=== PATIENT | female | born 1955 | race Caucasian/White ===

== ENCOUNTER 2018-06-30 11:40 | Outpatient (CLI) | payer OTHER ==
--- NOTE | 2018-07-10 09:11 | Mammography Report ---
Reason: SCREENING MAMMO Procedure Date: 06/30/2018 Accession Number: [id number] / [id number] Procedure: STACEY - Screening Mammo w/Logan CPT Code: FULL RESULT: EXAM: Screening Mammo w/Logan DATE: 06/30/2018 12:38 PM CLINICAL HISTORY: Screening encounter. Family history of breast cancer in a maternal aunt at age 55. TECHNIQUE: Bilateral CC and MLO views were obtained. COMPARISON: No comparison mammograms are available. FINDINGS: The breasts demonstrate diffuse fatty replacement bilaterally. Coarse typically benign calcifications are seen bilaterally. No suspicious masses, clustered microcalcifications, or regions of architectural distortion are identified. IMPRESSION: Benign findings RECOMMENDATION: Routine annual screening unless otherwise clinically indicated. BIRADS CATEGORY 2: Benign findings STANDARD QUALIFYING STATEMENTS: 1. This examination was not reviewed with the aid of Computer-Aided Detection (CAD). 2. A negative or benign imaging report should not preclude biopsy if clinically suspicious findings are present. 3. Dense breasts may obscure an underlying neoplasm. 4. This examination was reviewed with the aid of 3D breast imaging (tomosynthesis).
== END 2018-06-30 11:41 | disposition home or self-care (01) ==
LOC: DI 11:40
PROVIDERS: ATTEND Nurse Practitioner
DX: Z12.31 Encounter for screening mammogram for malignant neoplasm of breast (principal); Z80.3 Family history of malignant neoplasm of breast
CPT/HCPCS: 77063; 77067

== ENCOUNTER 2018-08-07 08:00 | Outpatient (CLI) | payer OTHER ==
[2018-08-07 14:21] LABS: H. PYLORIS ANTIGEN STL POSITIVE (Negative)
== END 2018-08-07 23:59 | disposition home or self-care (01) ==
LOC: LAB.R 08:00
PROVIDERS: ATTEND Nurse Practitioner
DX: R10.9 Unspecified abdominal pain (principal); R19.7 Diarrhea, unspecified
CPT/HCPCS: 36415; 80053; 81001; 82274; 85025; 87045; 87046; 87086; 87177; 87209; 87338; 87493

== ENCOUNTER 2018-08-07 08:00 | Outpatient (CLI) | payer OTHER ==
[2018-08-07 19:24] LABS: ALBUMIN 3.9 g/dL (3.2-5.5); ALBUMIN/GLOBULIN RATIO 1.1 (1.0-2.2); BILIRUBIN,TOTAL 0.5 mg/dL (0.2-1.0); CREATININE 0.7 mg/dL (0.4-1.0); TOTAL PROTEIN 7.3 g/dL (6.7-8.2)
[2018-08-07 19:28] LABS: GLUCOSE, URINE (UA) NEGATIVE (NEGATIVE); KETONES,URINE (UA) TRACE mg/dL (NEGATIVE); LEUKOCYTE ESTERASE, URINE NEGATIVE (NEGATIVE); NITRITE,URINE NEGATIVE (NEGATIVE); OCCULT BLOOD,URINE NEGATIVE (NEGATIVE); PROTEIN,URINE NEGATIVE (NEGATIVE); UROBILINOGEN,URINE 0.2 (NORMAL) E.U./dL (NORMAL)
[2018-08-07 19:29] LABS: BASOPHILS % (AUTO) 0.6 %; EOSINOPHILS # (AUTO) 0.1 10^3/uL (0.0-0.7); EOSINOPHILS % (AUTO) 0.8 %; LYMPHOCYTES # (AUTO) 1.7 10^3/uL (1.5-3.5); LYMPHOCYTES % (AUTO) 24.5 %; MEAN CORPUSCULAR HGB CONC 32.4 g/dL (32.0-36.0); MEAN CORPUSCULAR VOLUME 92.5 fL (81.0-99.0); MONOCYTES # (AUTO) 0.7 10^3/uL (0.0-1.0); MONOCYTES % (AUTO) 10.7 %; NEUTROPHILS # (AUTO) 4.4 10^3/uL (1.5-6.6); NEUTROPHILS % (AUTO) 63.4 %; PLT - PLATELET COUNT 324 10^3/uL (130-450); RED BLOOD COUNT 4.67 10^6/uL (4.20-5.40); RED CELL DISTRIBUTION WIDTH 13.6 % (12.0-15.0)
[2018-08-07 20:05] LABS: AMORPHOUS SEDIMENT,UR Moderate /LPF; BACTERIA,URINE Moderate /HPF (None Seen); CASTS, URINE 6-10 Hyaline Casts /LPF; CLARITY,URINE TURBID (CLEAR); MUCUS,URINE Moderate Strands; RBC,URINE 0-5 /HPF (0-5); SQUAMOUS EPITHELIAL CELL,UR FEW Squamous (<= Few)
[2018-08-07 20:06] LABS: BILIRUBIN,URINE NEGATIVE (NEGATIVE); CRYSTALS,URINE 11-25 Ca Oxalate /LPF; ICTOTEST,URINE NEGATIVE
== END 2018-08-07 23:59 | disposition home or self-care (01) ==
LOC: LAB.N 08:00
PROVIDERS: ATTEND Nurse Practitioner
DX: R10.9 Unspecified abdominal pain (principal)
CPT/HCPCS: 36415; 80053; 81001; 85025; 87086

== ENCOUNTER 2018-08-22 08:00 | Outpatient (CLI) | payer OTHER ==
[2018-08-22 12:57] LABS: H. PYLORIS ANTIGEN STL NEGATIVE (Negative)
== END 2018-08-22 23:59 | disposition home or self-care (01) ==
LOC: LAB.R 08:00
PROVIDERS: ATTEND Nurse Practitioner
DX: A04.5 Campylobacter enteritis (principal); A04.8 Other specified bacterial intestinal infections; R19.5 Other fecal abnormalities
CPT/HCPCS: 82274; 87045; 87046; 87338

== ENCOUNTER 2018-12-04 07:06 | Outpatient (CLI) | payer OTHER ==
[2018-12-04 12:37] LABS: BASOPHILS # (AUTO) 0.1 10^3/uL (0.0-0.1); BASOPHILS % (AUTO) 0.8 %; EOSINOPHILS # (AUTO) 0.1 10^3/uL (0.0-0.7); EOSINOPHILS % (AUTO) 1.3 %; HGB - HEMOGLOBIN 13.5 g/dL (12.0-16.0); LYMPHOCYTES # (AUTO) 1.7 10^3/uL (1.5-3.5); LYMPHOCYTES % (AUTO) 25.5 %; MEAN CORPUSCULAR HEMOGLOBIN 29.4 pg (27.0-31.0); MEAN CORPUSCULAR VOLUME 89.1 fL (81.0-99.0); MONOCYTES # (AUTO) 0.6 10^3/uL (0.0-1.0); MONOCYTES % (AUTO) 8.9 %; NEUTROPHILS # (AUTO) 4.1 10^3/uL (1.5-6.6); NEUTROPHILS % (AUTO) 63.5 %; PLT - PLATELET COUNT 287 10^3/uL (130-450); RED BLOOD COUNT 4.59 10^6/uL (4.20-5.40); RED CELL DISTRIBUTION WIDTH 14.2 % (12.0-15.0); WHITE BLOOD COUNT 6.5 x10^3/uL (4.8-10.8)
[2018-12-04 12:53] LABS: HB2 TOTAL 14.5 g/dL; HEMOGLOBIN A1C 0.62 g/dL; HEMOGLOBIN A1C % 6.1 % (4.6-6.2)
[2018-12-04 12:55] LABS: ALBUMIN 3.6 g/dL (3.2-5.5); ALBUMIN/GLOBULIN RATIO 1.2 (1.0-2.2); ALKALINE PHOSPHATASE 89 IU/L (42-121); ALT ALANINE AMINOTRANSFERASE 31 IU/L (10-60); AST ASPARTATE AMINOTRANSFERASE 28 IU/L (10-42); BILIRUBIN,TOTAL 0.6 mg/dL (0.2-1.0); BUN - BLOOD UREA NITROGEN 23 mg/dL (6-20); CHOL/HDL RATIO 3.8 (<4.4); CHOLESTEROL 179 mg/dL; CREATININE 0.7 mg/dL (0.4-1.0); GFR - MDRD 85 (>89); HDL CHOLESTEROL 47 mg/dL; LDL CHOLESTEROL,CALCULATED 104 mg/dL; LDL/HDL RATIO 2.2 (<4.4); TOTAL PROTEIN 6.6 g/dL (6.7-8.2); VLDL CHOLESTEROL 28 mg/dL
[2018-12-04 13:02] LABS: CALCIUM 8.7 mg/dL (8.5-10.3); CARBON DIOXIDE - CO2 26 mmol/L (21-32); CHLORIDE 104 mmol/L (101-111); GLUCOSE 113 mg/dL (70-100); SODIUM 138 mmol/L (135-145)
== END 2018-12-04 23:59 | disposition home or self-care (01) ==
LOC: LAB.N 07:06
PROVIDERS: ATTEND Nurse Practitioner
DX: E11.9 Type 2 diabetes mellitus without complications (principal); I10 Essential (primary) hypertension
CPT/HCPCS: 36415; 80053; 80061; 82043; 83036; 83721; 84443; 85025

== ENCOUNTER 2018-12-04 10:19 | Emergency (ER) | payer OTHER ==
[2018-12-04] MEDS ORDERED: MORPHINE 10 MG/ML VIAL IM STA (11:17)
[2018-12-04 11:31] LABS: BILIRUBIN,URINE NEGATIVE (NEGATIVE); GLUCOSE, URINE (UA) NEGATIVE (NEGATIVE); KETONES,URINE (UA) NEGATIVE (NEGATIVE); LEUKOCYTE ESTERASE, URINE NEGATIVE (NEGATIVE); NITRITE,URINE NEGATIVE (NEGATIVE); OCCULT BLOOD,URINE NEGATIVE (NEGATIVE); PROTEIN,URINE NEGATIVE (NEGATIVE); UROBILINOGEN,URINE 0.2 (NORMAL) E.U./dL (NORMAL)
[2018-12-04 11:32] LABS: CLARITY,URINE HAZY (CLEAR)
[2018-12-04 11:39] LABS: RBC,URINE 0-5 /HPF (0-5)
[2018-12-04 11:40] LABS: BACTERIA,URINE Many /HPF (None Seen); EPITHELIAL CELLS,UR FEW Transitional /HPF (<= Few); SQUAMOUS EPITHELIAL CELL,UR MANY Squamous (<= Few)
--- NOTE | 2018-12-04 11:56 | XRAY Report ---
Reason: low back pain after injury Procedure Date: 12/04/2018 Accession Number: [id number] / [id number] Procedure: XR - Lumbar Spine 2 View CPT Code: FULL RESULT: EXAM: LUMBOSACRAL SPINE RADIOGRAPHY EXAM DATE: 12/04/2018 11:47 AM. CLINICAL HISTORY: Low back pain after injury. COMPARISONS: None. TECHNIQUE: 3 views. FINDINGS: Alignment: Grade 1 anterolisthesis L4 L5 Bones: Five [id number]-[id number] lumbar vertebral bodies are present. No fractures or bone lesions. Disks: Small osteophytes L1-L2, L2-L3, L3-L4, L4-L5 and L5-S1 Facets: L5-S1 facet arthropathy Sacroiliac Joints: Unremarkable. Soft Tissues: Vascular calcifications. Right upper quadrant clips. The visualized bowel gas pattern is normal. IMPRESSION: Mild DJD RADIA
--- NOTE | 2018-12-04 12:24 | ED Physician Documentation ---
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 The pain started 4 days ago after helping transfer a patient from wheelchair to bed. It has persisted since that time. She denies fever, abdominal pain, numbness or weakness, or urinary incontinence. She does report mild dysuria. She denies history of similar symptoms in the past. Review of Systems Constitutional: denies: Fever Ears: denies: Tinnitus/ringing Nose: denies: Congestion Cardiac: denies: Chest pain / pressure Respiratory: denies: Dyspnea, Cough GI: denies: Abdominal Pain, Nausea, Vomiting : reports: Dysuria (mild). denies: Incontinent Skin: reports: Rash Musculoskeletal: reports: Back pain. denies: Extremity pain Neurologic: denies: Focal weakness, Numbness, Headache PD PAST MEDICAL HISTORY - Past Medical History Past Medical History: Yes Cardiovascular: Other Respiratory: Shortness of breath Neuro: None Endocrine/Autoimmune: HyPOthyroidism GI: None, Other : None, Other HEENT: Other Psych: Depression Musculoskeletal: None Derm: Other Other Past Medical History: pre osteoporosis, pancreatitis, vulvular ca. - Past Surgical History Past Surgical History: Yes General: Cholecystectomy - Present Medications Home Medications: Ambulatory Orders Medication Instructions Recorded Confirmed Celecoxib 200 mg PO DAILY 08/21/18 08/21/18 Fluoxetine HCl 40 mg PO DAILY 08/21/18 08/21/18 Levothyroxine [Synthroid] 75 mcg PO QDAC 08/21/18 08/21/18 Pravastatin [Pravachol] 1 tab ORAL DAILY 08/21/18 08/21/18 Cyclobenzaprine [Flexeril] 10 mg PO TID PRN #20 tablet 12/04/18 Nitrofurantoin Monohyd/M-Cryst 100 mg PO BID #10 capsule 12/04/18 [Macrobid 100 mg Capsule] Phenazopyridine HCl [Pyridium] 200 mg PO TID PRN #6 tablet 12/04/18 - Allergies Allergies/Adverse Reactions: Allergies Allergy/AdvReac Type Severity Reaction Status Date / Time No Known Drug Allergies Allergy Verified 12/04/18 10:35 - Social History Does the pt smoke?: Yes Smoking Status: Former smoker Does the pt drink ETOH?: Yes Does the pt have substance abuse?: No PD ED PE NORMAL - Vitals Vital signs reviewed: Yes (normal) - General General: Alert and oriented X 3, Well developed/nourished - HEENT HEENT: Atraumatic - Neck Neck: No bony TTP, No adenopathy - Cardiac Cardiac: RRR - Respiratory Respiratory: No respiratory distress, Clear bilaterally - Abdomen Abdomen: Soft, Non tender, Other (Rotund abdomen.) - Back Back: No CVA TTP, Other (There is tenderness to palpation in the paralumbar musculature bilaterally. There is also mild tenderness along the spinous processes.) - Derm Derm: No rash - Extremities Extremities: No edema, No calf tenderness / cord, Other (Straight leg raise test is negative bilaterally.) - Neuro Neuro: Alert and oriented X 3, No motor deficit, No sensory deficit Results - Vitals Vitals: Oxygen O2 Source Room air - Labs Labs: Laboratory Tests 12/04/18 11:24 Urine Color YELLOW Urine Clarity HAZY Urine pH 7.0 Ur Specific [place] 1.015 Urine Protein NEGATIVE Urine Glucose (UA) NEGATIVE Urine Ketones NEGATIVE Urine Occult Blood NEGATIVE Urine Nitrite NEGATIVE Urine Bilirubin NEGATIVE Urine Urobilinogen 0.2 (NORMAL) Ur Leukocyte Esterase NEGATIVE Urine RBC 0-5 Urine WBC 6-10 H Ur Epithelial Cells FEW Transitional Ur Squamous Epith Cells MANY Squamous H Urine Bacteria Many H Ur Microscopic Review INDICATED Urine Culture Comments NOT INDICATED - Rads (name of study) LS spine Radiology: Prelim report reviewed, EMP read contemporaneously, See rad report (Mild degenerative joint disease.) PD MEDICAL DECISION MAKING - ED course Complexity details: reviewed results, re-evaluated patient, considered differential, d/w patient, other (L&I form was completed.) ED course: The patient's presentation is most consistent with lumbar strain. X-ray of her lumbar spine reveals no acute bony abnormality. Her urinalysis is also positive for leukouria and bacteriuria, although it is equivocal due to the presence of squamous cells. Given her history of dysuria, she will be treated for urinary tract infection. She is being discharged with prescriptions for Macrobid, Pyridium, and Flexeril. I discussed with her the expected course of illness, outpatient treatment and follow-up, as well as potentially worrisome signs or symptoms that should prompt reevaluation in the emergency department. Departure - Departure Disposition: 01 Home, Self Care Clinical Impression: Back pain Qualifiers: Back pain location: low back pain Chronicity: acute Back pain laterality: bilateral Sciatica presence: without sciatica Qualified Code(s): M54.5 - Low back pain UTI (urinary tract infection) Qualifiers: Urinary tract infection type: acute cystitis Hematuria presence: without hematuria Qualified Code(s): N30.00 - Acute cystitis without hematuria Condition: Stable Instructions: ED Low Back Pain Injury, ED UTI Cystitis Female Follow-Up: Itzel Mosley DNP [Credentialed Staff Provider] - Prescriptions: Cyclobenzaprine [Flexeril] 10 mg PO TID PRN #20 tablet PRN Reason: Spasms Nitrofurantoin Monohyd/M-Cryst [Macrobid 100 mg Capsule] 100 mg PO BID #10 capsule Phenazopyridine HCl [Pyridium] 200 mg PO TID PRN #6 tablet PRN Reason: dysuria Comments: Drink plenty of fluids, including cranberry juice. Take Macrobid twice daily as prescribed. You can use Pyridium as prescribed if needed for painful urination. You can use Tylenol or ibuprofen as needed for fever or discomfort. Apply ice pack to your lower back intermittently for the next 3 or 4 days. You can use ibuprofen, up to 800 mg 3 times daily for its anti-inflammatory effect. You can use as Flexeril prescribed if needed for pain or muscle spasms. Let pain be your guide to activity level. Follow up with your primary physician within 1-2 weeks. Call to schedule an appointment. Return to the emergency department if you develop increasing pain, numbness or weakness, urinary incontinence, or otherwise worsening symptoms. Forms: Activity restrictions Discharge Date/Time: 12/04/18 12:52
[2018-12-04 12:57] VITALS: BP 133/62
== END 2018-12-04 12:52 | disposition home or self-care (01) ==
LOC: ED 10:19
DX: M54.5 Low back pain (principal); N30.00 Acute cystitis without hematuria; X50.9XXA Other and unspecified overexertion or strenuous movements or postures, initial encounter; Y93.F2 Activity, caregiving, lifting; Y99.0 Civilian activity done for income or pay; E03.9 Hypothyroidism, unspecified; Z87.891 Personal history of nicotine dependence
CPT/HCPCS: 1040M; 72100; 81001; 99283; 81003; 87086

== ENCOUNTER 2018-12-26 07:10 | Outpatient (CLI) | payer OTHER ==
--- NOTE | 2018-12-26 15:48 | Ultrasound Report ---
Reason: ABDOMINAL PAIN, ACUTE Procedure Date: 12/26/2018 Accession Number: [id number] / [id number] Procedure: US - Pelvic Limited or F/U CPT Code: FULL RESULT: EXAM: PELVIS ULTRASOUND, LIMITED EXAM DATE: 12/26/2018 08:00 AM. CLINICAL HISTORY: Abdominal pain, acute at pelvic scar. Rule out hernia. COMPARISON: None. TECHNIQUE: Real-time scanning was performed with static images obtained. FINDINGS: Targeted ultrasound over the inferior aspect of midline scar at site of patient's symptoms shows no hernia. Subtle scarring change noted in the deep subcutaneous fat adjacent to the anterior pelvic wall. IMPRESSION: Expected scarring changes in the deep subcutaneous tissues at the site of symptoms. No appreciable hernia. RADIA
== END 2018-12-26 07:11 | disposition home or self-care (01) ==
LOC: DI 07:10
PROVIDERS: ATTEND Nurse Practitioner
DX: R10.9 Unspecified abdominal pain (principal)
CPT/HCPCS: 76857

== ENCOUNTER 2019-02-21 10:40 | Emergency (ER) | payer OTHER ==
[2019-02-21] MEDS ORDERED: IPRATROPIUM/ALBUTEROL 3 ML NEB INH STA ×2 (11:42→13:31)
[2019-02-21] MEDS ORDERED: DEXAMETHASONE 10 MG/ML VIAL IVP STA (11:42)
[2019-02-21] MEDS ORDERED: SODIUM CHLORIDE 0.9% 1,000 ML IV ONE (11:42)
--- NOTE | 2019-02-21 11:45 | ED Physician Documentation ---
PD HPI DYSPNEA - Stated complaint Stated Complaint: DIFF BREATHING - Chief complaint Chief Complaint: Resp - History obtained from History obtained from: Patient - History of Present Illness Timing - onset: How many months ago (1) Timing - onset during: Light activity Timing - duration: Months (1) Timing - details: Gradual onset, Still present, Waxing and waning Inciting event(s): No: URI Improved by: Rest, Sitting up Worsened by: Exertion Associated symptoms: Chest pain / discomfort. No: Fever, Cough, Hemoptysis, Wheezing Similar symptoms before: No diagnosis Recently seen: Other - Additional information Additional information: 64-year-old female who has had some shortness of breath for the past month has had some chest discomfort with this as well and she has had a stress test done at [facility] as well as some pulmonary function testing done at [facility]. She states that yesterday pulmonary functions were done and they were poor and she apparently did not respond to an inhaler. She indicates that she stopped smoking about 4 years ago and she is not currently having any cough. She relates a history of exertional dyspnea and low oxygen saturations. Today her saturation was 85% and she is come to the emergency department for evaluation. Review of Systems Constitutional: denies: Fever Eyes: denies: Decreased vision Ears: denies: Ear pain Nose: denies: Rhinorrhea / runny nose, Congestion Throat: denies: Sore throat Cardiac: reports: Chest pain / pressure. denies: Palpitations Respiratory: reports: Dyspnea. denies: Cough, Wheezing GI: denies: Abdominal Pain, Nausea, Vomiting : denies: Dysuria, Frequency PD PAST MEDICAL HISTORY - Past Medical History Cardiovascular: Other Respiratory: Shortness of breath Neuro: None Endocrine/Autoimmune: HyPOthyroidism GI: None, Other : None, Other HEENT: Other Psych: Depression Musculoskeletal: None Derm: Other - Past Surgical History Past Surgical History: Yes General: Cholecystectomy - Present Medications Home Medications: Ambulatory Orders Medication Instructions Recorded Confirmed Levothyroxine [Synthroid] 75 mcg PO QDAC 08/21/18 08/21/18 RX: Celecoxib 200 mg PO DAILY 08/21/18 08/21/18 RX: Fluoxetine HCl 40 mg PO DAILY 08/21/18 08/21/18 RX: Pravastatin [Pravachol] 1 tab ORAL DAILY 08/21/18 08/21/18 Cyclobenzaprine [Flexeril] 10 mg PO TID PRN #20 tablet 12/04/18 Nitrofurantoin Monohyd/M-Cryst 100 mg PO BID #10 capsule 12/04/18 [Macrobid 100 mg Capsule] Phenazopyridine HCl [Pyridium] 200 mg PO TID PRN #6 tablet 12/04/18 RX: Albuterol Sulf [Ventolin Hfa 1 - 2 puffs INH Q4HR PRN #1 inhaler 02/21/19 Inhaler] RX: predniSONE [Deltasone] 10 mg PO ONCE #26 tablet 02/21/19 - Allergies Allergies/Adverse Reactions: Allergies Allergy/AdvReac Type Severity Reaction Status Date / Time No Known Drug Allergies Allergy Verified 02/21/19 10:58 - Social History Does the pt smoke?: Yes Smoking Status: Current every day smoker Does the pt drink ETOH?: Yes Does the pt have substance abuse?: No PD ED PE NORMAL - Vitals Vital signs reviewed: Yes (hypertensive mild) - General General: Alert and oriented X 3, No acute distress, Well developed/nourished - HEENT HEENT: Atraumatic, PERRL, EOMI - Neck Neck: Supple, no meningeal sign, No bony TTP - Cardiac Cardiac: RRR, No murmur - Respiratory Respiratory: No respiratory distress, Other (scattered wheezes, diminished breath sounds more wheezes in right base. 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 2-12 intact, No motor deficit, No sensory deficit, Normal speech Eye Opening: Spontaneous Motor: Obeys Commands Verbal: Oriented GCS Score: 15 - Psych Psych: Normal mood, Normal affect Results - Vitals Vitals: Vital Signs - 24 hr 02/21/19 02/21/19 02/21/19 10:44 11:56 13:49 Temperature 36.9 C Heart Rate 66 60 66 Respiratory 20 20 20 Rate Blood Pressure 139/72 H O2 Saturation 94 02/21/19 02/21/19 14:12 15:00 Temperature 36.5 C Heart Rate 86 66 Respiratory 21 19 Rate Blood Pressure 110/41 L 131/67 H O2 Saturation 94 91 L Oxygen O2 Source Room air - Labs Labs: Laboratory Tests 02/21/19 02/21/19 02/21/19 11:49 11:49 11:49 WBC 8.5 RBC 4.75 Hgb 13.8 Hct 42.6 MCV 89.7 MCH 29.1 MCHC 32.4 RDW 12.2 Plt Count 396 MPV 9.5 Neut # (Auto) 5.8 Lymph # (Auto) 1.8 [place] # (Auto) 0.7 Eos # (Auto) 0.1 Baso # (Auto) 0.1 Absolute Nucleated RBC 0.00 Nucleated RBC % 0.0 D-Dimer 948.9 H Sodium 138 Potassium 4.4 Chloride 103 Carbon Dioxide 21 Anion Gap 14.0 H BUN 19 Creatinine 0.8 Estimated GFR (MDRD) 72 L Glucose 113 H Calcium 9.3 Total Bilirubin 0.7 AST 39 ALT 48 Alkaline Phosphatase 82 Troponin I B-Natriuretic Peptide Total Protein 7.5 Albumin 3.7 Globulin 3.8 Albumin/Globulin Ratio 1.0 Lipase 34 02/21/19 02/21/19 11:49 11:49 WBC RBC Hgb Hct MCV MCH MCHC RDW Plt Count MPV Neut # (Auto) Lymph # (Auto) [place] # (Auto) Eos # (Auto) Baso # (Auto) Absolute Nucleated RBC Nucleated RBC % D-Dimer Sodium Potassium Chloride Carbon Dioxide Anion Gap BUN Creatinine Estimated GFR (MDRD) Glucose Calcium Total Bilirubin AST ALT Alkaline Phosphatase Troponin I < 0.04 B-Natriuretic Peptide 24 Total Protein Albumin Globulin Albumin/Globulin Ratio Lipase - Rads (name of study) pulm angio Radiology: Prelim report reviewed (Impression: 1. No pulmonary embolism. 2. Medium left pleural effusion with mild left lower lobe and lingular atelectasis. 3. Emphysema. 4. Severe three-vessel coronary artery atherosclerosis.), EMP read indepedently, See rad report Procedures - IVC sono (time) 1140 Bedside IVC sono: IVC measures (cm) (1.02), Dehydration (est 1-2 liter deficit) PD MEDICAL DECISION MAKING - ED course Complexity details: reviewed old records, reviewed results, re-evaluated patient, considered differential, d/w patient, d/w family ED course: 64 y/o female with undifferentiated exertional dyspnea has wheezes on exam an improvement with duoneb, no PE on exam and no infiltrate. She is dehydrated on interrogation of the IVC and she is administered saline, a duoneb treatment with improvement and decadron. She is given and second treatment without much further benefit and she is given instruction on use of an inhaler. She is prescribed inhaler and prednisone with expected improvement. She does have 3 vessel disease in the coronaries on the angiogram as an incidental finding and despite the recent negative stress test she will still need follow up with the supervisor cereal. Departure - Departure Disposition: 01 Home, Self Care Clinical Impression: Moderate COPD (chronic obstructive pulmonary disease), CAD (coronary artery disease) Condition: Stable Instructions: CAD, ED COPD Flare Follow-Up: Whitney Quintana ARNP, [facility] [Primary Care Provider] - Prescriptions: RX: Albuterol Sulf [Ventolin Hfa Inhaler] 1 - 2 puffs INH Q4HR PRN #1 inhaler PRN Reason: Shortness Of Air/Wheezing RX: predniSONE [Deltasone] 10 mg PO ONCE #26 tablet Comments: Today it appears your shortness of breath is related to COPD. You will likely need to manage lung disease chronically and today we are putting you on a course of steroid and an inhaler. A follow-up with your primary care doctor is imperative. In addition on your CT scan of your chest it does look like there is evidence of coronary artery disease. You have had a recent stress test and a follow-up with a supervisor cereal is recommended. Discharge Date/Time: 02/21/19 15:00
[2019-02-21 11:57] LABS: BASOPHILS # (AUTO) 0.1 10^3/uL (0.0-0.1); BASOPHILS % (AUTO) 0.7 %; EOSINOPHILS # (AUTO) 0.1 10^3/uL (0.0-0.7); EOSINOPHILS % (AUTO) 0.9 %; HGB - HEMOGLOBIN 13.8 g/dL (12.0-16.0); LYMPHOCYTES # (AUTO) 1.8 10^3/uL (1.5-3.5); LYMPHOCYTES % (AUTO) 21.6 %; MEAN CORPUSCULAR HEMOGLOBIN 29.1 pg (27.0-31.0); MEAN CORPUSCULAR HGB CONC 32.4 g/dL (32.0-36.0); MEAN CORPUSCULAR VOLUME 89.7 fL (81.0-99.0); MEAN PLATELET VOLUME 9.5 fL (7.9-10.8); MONOCYTES # (AUTO) 0.7 10^3/uL (0.0-1.0); MONOCYTES % (AUTO) 8.2 %; NEUTROPHILS # (AUTO) 5.8 10^3/uL (1.5-6.6); PLT - PLATELET COUNT 396 10^3/uL (130-450); RED BLOOD COUNT 4.75 10^6/uL (4.20-5.40); RED CELL DISTRIBUTION WIDTH 12.2 % (12.0-15.0); WHITE BLOOD COUNT 8.5 x10^3/uL (4.8-10.8)
[2019-02-21] MEDS ORDERED: IOVERSOL 320 100 ML VIAL IVP ONE (11:57)
[2019-02-21 12:12] LABS: ALBUMIN 3.7 g/dL (3.2-5.5); BILIRUBIN,TOTAL 0.7 mg/dL (0.2-1.0); CALCIUM 9.3 mg/dL (8.5-10.3); CREATININE 0.8 mg/dL (0.4-1.0); TOTAL PROTEIN 7.5 g/dL (6.7-8.2)
--- NOTE | 2019-02-21 13:39 | CT Report ---
Reason: persistent soa Procedure Date: 02/21/2019 Accession Number: [id number] / [id number] Procedure: CT - ANGIO CHEST W/WO CPT Code: FULL RESULT: EXAM: CT ANGIOGRAM CHEST EXAM DATE: 02/21/2019 12:43 PM. CLINICAL HISTORY: Persistent sob. COMPARISON: None. TECHNIQUE: Routine helical imaging was performed through the chest in the pulmonary arterial phase. IV Contrast: OPTI 320 80ML. Reconstructions: Coronal 3-D MIP reconstructions.Sagittal and coronal. In accordance with CT protocol optimization, one or more of the following dose reduction techniques were utilized for this exam: automated exposure control, adjustment of mA and/or KV based on patient size, or use of iterative reconstructive technique. FINDINGS: Respiratory motion artifact moderately degrades diagnostic quality of images on the left. Pulmonary Arteries: Diagnostic quality: Adequate through the segmental arteries. No evidence for acute or chronic pulmonary emboli. RV/LV is within normal limits. There is no interventricular septal bowing. There is no reflux of contrast material in the IVC. Lungs/Pleura: Mild paraseptal emphysema. Mild mosaic attenuation was consistent with air trapping. Medium pleural effusion. Mild left lower lobe and lingular atelectasis. Mediastinum: Normal heart size. No pericardial effusion. There is severe three-vessel coronary artery atherosclerosis. No thoracic lymphadenopathy. Thoracic Aorta: Moderate atherosclerosis without aneurysm. Upper Abdomen: Cholecystectomy. Other: Severe degenerative disk disease of the thoracic spine IMPRESSION: 1. No pulmonary embolism. 2. Medium left pleural effusion with mild left lower lobe and lingular atelectasis. 3. Emphysema. 4. Severe three-vessel coronary artery atherosclerosis. RADIA
[2019-02-21 15:02] VITALS: BP 131/67
[2019-02-23] MEDS ORDERED: IOVERSOL 320 100 ML VIAL IVP ONE (10:36)
== END 2019-02-21 15:00 | disposition home or self-care (01) ==
LOC: ED 10:40
DX: J44.9 Chronic obstructive pulmonary disease, unspecified (principal); I25.10 Atherosclerotic heart disease of native coronary artery without angina pectoris; E86.0 Dehydration; Z87.891 Personal history of nicotine dependence
CPT/HCPCS: 36415; 71275; 80053; 83690; 83880; 84484; 85025; 85379; 94640; 94664; 96361; 96374; 99284; Q9967

== ENCOUNTER 2019-03-09 08:29 | Observation (INO) | payer OTHER ==
--- NOTE | 2019-03-09 08:41 | ED Physician Documentation ---
PD HPI DYSPNEA - Stated complaint Stated Complaint: SOA - Chief complaint Chief Complaint: Resp - History obtained from History obtained from: Patient - History of Present Illness Timing - onset: How many weeks ago (Few weeks) Timing - onset during: Light activity Timing - duration: Weeks Timing - details: Gradual onset (She has had a few weeks of shortness of breath and wheezing. She has had some cough but no fevers no productive sputum. She is seen here in the ER couple weeks ago and treated with nebulizer treatments st eroid rides. She had a CT of the chest to evaluate for blood clots which was negative. There was an effusion noted on the left side. She was referred to pulmonology by her primary care and follow-up. She had Advair started as well and was to have a appointment this coming Saturday in [facility] interventional radiology for thoracentesis of the effusion. She states she was doing moderately improved until she was off the steroids at which point she had increased wheezing again and has had a noticeable worsening in dyspnea and exertional dyspnea over the past few days in particular. She is able to just walk across the room and feels short of breath.) Inciting event(s): URI (some cough and congestion, but no fever.). No: Out of meds Improved by: Inhaler/neb, Rest Worsened by: Exertion, Coughing Associated symptoms: Cough, Wheezing. No: Fever, Hemoptysis, Chest pain / discomfort, Palpitations, Bilateral edema Similar symptoms before: Has not had sx before Recently seen: Clinic (Seen by her primary care and then by pulmonology in [facility] this past week and was to have an appointment this coming Saturday in interventional radiology for thoracentesis.), Emergency Dept (Couple of weeks ago with blood tests and CT scan.) Review of Systems Constitutional: reports: Myalgias, Fatigue. denies: Fever, Chills Nose: reports: Congestion. denies: Rhinorrhea / runny nose Throat: denies: Sore throat Cardiac: denies: Chest pain / pressure, Palpitations Respiratory: reports: Dyspnea, Cough, Wheezing GI: denies: Abdominal Pain, Nausea, Vomiting, Diarrhea, Bloody / black stool Skin: denies: Rash, Lesions Musculoskeletal: denies: Extremity swelling Neurologic: reports: Generalized weakness. denies: Focal weakness, Numbness, Near syncope, Altered mental status, Headache PD PAST MEDICAL HISTORY - Past Medical History Cardiovascular: Other Respiratory: Shortness of breath Neuro: None Endocrine/Autoimmune: HyPOthyroidism GI: None, Other : None, Other HEENT: Other Psych: Depression Musculoskeletal: None Derm: Other - Past Surgical History Past Surgical History: Yes General: Cholecystectomy - Present Medications Home Medications: Ambulatory Orders Medication Instructions Recorded Confirmed Celecoxib 200 mg PO DAILY 08/21/18 08/21/18 Fluoxetine HCl 40 mg PO DAILY 08/21/18 08/21/18 Levothyroxine [Synthroid] 75 mcg PO QDAC 08/21/18 08/21/18 Pravastatin [Pravachol] 1 tab ORAL DAILY 08/21/18 08/21/18 Cyclobenzaprine [Flexeril] 10 mg PO TID PRN #20 tablet 12/04/18 Nitrofurantoin Monohyd/M-Cryst 100 mg PO BID #10 capsule 12/04/18 [Macrobid 100 mg Capsule] Phenazopyridine HCl [Pyridium] 200 mg PO TID PRN #6 tablet 12/04/18 Albuterol Sulf [Ventolin Hfa 1 - 2 puffs INH Q4HR PRN #1 inhaler 02/21/19 Inhaler] predniSONE [Deltasone] 10 mg PO ONCE #26 tablet 02/21/19 - Allergies Allergies/Adverse Reactions: Allergies Allergy/AdvReac Type Severity Reaction Status Date / Time No Known Drug Allergies Allergy Verified 03/09/19 08:38 - Social History Does the pt smoke?: Yes Smoking Status: Current every day smoker Does the pt drink ETOH?: Yes Does the pt have substance abuse?: No PD ED PE NORMAL - Vitals Vital signs reviewed: Yes (hypoxic on RA) - General General: Alert and oriented X 3, Well developed/nourished - HEENT HEENT: Ears normal, Moist mucous membranes, Pharynx benign - Neck Neck: Supple, no meningeal sign, No adenopathy - Cardiac Cardiac: No murmur. No: RRR (tachy but regular) - Respiratory Respiratory: No: Clear bilaterally (Diffuse wheezing. There is significantly decreased breath sounds on the left side. Upper lung. There is some mild prolonged expiratory phase. No accessory muscle use.) - Abdomen Abdomen: Soft, Non tender - Back Back: No CVA TTP - Derm Derm: Normal color, Warm and dry - Extremities Extremities: No deformity, No tenderness to palpate, Normal ROM s pain, No edema - Neuro Neuro: Alert and oriented X 3, No motor deficit, No sensory deficit, Normal speech Eye Opening: Spontaneous Motor: Obeys Commands Verbal: Oriented GCS Score: 15 Results - Vitals Vitals: Vital Signs - 24 hr 03/09/19 03/09/19 03/09/19 08:36 08:54 09:11 Temperature 35.7 C L Heart Rate 113 H 94 93 Respiratory 24 24 18 Rate Blood Pressure 143/77 H 143/77 H O2 Saturation 87 L 92 03/09/19 03/09/19 03/09/19 10:28 11:43 12:57 Temperature 36.7 C Heart Rate 95 93 91 Respiratory 20 20 20 Rate Blood Pressure 115/69 114/71 O2 Saturation 93 96 Oxygen O2 Source Nasal cannula Oxygen Flow Rate 2 - Labs Labs: Microbiology 03/09/19 12:56 Body Fluid Culture - Preliminary Pleural Fluid Laboratory Tests 03/09/19 03/09/19 03/09/19 09:05 09:05 09:05 WBC 13.0 H RBC 4.97 Hgb 14.5 Hct 45.2 MCV 90.9 MCH 29.2 MCHC 32.1 RDW 13.1 Plt Count 308 MPV 10.1 Neut # (Auto) 9.5 H Lymph # (Auto) 2.0 Ferry # (Auto) 1.2 H Eos # (Auto) 0.1 Baso # (Auto) 0.1 Absolute Nucleated RBC 0.00 Nucleated RBC % 0.0 Sodium 141 Potassium 3.8 Chloride 103 Carbon Dioxide 23 Anion Gap 15.0 H BUN 24 H Creatinine 0.7 Estimated GFR (MDRD) 85 L Glucose 162 H Calcium 9.2 Magnesium 2.3 Total Bilirubin 1.0 AST 24 ALT 26 Alkaline Phosphatase 67 B-Natriuretic Peptide 22 Total Protein 7.0 Albumin 3.7 Globulin 3.3 Albumin/Globulin Ratio 1.1 Lipase 27 Fluid Source Fluid Color Fluid Clarity Fluid WBC Fluid RBC Fluid Neutrophils % Fluid Lymphocytes % Fluid Monocytes % Fluid Macrophages % Fld Mesothelial Cell % Fluid Other Cells % 03/09/19 12:56 WBC RBC Hgb Hct MCV MCH MCHC RDW Plt Count MPV Neut # (Auto) Lymph # (Auto) Ferry # (Auto) Eos # (Auto) Baso # (Auto) Absolute Nucleated RBC Nucleated RBC % Sodium Potassium Chloride Carbon Dioxide Anion Gap BUN Creatinine Estimated GFR (MDRD) Glucose Calcium Magnesium Total Bilirubin AST ALT Alkaline Phosphatase B-Natriuretic Peptide Total Protein Albumin Globulin Albumin/Globulin Ratio Lipase Fluid Source PLEURAL Fluid Color PINK Fluid Clarity CLOUDY Fluid WBC 1920 Fluid RBC 11 Fluid Neutrophils % 10 Fluid Lymphocytes % 65.0 Fluid Monocytes % 10.0 Fluid Macrophages % 12.0 Fld Mesothelial Cell % 3.0 Fluid Other Cells % SEE COMMENT - Rads (name of study) chest xray Radiology: Prelim report reviewed, EMP read contemporaneously (Moderately large effusion on the left side considerably increased from recent CT scan. No infiltrate necessarily. There is some consolidated areas within the fluid suggesting atelectasis or possible infiltrate), See rad report post thoracentesis chest xray Radiology: Prelim report reviewed, EMP read contemporaneously (Considerable decrease in size in the left effusion. There is some interstitial changes consistent with either atelectasis or possible early infiltrates. No pneumothorax.), See rad report Procedures - Thoracentesis Preparation: Consent obtained (verbal), Sterile prep and drape, Sitting, Local - lidocaine Technique: Catheter over needle, Intercostal space - enter (10), Left, Midscapular line, Other (1800 ml withdrawn), Ultrasound used Fluid: Cloudy, Sent for cell count, Sent for gram stain, Sent for culture, Sent fluid:serum LDH, Sent fluid:serum protein, Sent for cytology Aftercare: CXR obtained, No pneumo, No complications, Patient tolerated well, Dressing applied PD MEDICAL DECISION MAKING - ED course Complexity details: re-evaluated patient (After some coughing and a little bit of pleuritic pain post procedure and a repeat neb treatment. She is feeling breathing easier and the pain is decreased. However her oxygenation still remains 85 to 89% on room air. She is resumed on oxygen. I talked with the hospitalist as I feel she still needs treatment of her COPD component. She is given nebulizer steroids and antibiotics.), considered differential (She has some improvement with nebulizer treatments. She is still having dyspnea on assumedly this is from her compounded by the large effusion. With verbal permission and after discussion and answering questions I did do the thoracentesis on the left side. I had also discussed it with pulmonology on- call in [facility].), d/w patient ED course: I was anticipating a considerable improvement in her breathing and oxygenation after thoracentesis. However she is still remains hypoxic on room air with some wheezing sounds. Repeat nebulizer treatment is done. She may be still having some poor aeration into the atelectatic area of the lung. However at this point I think she needs further treatment with nebulizers. She was given steroids here. Think there is concern enough for potential infection to give antibiotics as well. I talked with the patient about hospitalization and she was agreeable. I talked to the hospitalist about hospitalization as well and Dr. Trinidad is also agreeable. Departure - Departure Disposition: ED Place in Observation Clinical Impression: Asthma exacerbation in COPD, Pleural effusion, Hypoxia, Status post thoracentesis Condition: Stable Record reviewed to determine appropriate education?: Yes
[2019-03-09] MEDS ORDERED: SODIUM CHLORIDE 0.9% 1,000 ML IV ONE ×2 (08:57→13:00)
[2019-03-09] MEDS ORDERED: IPRATROPIUM/ALBUTEROL 3 ML NEB INH STA ×2 (08:58→12:59)
[2019-03-09] MEDS ORDERED: DEXAMETHASONE 10 MG/ML VIAL IVP STA (08:58)
[2019-03-09 09:14] LABS: BASOPHILS # (AUTO) 0.1 10^3/uL (0.0-0.1); BASOPHILS % (AUTO) 0.5 %; EOSINOPHILS # (AUTO) 0.1 10^3/uL (0.0-0.7); EOSINOPHILS % (AUTO) 0.6 %; HGB - HEMOGLOBIN 14.5 g/dL (12.0-16.0); LYMPHOCYTES % (AUTO) 15.6 %; MEAN CORPUSCULAR HEMOGLOBIN 29.2 pg (27.0-31.0); MEAN CORPUSCULAR HGB CONC 32.1 g/dL (32.0-36.0); MEAN CORPUSCULAR VOLUME 90.9 fL (81.0-99.0); MEAN PLATELET VOLUME 10.1 fL (7.9-10.8); MONOCYTES # (AUTO) 1.2 10^3/uL (0.0-1.0); MONOCYTES % (AUTO) 9.5 %; NEUTROPHILS # (AUTO) 9.5 10^3/uL (1.5-6.6); NEUTROPHILS % (AUTO) 72.9 %; PLT - PLATELET COUNT 308 10^3/uL (130-450); RED BLOOD COUNT 4.97 10^6/uL (4.20-5.40); RED CELL DISTRIBUTION WIDTH 13.1 % (12.0-15.0)
[2019-03-09 09:28] LABS: ALBUMIN 3.7 g/dL (3.2-5.5); ALBUMIN/GLOBULIN RATIO 1.1 (1.0-2.2); CALCIUM 9.2 mg/dL (8.5-10.3); CREATININE 0.7 mg/dL (0.4-1.0); MAGNESIUM 2.3 mg/dL (1.7-2.8)
[2019-03-09] MEDS ORDERED: ALBUTEROL NEB 2.5 MG/3 ML INH STA (09:56)
--- NOTE | 2019-03-09 10:21 | XRAY Report ---
Reason: 2 view with left lateral decub Procedure Date: 03/09/2019 Accession Number: [id number] / [id number] Procedure: XR - Chest 3 View X-Ray CPT Code: 51068 FULL RESULT: EXAM: CHEST RADIOGRAPHY EXAM DATE: 03/09/2019 10:06 AM. CLINICAL HISTORY: Dyspnea. COMPARISON: CHEST ANGIO 02/21/2019 12:35 PM. TECHNIQUE: 3 views. FINDINGS: Lungs/Pleura: Large left pleural effusion with dense left lower lobe opacities. No loculated component noted on the decubitus image. Minimal blunting of the right costophrenic angle. No evidence of a pneumothorax. Bronchial wall thickening is noted. Lingular and right perihilar opacities are noted. Mediastinum: Stable mediastinal silhouette. Atheromatous disease is noted in the thoracic aorta. Other: None. IMPRESSION: 1. Large nonloculated left pleural effusion with lingular and left lower lobe opacities. Differential includes atelectasis and infiltrates. 2. Possible tiny right pleural effusion. No pneumothorax is identified. 3. No cardiac enlargement. RADIA
[2019-03-09] MEDS ORDERED: MORPHINE 2 MG/ML CARPUJECT IVP STA ×2 (10:43→13:03)
[2019-03-09] MEDS ORDERED: MORPHINE 10 MG/ML VIAL IVP STA (11:58)
[2019-03-09] MEDS ORDERED: KETOROLAC 15 MG/ML VIAL IVP STA (13:03)
[2019-03-09] MEDS ORDERED: ONDANSETRON 4 MG/2 ML VIAL IVP STA (13:03)
--- NOTE | 2019-03-09 13:24 | XRAY Report ---
Reason: post thoracentesis Procedure Date: 03/09/2019 Accession Number: [id number] / [id number] Procedure: XR - Chest 1 View X-Ray CPT Code: 57883 FULL RESULT: EXAM: CHEST RADIOGRAPHY EXAM DATE: 03/09/2019 01:10 PM. CLINICAL HISTORY: Post thoracentesis. Pleural effusion COMPARISON: CHEST 3 VIEW 03/09/2019 9:02 AM. TECHNIQUE: 1 view. FINDINGS: Lungs/Pleura: Left pleural effusion has decreased in size. There is residual patchy and linear opacity at the left lung base. Negative for pneumothorax. Right lung appears grossly clear. Mediastinum: Within exam limitations, the cardiomediastinal contour is normal. Other: None. IMPRESSION: 1. Negative for pneumothorax after thoracentesis. RADIA
[2019-03-09 13:52] LABS: BF SOURCE PLEURAL
[2019-03-09 13:53] LABS: BF COLOR PINK
[2019-03-09] MEDS ORDERED: cefTRIAXone 1 GM VIAL IVP STA (14:15)
[2019-03-09] MEDS ORDERED: ONDANSETRON 4 MG/2 ML VIAL IVP PRN (15:14)
[2019-03-09] MEDS ORDERED: ALBUTEROL NEB 2.5 MG/3 ML INH PRN (15:20)
[2019-03-09 15:54] LABS: TROPONIN I < 0.04 ng/mL (<0.49)
--- NOTE | 2019-03-09 15:56 | HISTORY & PHYSICAL EXAMINATION ---
Chief Complaint - Chief Complaint Chief Complaint: SOB History of Present Illness - History of Present Illness HPI Comment/Other: Ms. Jernigna is a 64-yrs-old female with a PMH significant for COPD, cervical dysplasia, hypothyroidism, arthritis, GERD, depression, pleural effusion, who present ER for shortness of breath. pt report she felt so severe dyspnea even when she went to bathroom. she report she felt shortness of breath for about one month but gradually worsen. She came to this ER one week ago to have similar complaint. She had CTA of chest which revealed no PE, medium left pleural effusion with mild left lower lobes and lingular atelectasis, emphysema, and severe three-vessel coronary artery atherosclerosis. 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 Her dyspnea became more worsen, she came to ER today. CXR reveals today she had large nonloculated left pleural with lingular atelectasis or infiltrates. ER provide had thoracentesis for pt, in which 900ml effusion fluid was draw out. Preliminary study of effusion fluid reveals significant WBC cells, pink cloudy. pt report she stop cigarette smoking four years ago with heavy smoker over one pack per day for over 30 years. pt denies fever, chill, chest pain. she report mild cough without sputum. Lab test in ER revealed elevated WBC 13. pt is afebrile but require 3 liter of O2 to remain 94% sat in ER. pt is admitted for dyspnea. History - Past Medical History Cardiovascular: reports: Other Respiratory: reports: Shortness of breath Neuro: reports: None Endocrine/Autoimmune: reports: HyPOthyroidism GI: reports: None, Other : reports: None, Other HEENT: reports: Other Psych: reports: Depression Musculoskeletal: reports: None Derm: reports: Other MRSA Hx?: No - Past Surgical History General: reports: Cholecystectomy /GENERAL PARTNER: reports: section, Hysterectomy - POLST Patient has POLST: No Meds/Allgy - Home Medications Home Medications: Ambulatory Orders Medication Instructions Recorded Confirmed Celecoxib 200 mg PO DAILY 08/21/18 08/21/18 Fluoxetine HCl 40 mg PO DAILY 08/21/18 08/21/18 Levothyroxine [Synthroid] 75 mcg PO QDAC 08/21/18 08/21/18 Pravastatin [Pravachol] 1 tab ORAL DAILY 08/21/18 08/21/18 Cyclobenzaprine [Flexeril] 10 mg PO TID PRN #20 tablet 12/04/18 Nitrofurantoin Monohyd/M-Cryst 100 mg PO BID #10 capsule 12/04/18 [Macrobid 100 mg Capsule] Phenazopyridine HCl [Pyridium] 200 mg PO TID PRN #6 tablet 12/04/18 Albuterol Sulf [Ventolin Hfa 1 - 2 puffs INH Q4HR PRN #1 inhaler 02/21/19 Inhaler] predniSONE [Deltasone] 10 mg PO ONCE #26 tablet 02/21/19 - Allergies Allergies/Adverse Reactions: Allergies Allergy/AdvReac Type Severity Reaction Status Date / Time No Known Drug Allergies Allergy Verified 03/09/19 08:38 Review of Systems - Constitutional Constitutional: reports: Fatigue. denies: Fever, Chills, Malaise, Weakness, Poor appetite, Diaphoresis, Night sweats - Eyes Eyes: denies: Pain, Irritation, Amaurosis, Blurred vision, Spots in vision, Field loss, Vision loss, Dipolpia - Ears, Nose & Throat Ears, Nose & Throat: denies: Ear pain, Hearing loss, Hearing aids, Tinnitus, Vertigo, Nasal pain, Nasal discharge, Nosebleeds, Nasal obstruction, Nasal congestion, Postnasal drainage, Dentures, Hoarseness, Mouth lesions, Bleeding gums - Cardiovascular Cariovascular: reports: Exertional dyspnea. denies: Irregular heart rate, Palpitations, Chest pain, Edema, Lightheadedness, Syncope, Decr. exercise tolerance, Orthopnea - Respiratory Respiratory: reports: Cough, SOB with exertion, Apnea. denies: Sputum production, Wheezing, Snoring, Hemoptysis, Orthopnea, SOB at rest, Stridor, Pleuritic pain - Gastrointestinal Gastrointestinal: denies: Abdominal pain, Abdominal distention, Constipation, Diarrhea, Change in bowel habits, Rectal bleeding, Black stools, Bloody stools, Nausea, Vomiting, Bile emesis, Gerardo blood emesis, Coffee grounds emesis, Reflux/heartburn - Genitourinary Genitourinary: denies: Dysuria, Frequency, Urgency, Hematuria, Incontinence, Flank pain, Nocturia, Urethral discharge - Musculoskeletal Musculoskeletal: denies: Muscle pain, Back pain, Muscle aches, Stiffness, Limited range of motion, Muscle weakness, Gout, Joint pain - Integumentary Integumentary: denies: Rash, Pruritis, Lesions, Dryness, Lumps, Acne, Pigment changes, Nail changes - Neurological Neurological: denies: General weakness, Focal weakness, Headache, Dizziness, Numbness, Memory problems, Pre-existing deficit, Abnormal gait, Seizures, Incoordination, Slurred speech - Psychiatric Psychiatric: denies: Depression, Anxiety, Suicidal, Delusions, Hallucinations, Homicidal - Endocrine Endocrine: denies: Polyuria, Polydypsia, Polyphagia, Intolerance to cold - Hematologic/Lymphatic Hematologic/Lymphatic: denies: Anemia, Bruising, Petechiae, Blood clots, Lymphadenopathy, Bleeding tendencies Exam - Vital Signs Reviewed Vital Signs: Yes Vital Signs: Vital Signs x48h Temp Pulse Resp BP Pulse Ox 03/09/19 15:29 93 20 127/94 H 94 03/09/19 13:20 89 18 03/09/19 12:57 36.7 C 91 20 114/71 96 03/09/19 11:43 93 20 115/69 93 03/09/19 10:28 95 20 03/09/19 09:11 93 18 03/09/19 08:54 94 24 143/77 H 92 03/09/19 08:36 35.7 C L 113 H 24 143/77 H 87 L - Physical Exam General Appearance: positive: Alert, Mild distress. negative: Lethargic Eyes Bilateral: positive: Normal inspection, PERRL, No lid inflammation, Conjunctivae nml ENT: positive: ENT inspection nml, Pharynx nml, No signs of dehydration. negative: Purulent nasal drainage, Pharyngeal erythema, Oral lesions Neck: positive: Nml inspection, Thyroid nml, No JVD, Trachea midline. negative: Thyromegaly, Lymphadenopathy (R), Lymphadenopathy (L), Stiff neck, Swelling/bruising, Tracheal deviation Respiratory: positive: Chest non-tender, No respiratory distress. negative: Wheezes, Rales Cardiovascular: positive: Regular rate & rhythm, No murmur, No gallop. negative: Irregularly irregular, Extrasystoles, Tachycardia, Bradycardia, JVD present, Systolic murmur, Diastolic murmur Peripheral Pulses: positive: 2+ Abdomen: positive: Non-tender, No organomegaly, Nml bowel sounds, No distention. negative: Tenderness, Guarding, Rebound Back: positive: Nml inspection. negative: CVA tenderness (R), CVA tenderness (L) Skin: positive: Color nml, No rash, Warm, Dry. negative: Cyanosis, Diaphoresis, Pallor Extremities: positive: Non-tender, Full ROM, Nml appearance. negative: Calf tenderness, Joint swelling, Edna's sign/cords Neurologic/Psychiatric: positive: Oriented x3, Motor nml, Sensation nml, Mood/affect nml. negative: Weakness, Sensory loss, Facial droop, Slurred/abnml speech, Depressed mood/affect Sepsis Event Note (H) - Evaluation Current Stage of Sepsis: Ruled out Conclusion/Plan - Problem List (1) Increasing shortness of breath Conclusion/Plan: pt report she had significant increasing of SOB. CXR reveals large left unilateral pleural effusion. ER provider did thoracentesis and had 900ml fluid out. After the procedure, pt did feel better but pt's sat was still lower, 87% sats on room air. Preliminary study of fluid reveals high WBC, and pink very cloudy. The cause of unilateral large fluid is unclear, possible infection. CTA of chest about one week ago did not indicate PE or neoplasm. CXR reveals possible infiltration and pt has increase of WBC. Low sats after procedure can be caused by pneumonia, COPD exacerbation. supplement of O2 as needed treatment of pneumonia with antibiotics, Azithromycin, and Rocephin (2) Large pleural effusion Conclusion/Plan: ER provider did thoracentesis and had about 900ml fluid out. The culture and pathology study are pending. The cause of unilateral large pleural effusion is unclear.CTA of chest about one week ago did not indicate PE or neoplasm. CXR reveals possible infiltration and pt has increase of WBC. pain control, continue treatment possible underline cause, such as infection. (3) COPD exacerbation Conclusion/Plan: pt is long time heavy cigarette smoker. and she has hx of COPD. pt has mild cough and sats is down to 87% in room air. treat for COPD exacerbation with solu-medrol Albuterol and Duoneb, pulmocort supplement of O2 PRN (4) Pneumonia Conclusion/Plan: pt has elevated WBC, CXR indicate infiltration, and pleural effusion with large number WBC, and cloudy. pt report mild cough, and had low sats treat with Azithromycin and Rocephin supplement O2 PRN daily lab and vital monitor (5) Hypothyroidism Conclusion/Plan: stable, will check TSH and reconcile home meds (6) GERD (gastroesophageal reflux disease) Conclusion/Plan: stable, will start pepcid (7) History of cervical dysplasia Conclusion/Plan: stable, according to Dr. Serrano's documentation, pt will followup [facility] (8) Full code status Conclusion/Plan: pt request full code - Lab Results Fish Bones: 03/10/19 05:43 03/10/19 05:43 Core Measures - Anticipated LOS I expect patient to be DC'd or transferred within 96 hours.: Yes - DVT/VTE - Prophylaxis VTE/DVT Device ordered at admit?: Yes VTE/DVT Prophylaxis med ordered at admit?: Yes
[2019-03-09] MEDS: MORPHINE 2 MG/ML CARPUJECT IVP PRN ×2 (16:04→18:00)
[2019-03-09] MEDS: methylPREDNISolone SUCCINATE 40 MG/ML VIAL IVP SCH ×2 (16:04→22:35)
[2019-03-09] MEDS: ACETAMINOPHEN 325 MG TABLET PO PRN (16:05)
[2019-03-09] MEDS: AZITHROMYCIN 250 MG TABLET PO SCH (16:05)
[2019-03-09] MEDS: SODIUM CHLORIDE FLUSH 0.9% 10 ML SYRINGE IVP SCH (16:06)
[2019-03-09] MEDS: oxyCODONE 5 MG TABLET PO PRN ×2 (18:18→22:35)
[2019-03-09] MEDS: SODIUM CHLORIDE 0.9% 1,000 ML IV SCH (18:19)
[2019-03-09] MEDS: FAMOTIDINE 20 MG TABLET PO SCH (22:36)
[2019-03-10] MEDS: SODIUM CHLORIDE FLUSH 0.9% 10 ML SYRINGE IVP SCH ×4 (00:14→23:37)
[2019-03-10] MEDS: ACETAMINOPHEN 325 MG TABLET PO PRN ×2 (00:17→20:50)
[2019-03-10] MEDS: methylPREDNISolone SUCCINATE 40 MG/ML VIAL IVP SCH (05:26)
[2019-03-10 06:05] LABS: BASOPHILS % (AUTO) 0.1 %; LYMPHOCYTES # (AUTO) 0.9 10^3/uL (1.5-3.5); LYMPHOCYTES % (AUTO) 5.5 %; MEAN CORPUSCULAR HEMOGLOBIN 28.4 pg (27.0-31.0); MEAN CORPUSCULAR HGB CONC 30.8 g/dL (32.0-36.0); MEAN CORPUSCULAR VOLUME 92.2 fL (81.0-99.0); MEAN PLATELET VOLUME 10.3 fL (7.9-10.8); MONOCYTES # (AUTO) 0.7 10^3/uL (0.0-1.0); NEUTROPHILS # (AUTO) 14.7 10^3/uL (1.5-6.6); NEUTROPHILS % (AUTO) 89.9 %; PLT - PLATELET COUNT 272 10^3/uL (130-450); RED BLOOD COUNT 4.23 10^6/uL (4.20-5.40); RED CELL DISTRIBUTION WIDTH 13.2 % (12.0-15.0); WHITE BLOOD COUNT 16.4 x10^3/uL (4.8-10.8)
[2019-03-10 06:14] LABS: CALCIUM 8.6 mg/dL (8.5-10.3); CREATININE 0.6 mg/dL (0.4-1.0); MAGNESIUM 2.1 mg/dL (1.7-2.8)
[2019-03-10] MEDS: SODIUM CHLORIDE 0.9% 1,000 ML IV SCH (06:50)
[2019-03-10] MEDS: IPRATROPIUM/ALBUTEROL 3 ML NEB INH PRN (07:45)
[2019-03-10 08:50] LABS: HB2 TOTAL 12.9 g/dL; HEMOGLOBIN A1C 0.66 g/dL; HEMOGLOBIN A1C % 6.8 % (4.6-6.2)
[2019-03-10] MEDS: AZITHROMYCIN 250 MG TABLET PO SCH (08:52)
[2019-03-10] MEDS: FAMOTIDINE 20 MG TABLET PO SCH ×2 (08:52→20:53)
[2019-03-10] MEDS: POLYETHYLENE GLYCOL 3350 17 GM PACKET PO SCH (08:53)
[2019-03-10] MEDS ORDERED: cefTRIAXone 1 GM VIAL IVP SCH (09:00)
[2019-03-10] MEDS: INSULIN ASPART 300 UNIT/3 ML PEN SUBQ SCH ×4 (09:01→20:50)
[2019-03-10] MEDS: ENOXAPARIN 40 MG/0.4 ML SYRINGE SUBQ SCH (09:01)
--- NOTE | 2019-03-10 09:26 | XRAY Report ---
Reason: SOB Procedure Date: 03/10/2019 Accession Number: [id number] / [id number] Procedure: XR - Chest 1 View X-Ray CPT Code: 48527 FULL RESULT: EXAM: CHEST RADIOGRAPHY EXAM DATE: 03/10/2019 08:59 AM. CLINICAL HISTORY: SOB. COMPARISON: CHEST 1 VIEW 03/09/2019 12:55 PM CHEST 3 VIEW 03/09/2019 9:02 AM. TECHNIQUE: 1 view. FINDINGS: Lungs/Pleura: Increase parenchymal density left lower lung field. Left basilar atelectasis. No pneumothorax. Mediastinum: Within exam limitations, the cardiomediastinal contour is normal. Other: None. IMPRESSION: Hazy increased density left lower lung field may represent pleural fluid layering posteriorly. RADIA
[2019-03-10] MEDS ORDERED: IOVERSOL 320 50 ML VIAL ONE (11:55)
[2019-03-10] MEDS ORDERED: IOVERSOL 320 100 ML VIAL IVP ONE ×2 (13:53→17:04)
[2019-03-10] MEDS ORDERED: methylPREDNISolone SUCCINATE 40 MG/ML VIAL IVP SCH (14:00)
--- NOTE | 2019-03-10 14:08 | PROVIDER PROGRESS NOTE ---
Subjective - Prog Note Date Prog Note Date: 03/10/19 - Subjective Pt reports feeling: No change Subjective: pt still present some difficult to breath. Lung sound at left still present some abnormal crackles. Pt had toracentesis on yesterday and had 900 ml fluid taken from left lung. Order CXR and is pending. pt denies fever, chill, chest pain, abdominal pain, nausea, vomiting. Current Medications - Current Medications Current Medications: Active Medications Acetaminophen (Tylenol) 650 mg PO Q4HR PRN PRN Reason: Pain 1 to 4 Last Admin: 03/10/19 00:17 Dose: 650 mg Albuterol () 2.5 mg INH RTQ4H PRN PRN Reason: Wheezing Albuterol/Ipratropium (Duoneb) 3 ml INH RTQID PRN PRN Reason: Shortness of Air/Wheezing Last Admin: 03/10/19 07:45 Dose: 3 ml Azithromycin (Zithromax) 500 mg PO DAILY [facility] Last Admin: 03/10/19 08:52 Dose: 500 mg Budesonide (Pulmicort) 0.5 mg INH RTBID [facility] Enoxaparin Sodium (Lovenox) 40 mg SUBQ DAILY [facility] Last Admin: 03/10/19 09:01 Dose: 40 mg Famotidine (Pepcid) 20 mg PO BID [facility] Last Admin: 03/10/19 08:52 Dose: 20 mg Sodium Chloride (Normal Saline 0.9%) 1,000 mls @ 75 mls/hr IV .[id number] [facility] Last Admin: 03/10/19 06:50 Dose: 75 mls/hr Ceftriaxone Sodium 1 gm/ (Sodium Chloride) 100 mls @ 200 mls/hr IV DAILY [facility] Insulin Aspart (Novolog) 1 - 5 unit SUBQ 0800,1200,1700,2100 [facility]; Protocol Last Admin: 03/10/19 11:56 Dose: 1 unit Morphine Sulfate (Morphine (Carpuject)) 2 mg IVP Q2HR PRN PRN Reason: Pain 8 to 10 Last Admin: 03/09/19 18:00 Dose: 2 mg Ondansetron HCl (Zofran Inj) 4 mg IVP Q6HR PRN PRN Reason: Nausea / Vomiting Oxycodone HCl (Roxicodone) 5 mg PO Q4HR PRN PRN Reason: PAIN Last Admin: 03/09/19 22:35 Dose: 5 mg Polyethylene Glycol (Miralax) 17 gm PO DAILY [facility] Last Admin: 03/10/19 08:53 Dose: Not Given Sodium Chloride (Normal Saline Flush 0.9%) 10 ml IVP PRN PRN PRN Reason: NEEDED PER PROVIDER ORDERS Sodium Chloride (Normal Saline Flush 0.9%) 10 ml IVP 0100,0900,1700 [facility] Last Admin: 03/10/19 16:23 Dose: Not Given Celecoxib 200 mg PO DAILY 08/21/18 Fluoxetine HCl 40 mg PO DAILY 08/21/18 Levothyroxine [Synthroid] 75 mcg PO QDAC 08/21/18 Pravastatin [Pravachol] 40 mg PO DAILY 08/21/18 Acetaminophen [Tylenol] 1,300 mg PO DAILY 03/10/19 Cholecalciferol (Vitamin D3) [Vitamin D3] 2,000 units PO DAILY 03/10/19 Fluticasone Propion/Salmeterol [Wixela 250-50 Inhub] 1 puffs PO BID 03/10/19 Isosorbide Mononitrate [Isosorbide Mononitrate ER] 60 mg PO DAILY 03/10/19 Losartan [Cozaar] 25 mg PO DAILY 03/10/19 Nitroglycerin 0.4 mg SL DAILY PRN 03/10/19 Pantoprazole [Protonix] 40 mg PO DAILY 03/10/19 Objective - Vital Signs/Intake & Output Reviewed Vital Signs: Yes Vital Signs: Vital Signs x48h Temp Pulse Pulse Resp BP Pulse Ox 03/10/19 11:25 95 18 105/54 L 96 03/10/19 07:45 37.0 C 80 74 18 99/54 L 96 Intake & Output: Intake & Output 03/07/19 03/08/19 03/09/19 03/10/19 23:59 23:59 23:59 23:59 Intake Total 2160 1413.75 Output Total 600 Balance 2160 813.75 - Objective General Appearance: positive: Alert, Mild distress. negative: Lethargic Eyes Bilateral: positive: Normal inspection, PERRL, No lid inflammation, Conjunc tivae nml ENT: positive: ENT inspection nml, Pharynx nml, No signs of dehydration. negative: Purulent nasal drainage, Pharyngeal erythema, Oral lesions Neck: positive: Nml inspection, Thyroid nml, No JVD. negative: Trachea midline, Thyromegaly, Lymphadenopathy (R), Lymphadenopathy (L), Stiff neck, Swelling/bruising, Tracheal deviation Respiratory: positive: Chest non-tender, Rhonchi. negative: No respiratory distress, Breath sounds nml, Wheezes, Rales Cardiovascular: positive: Regular rate & rhythm, No murmur, No gallop. negative: Irregularly irregular, Extrasystoles, Tachycardia, Bradycardia, JVD present, Systolic murmur, Diastolic murmur Peripheral Pulses: 2+ Radial (R), 2+ Radial (L), 2+ Dorsalis pedis (R), 2+ Dorsalis pedis (L) Abdomen: positive: Non-tender, No organomegaly, Nml bowel sounds, No distention. negative: Tenderness, Guarding, Rebound Back: positive: Nml inspection. negative: CVA tenderness (R), CVA tenderness (L) Skin: positive: Color nml, No rash, Warm, Dry. negative: Cyanosis, Diaphoresis, Pallor, Skin rash Extremities: positive: Non-tender, Full ROM, Nml appearance. negative: Calf tenderness, Joint swelling, Edna's sign/cords Neurologic/Psychiatric: positive: Oriented x3, Motor nml, Sensation nml, Mood /affect nml. negative: Weakness, Sensory loss, Facial droop, Slurred/abnml speech, Depressed mood/affect - Lab Results Fish Bones: 03/10/19 05:43 03/10/19 05:43 Other Labs: Lab Results x24hrs 03/10/19 03/10/19 03/10/19 Range/Units 05:43 05:43 05:43 WBC 16.4 H (4.8-10.8) x10^3/uL RBC 4.23 (4.20-5.40) 10^6/uL Hgb 12.0 (12.0-16.0) g/dL Hct 39.0 (37.0-47.0) % MCV 92.2 (81.0-99.0) fL MCH 28.4 (27.0-31.0) pg MCHC 30.8 L (32.0-36.0) g/dL RDW 13.2 (12.0-15.0) % Plt Count 272 (130-450) 10^3/uL MPV 10.3 (7.9-10.8) fL Neut # (Auto) 14.7 H (1.5-6.6) 10^3/uL Lymph # (Auto) 0.9 L (1.5-3.5) 10^3/uL [place] # (Auto) 0.7 (0.0-1.0) 10^3/uL Eos # (Auto) 0.0 (0.0-0.7) 10^3/uL Baso # (Auto) 0.0 (0.0-0.1) 10^3/uL Absolute Nucleated RBC 0.00 x10^3/uL Nucleated RBC % 0.0 /100WBC Sodium 142 (135-145) mmol/L Potassium 4.2 (3.5-5.0) mmol/L Chloride 108 (101-111) mmol/L Carbon Dioxide 21 (21-32) mmol/L Anion Gap 13.0 (6-13) BUN 24 H (6-20) mg/dL Creatinine 0.6 (0.4-1.0) mg/dL Estimated GFR (MDRD) 101 (>89) Glucose 194 H (70-100) mg/dL Glycated Hemoglobin 6.8 H (4.6-6.2) % Estim Average Glucose 148 H (70-100) Calcium 8.6 (8.5-10.3) mg/dL Magnesium 2.1 (1.7-2.8) mg/dL Troponin I (<0.49) ng/mL Troponin I High Sens (2.3-14.8) pg/mL TSH (0.34-5.60) uIU/mL Fluid Neutrophils % % Fluid Lymphocytes % Fluid Monocytes % % Fluid Macrophages % % Fld Mesothelial Cell % % Fluid Other Cells % % 03/10/19 03/09/19 03/09/19 Range/Units 05:43 15:31 12:56 WBC (4.8-10.8) x10^3/uL RBC (4.20-5.40) 10^6/uL Hgb (12.0-16.0) g/dL Hct (37.0-47.0) % MCV (81.0-99.0) fL MCH (27.0-31.0) pg MCHC (32.0-36.0) g/dL RDW (12.0-15.0) % Plt Count (130-450) 10^3/uL MPV (7.9-10.8) fL Neut # (Auto) (1.5-6.6) 10^3/uL Lymph # (Auto) (1.5-3.5) 10^3/uL [place] # (Auto) (0.0-1.0) 10^3/uL Eos # (Auto) (0.0-0.7) 10^3/uL Baso # (Auto) (0.0-0.1) 10^3/uL Absolute Nucleated RBC x10^3/uL Nucleated RBC % /100WBC Sodium (135-145) mmol/L Potassium (3.5-5.0) mmol/L Chloride (101-111) mmol/L Carbon Dioxide (21-32) mmol/L Anion Gap (6-13) BUN (6-20) mg/dL Creatinine (0.4-1.0) mg/dL Estimated GFR (MDRD) (>89) Glucose (70-100) mg/dL Glycated Hemoglobin (4.6-6.2) % Estim Average Glucose (70-100) Calcium (8.5-10.3) mg/dL Magnesium (1.7-2.8) mg/dL Troponin I < 0.04 (<0.49) ng/mL Troponin I High Sens 5.5 (2.3-14.8) pg/mL TSH 0.75 (0.34-5.60) uIU/mL Fluid Neutrophils % 10 % Fluid Lymphocytes % 65.0 Fluid Monocytes % 10.0 % Fluid Macrophages % 12.0 % Fld Mesothelial Cell % 3.0 % Fluid Other Cells % SEE COMMENT % ABX Reporting Has patient been on IV antibiotics over the past 48 hours?: Yes Sepsis Event Note (H) - Evaluation Current Stage of Sepsis: Ruled out Assessment/Plan - Problem List (1) Increasing shortness of breath Impression: 03/10 pt still present some SOB after toracentesis to take out 900 cc fluid from left lung. Lung sound is abnormal at left. order CXR, which reveals pleural effusion again. order ECHO to R/O CHF order CT of abd/pelvis, pt has hx of vulvar cancer order CXR daily to monitor pleural effusion, if continue build up pleural effusion, and SOB, will consult surgeon for toracentesis and further management supplement of O2 PRN pt report she had significant increasing of SOB. CXR reveals large left unilater al pleural effusion. ER provider did thoracentesis and had 900ml fluid out. After the procedure, pt did feel better but pt's sat was still lower, 87% sats on room air. Preliminary study of fluid reveals high WBC, and pink very cloudy. The cause of unilateral large fluid is unclear, possible infection. CTA of chest about one week ago did not indicate PE or neoplasm. CXR reveals possible infiltration and pt has increase of WBC. Low sats after procedure can be caused by pneumonia, COPD exacerbation. supplement of O2 as needed treatment of pneumonia with antibiotics, Azithromycin, and Rocephin (2) Large pleural effusion Conclusion/Plan: 03/10 new CXR reveals appearance of more pleural effusion again, unknown etiology order ECHO, CT and abdomen/pelvis, will followup CXR daily to monitor ER provider did thoracentesis and had about 900ml fluid out. The culture and pathology study are pending. The cause of unilateral large pleural effusion is unclear.CTA of chest about one week ago did not indicate PE or neoplasm. CXR reveals possible infiltration and pt has increase of WBC. pain control, continue treatment possible underline cause, such as infection. (3) COPD exacerbation Conclusion/Plan: 03/10 continue breath treatment. it seems pt's current SOB from his increase of pleural effusion, will hold solu-medrol now pt is long time heavy cigarette smoker. and she has hx of COPD. pt has mild cough and sats is down to 87% in room air. treat for COPD exacerbation with solu-medrol Albuterol and Duoneb, pulmocort supplement of O2 PRN (4) Pneumonia Conclusion/Plan: 03/10 continue treat with antibiotics pt has elevated WBC, CXR indicate infiltration, and pleural effusion with large number WBC, and cloudy. pt report mild cough, and had low sats treat with Azithromycin and Rocephin supplement O2 PRN daily lab and vital monitor (5) Hypothyroidism Conclusion/Plan: 03/10 normal TSH, continue treatment stable, will check TSH and reconcile home meds (6) GERD (gastroesophageal reflux disease) Conclusion/Plan: stable, will start pepcid (7) History of cervical dysplasia and vulvar cancer Conclusion/Plan: 03/10 pt report she did have vulvar cancer and followup OBGYN at [facility] will CT of abdomen and pelvis, followup stable, according to Dr. Serrano's documentation, pt will followup [facility]
--- NOTE | 2019-03-10 16:55 | CT Report ---
Reason: abdominal pain, hx of vulvar cancer Procedure Date: 03/10/2019 Accession Number: [id number] / [id number] Procedure: CT - Abdomen/Pelvis W CPT Code: FULL RESULT: EXAM: CT ABDOMEN AND PELVIS EXAM DATE: 03/10/2019 03:00 PM. CLINICAL HISTORY: Abdominal pain, history of vulvar cancer. COMPARISONS: None. TECHNIQUE: Routine helical CT imaging was performed through the abdomen and pelvis. IV contrast: OPTI 320 100ML. Enteric contrast: Yes. Reconstructions: Coronal and sagittal. In accordance with CT protocol optimization, one or more of the following dose reduction techniques were utilized for this exam: automated exposure control, adjustment of mA and/or KV based on patient size, or use of iterative reconstructive technique. FINDINGS: Lung Bases: Bibasilar groundglass and a small to moderate left pleural effusion are noted. Liver: Normal. No masses. Gallbladder/Bile Ducts: Status post cholecystectomy. Spleen: Normal. Pancreas: Calcifications are noted in the uncinate region. Adrenal Glands: Normal. Kidneys: Left renal hypodensities too small to characterize. No hydronephrosis on either side. Peritoneal Cavity/Bowel: There is interstitial thickening throughout the omentum with vascular engorgement of vessels leading towards the omentum, appearance is similar to fat stranding though this is anatomically purely limited to the omental region. There is no definite discrete mass within the omentum. While there is diverticulosis with focal haziness of fat surrounding a region of the sigmoid colon as seen on image 67 series 3 and image 34 series 5 where the fat plane between the omentum and the colon is lost, this is felt to be a result of the process centered within the omentum rather than focal diverticulitis alone. There is isolated lymphadenopathy, for example, at the root of the mesenteric artery on image 26 is a 1.1 cm lymph node with loss of architecture. There is no bowel obstruction, free fluid or free air. Pelvic Organs: Bladder is moderately distended. Vasculature: Moderate atherosclerotic disease without abdominal aortic aneurysm. Bones: No aggressive osseous lesions are detected. Other: None. IMPRESSION: Left pleural effusion and basilar groundglass suggestive of pulmonary edema. Upper abdominal retroperitoneal lymphadenopathy. Abnormal appearance of the omentum, concerning for carcinomatosis until proven otherwise. [facility]
[2019-03-10] MEDS ORDERED: IOVERSOL 320 50 ML VIAL PO ONE (17:04)
[2019-03-10] MEDS: BUDESONIDE 0.5 MG/2 ML NEB INH SCH ×2 (18:50→19:54)
[2019-03-10] MEDS ORDERED: NITROGLYCERIN SL 0.4 MG TABLET SL PRN (18:59)
[2019-03-11 04:53] LABS: BASOPHILS % (AUTO) 0.2 %; HGB - HEMOGLOBIN 11.7 g/dL (12.0-16.0); LYMPHOCYTES % (AUTO) 11.3 %; MEAN CORPUSCULAR HGB CONC 30.5 g/dL (32.0-36.0); MEAN PLATELET VOLUME 10.1 fL (7.9-10.8); MONOCYTES % (AUTO) 6.7 %; NEUTROPHILS % (AUTO) 80.8 %; PLT - PLATELET COUNT 292 10^3/uL (130-450); RED BLOOD COUNT 4.03 10^6/uL (4.20-5.40); RED CELL DISTRIBUTION WIDTH 13.3 % (12.0-15.0); WHITE BLOOD COUNT 20.2 x10^3/uL (4.8-10.8)
[2019-03-11 04:58] LABS: CALCIUM 8.5 mg/dL (8.5-10.3); CREATININE 0.7 mg/dL (0.4-1.0)
[2019-03-11 04:59] LABS: ABNORMAL LYMPHS % (MANUAL) 0 %; BAND NEUTROPHILS % (MANUAL) 0 %
[2019-03-11 05:28] LABS: DIFFERENTIAL COMMENT MANUAL DIFFERENTIAL; LYMPHOCYTES # (MANUAL) 3.8 10^3/uL (1.5-3.5); LYMPHOCYTES % (MANUAL) 19 %; PLATELET ESTIMATE, MANUAL NORMAL (130-450,000) (NORMAL); RBC MORPHOLOGY (MULTIPLE) NORMAL APPEARANCE (NORMAL)
[2019-03-11] MEDS: LEVOTHYROXINE 75 MCG TABLET PO SCH (06:38)
--- NOTE | 2019-03-11 06:57 | XRAY Report ---
Reason: elevated pleural effusion Procedure Date: 03/11/2019 Accession Number: [id number] / [id number] Procedure: XR - Chest 1 View X-Ray CPT Code: 00404 FULL RESULT: EXAM: CHEST RADIOGRAPHY EXAM DATE: 03/11/2019 06:21 AM. CLINICAL HISTORY: Follow-up pleural effusion. COMPARISON: CHEST 1 VIEW 03/10/2019 8:59 AM. TECHNIQUE: 1 view. FINDINGS: Lungs/Pleura: Pulmonary vascular congestion. Possible interstitial edema. Small left pleural effusion. No pneumothorax. Mediastinum: Within exam limitations, heart is mildly enlarged. Aortic atherosclerosis. Osteopenia. Other: None. IMPRESSION: 1. Cardiomegaly and pulmonary vascular congestion with possible interstitial edema. 2. Small left pleural effusion. [facility]
[2019-03-11] MEDS ORDERED: FUROSEMIDE 20 MG/2 ML VIAL IVP SCH (07:30)
[2019-03-11] MEDS: BUDESONIDE 0.5 MG/2 ML NEB INH SCH ×2 (07:30→23:50)
[2019-03-11] MEDS: IPRATROPIUM/ALBUTEROL 3 ML NEB INH PRN (07:30)
[2019-03-11] MEDS ORDERED: predniSONE 20 MG TABLET PO SCH (08:00)
[2019-03-11] MEDS ORDERED: FUROSEMIDE 40 MG/4 ML VIAL IVP SCH (08:00)
[2019-03-11] MEDS: FLUoxetine 10 MG CAPSULE PO SCH (08:39)
[2019-03-11] MEDS: SACCHAROMYCES BOULARDII 250 MG CAPSULE PO SCH ×2 (08:40→17:14)
[2019-03-11] MEDS: AZITHROMYCIN 250 MG TABLET PO SCH (08:40)
[2019-03-11] MEDS: FAMOTIDINE 20 MG TABLET PO SCH ×2 (08:41→20:20)
[2019-03-11] MEDS: SODIUM CHLORIDE FLUSH 0.9% 10 ML SYRINGE IVP SCH ×3 (08:41→23:44)
[2019-03-11] MEDS: ENOXAPARIN 40 MG/0.4 ML SYRINGE SUBQ SCH (08:41)
[2019-03-11] MEDS: POLYETHYLENE GLYCOL 3350 17 GM PACKET PO SCH (08:45)
[2019-03-11] MEDS: INSULIN ASPART 300 UNIT/3 ML PEN SUBQ SCH ×4 (08:45→20:22)
[2019-03-11] MEDS: FUROSEMIDE 20 MG/2 ML VIAL IVP SCH ×2 (08:47→13:51)
[2019-03-11] MEDS ORDERED: FUROSEMIDE 20 MG TABLET PO SCH (09:00)
[2019-03-11] MEDS ORDERED: cefTRIAXone 1 GM in SODIUM CHLORIDE 0.9% MINIBAG 100 ML IV SCH (09:00)
--- NOTE | 2019-03-11 10:15 | PROVIDER PROGRESS NOTE ---
Subjective - Prog Note Date Prog Note Date: 03/11/19 - Subjective Pt reports feeling: No change Subjective: pt still present SOB when she is exertion or either when she went to bathroom. Lung sound still present left abnormal crackles. pt denies fever, chill, cough, chest pain, abdominal pain, nausea or vomiting. pt complain of diarrhea. pt report she has been loose stool before she was admitted but now she report diarrhea. Nurse state request pt's medical record from [facility] oncology of [facility]. Discussed with [facility] for pt to have quick oncologist referral. [facility] will call pt's PCP and [facility] for pt to have quick referral. Darlene in [facility] called pt's multiple medical providers, unfortunately pt did not followup many of her medical referral before. Now Darlene make a earliest followup appointment for pt now on 2018 to followup OBGYN oncology of [facility]. Current Medications - Current Medications Current Medications: Active Medications Acetaminophen (Tylenol) 650 mg PO Q4HR PRN PRN Reason: Pain 1 to 4 Last Admin: 03/10/19 20:50 Dose: 650 mg Albuterol () 2.5 mg INH RTQ4H PRN PRN Reason: Wheezing Last Admin: 03/10/19 19:54 Dose: 2.5 mg Albuterol/Ipratropium (Duoneb) 3 ml INH RTQID PRN PRN Reason: Shortness of Air/Wheezing Last Admin: 03/11/19 07:30 Dose: 3 ml Azithromycin (Zithromax) 500 mg PO DAILY EMIR Last Admin: 03/11/19 08:40 Dose: 500 mg Budesonide (Pulmicort) 0.5 mg INH RTBID EMIR Last Admin: 03/11/19 07:30 Dose: 0.5 mg Enoxaparin Sodium (Lovenox) 40 mg SUBQ DAILY EMIR Last Admin: 03/11/19 08:41 Dose: 40 mg Famotidine (Pepcid) 20 mg PO BID EMIR Last Admin: 03/11/19 08:41 Dose: 20 mg Fluoxetine HCl (Prozac) 40 mg PO DAILY EMIR Last Admin: 03/11/19 08:39 Dose: 40 mg Furosemide (Lasix Inj 20mg Vial) 20 mg IVP BIDDIURETIC EMIR Last Admin: 03/11/19 08:47 Dose: 20 mg Insulin Aspart (Novolog) 1 - 5 unit SUBQ 0800,1200,1700,2100 [facility]; Protocol Last Admin: 03/11/19 08:45 Dose: Not Given Levothyroxine Sodium (Synthroid) 75 mcg PO QDAC [facility] Last Admin: 03/11/19 06:38 Dose: 75 mcg Morphine Sulfate (Morphine (Carpuject)) 2 mg IVP Q2HR PRN PRN Reason: Pain 8 to 10 Last Admin: 03/09/19 18:00 Dose: 2 mg Nitroglycerin (Nitrostat) 0.4 mg SL DAILY PRN PRN Reason: symptom Ondansetron HCl (Zofran Inj) 4 mg IVP Q6HR PRN PRN Reason: Nausea / Vomiting Oxycodone HCl (Roxicodone) 5 mg PO Q4HR PRN PRN Reason: PAIN Last Admin: 03/09/19 22:35 Dose: 5 mg Polyethylene Glycol (Miralax) 17 gm PO DAILY [facility] Last Admin: 03/11/19 08:45 Dose: Not Given Saccharomyces Boulardii (Florastor) 500 mg PO BIDWM [facility] Last Admin: 03/11/19 08:40 Dose: 500 mg Sodium Chloride (Normal Saline Flush 0.9%) 10 ml IVP PRN PRN PRN Reason: NEEDED PER PROVIDER ORDERS Sodium Chloride (Normal Saline Flush 0.9%) 10 ml IVP 0100,0900,1700 [facility] Last Admin: 03/11/19 08:41 Dose: 10 ml Celecoxib 200 mg PO DAILY 08/21/18 Fluoxetine HCl 40 mg PO DAILY 08/21/18 Levothyroxine [Synthroid] 75 mcg PO QDAC 08/21/18 Pravastatin [Pravachol] 40 mg PO DAILY 08/21/18 Acetaminophen [Tylenol] 1,300 mg PO DAILY 03/10/19 Cholecalciferol (Vitamin D3) [Vitamin D3] 2,000 units PO DAILY 03/10/19 Fluticasone Propion/Salmeterol [Wixela 250-50 Inhub] 1 puffs PO BID 03/10/19 Isosorbide Mononitrate [Isosorbide Mononitrate ER] 60 mg PO DAILY 03/10/19 Losartan [Cozaar] 25 mg PO DAILY 03/10/19 Nitroglycerin 0.4 mg SL DAILY PRN 07/30/19 Pantoprazole [Protonix] 40 mg PO DAILY 03/10/19 Objective - Vital Signs/Intake & Output Reviewed Vital Signs: Yes Vital Signs: Vital Signs x48h Temp Pulse Pulse Resp BP Pulse Ox 03/11/19 07:36 36.8 C 84 20 116/59 L 93 03/11/19 07:30 85 18 03/11/19 03:29 36.7 C 72 18 102/56 L 96 Intake & Output: Intake & Output 03/08/19 03/09/19 03/10/19 03/11/19 23:59 23:59 23:59 23:59 Intake Total 2160 3498.75 100 Output Total 600 Balance 2160 2898.75 100 - Objective General Appearance: positive: Alert, Mild distress. negative: Lethargic Eyes Bilateral: positive: Normal inspection, PERRL, No lid inflammation, Conju nctivae nml ENT: positive: ENT inspection nml, Pharynx nml, No signs of dehydration. negative: Purulent nasal drainage, Pharyngeal erythema, Oral lesions Neck: positive: Nml inspection, Thyroid nml, No JVD, Trachea midline. negative: Thyromegaly, Lymphadenopathy (R), Lymphadenopathy (L), Stiff neck, Swelling/bruising, Tracheal deviation Respiratory: positive: Chest non-tender, Rhonchi. negative: Wheezes, Rales Cardiovascular: positive: Regular rate & rhythm, No murmur, No gallop. negative: Irregularly irregular, Extrasystoles, Tachycardia, Bradycardia, JVD present, Systolic murmur, Diastolic murmur Peripheral Pulses: 2+ Radial (R), 2+ Radial (L), 2+ Dorsalis pedis (R), 2+ Dorsalis pedis (L) Abdomen: positive: Non-tender, No organomegaly, Nml bowel sounds, No distention. negative: Tenderness, Guarding, Rebound Back: positive: Nml inspection. negative: CVA tenderness (R), CVA tenderness (L) Skin: positive: Color nml, No rash, Warm, Dry. negative: Cyanosis, Diaphoresis, Pallor, Skin rash Extremities: positive: Non-tender, Full ROM, Nml appearance. negative: Calf tenderness, Joint swelling, Edna's sign/cords Neurologic/Psychiatric: positive: Oriented x3, Motor nml, Sensation nml, Mood/affect nml. negative: Weakness, Sensory loss, Facial droop, Slurred/abnml speech, Depressed mood/affect - Lab Results Fish Bones: 03/11/19 04:45 03/11/19 04:45 Other Labs: Lab Results x24hrs 03/11/19 03/11/19 03/11/19 Range/Units 07:46 04:45 04:45 WBC 20.2 H (4.8-10.8) x10^3/uL RBC 4.03 L (4.20-5.40) 10^6/uL Hgb 11.7 L (12.0-16.0) g/dL Hct 38.3 (37.0-47.0) % MCV 95.0 (81.0-99.0) fL MCH 29.0 (27.0-31.0) pg MCHC 30.5 L (32.0-36.0) g/dL RDW 13.3 (12.0-15.0) % Plt Count 292 (130-450) 10^3/uL MPV 10.1 (7.9-10.8) fL Neut # (Auto) Not Reportable Lymph # (Auto) Not Reportable [place] # (Auto) Not Reportable Eos # (Auto) Not Reportable Baso # (Auto) Not Reportable Absolute Nucleated RBC Not Reportable Total Counted 100 Band Neuts % (Manual) 0 (0 - 10) % Abnorm Lymph % (Manual) 0 % Nucleated RBC % Not Reportable Neutrophils # (Manual) 14.3 H (1.5-6.6) 10^3/uL Lymphocytes # (Manual) 3.8 H (1.5-3.5) 10^3/uL Monocytes # (Manual) 2.0 H (0.0-1.0) 10^3/uL Eosinophils # (Manual) 0.0 (0-0.7) 10^3/uL Basophils # (Manual) 0.0 (0-0.1) 10^3/uL Differential Comment MANUAL DIFFERENTIAL Platelet Estimate NORMAL (130-450,000) (NORMAL) RBC Morph Micro Appear NORMAL APPEARANCE (NORMAL) Sodium 144 (135-145) mmol/L Potassium 4.3 (3.5-5.0) mmol/L Chloride 109 (101-111) mmol/L Carbon Dioxide 25 (21-32) mmol/L Anion Gap 10.0 (6-13) BUN 22 H (6-20) mg/dL Creatinine 0.7 (0.4-1.0) mg/dL Estimated GFR (MDRD) 85 L (>89) Glucose 116 H (70-100) mg/dL Calcium 8.5 (8.5-10.3) mg/dL B-Natriuretic Peptide 365 H (5-100) pg/mL ABX Reporting Has patient been on IV antibiotics over the past 48 hours?: Yes Sepsis Event Note (H) - Evaluation Current Stage of Sepsis: Ruled out Assessment/Plan - Problem List (1) Increasing shortness of breath Impression: 03/11 pt still present SOB when she is on exertion even she come to bathroom. pt has 93% sat on 2 liter of O2. pt has not taken O2 at home. CXR reveals cardiomegaly, pulmonary vascular congestion with possible interstitial edema, and small left pleural effusion. For the etiology for pt have large pleural effusion, ECHO yesterday reveals normal EF 60-65%, no regional wall motion abnormality, right ventricle is normal in size and function, mildly abnormal right heart pressure, RVSP at rest is 44 mmHG. It seems it is not heart failure to cause pt has unilateral large pleural effusion. Contrast CT of abdomen and pelvis reveals left pleural effusion and basilar daniel undglass suggestive of pulmonary edema, upper abdominal retroperitoneal lymphadenopathy, abnormal appearance of the omentum, concerning for carcinomatosis until proven otherwise. order Lasix for pulmonary edema, it seems pt's BP can tolerate the treatment continue breath treatment continue supplement of O2 as needed advise pt followup oncologist as out-pt, now try to help make early referral 03/10 pt still present some SOB after toracentesis to take out 900 cc fluid from left lung. Lung sound is abnormal at left. order CXR, which reveals pleural effusion again. order ECHO to R/O CHF order CT of abd/pelvis, pt has hx of vulvar cancer order CXR daily to monitor pleural effusion, if continue build up pleural effusion, and SOB, will consult surgeon for toracentesis and further management supplement of O2 PRN pt report she had significant increasing of SOB. CXR reveals large left unilateral pleural effusion. ER provider did thoracentesis and had 900ml fluid out. After the procedure, pt did feel better but pt's sat was still lower, 87% sats on room air. Preliminary study of fluid reveals high WBC, and pink very cloudy. The cause of unilateral large fluid is unclear, possible infection. CTA of chest about one week ago did not indicate PE or neoplasm. CXR reveals possible infiltration and pt has increase of WBC. Low sats after procedure can be caused by pneumonia, COPD exacerbation. supplement of O2 as needed treatment of pneumonia with antibiotics, Azithromycin, and Rocephin (2) pleural effusion Conclusion/Plan: 03/11 new CXR reveals pt has small pleural effusion again at the left lung, will consult with surgeon to dov if pt continue to build you effusion. continue supplement O2 as needed. 03/10 new CXR reveals appearance of more pleural effusion again, unknown etiology order ECHO, CT and abdomen/pelvis, will followup CXR daily to monitor ER provider did thoracentesis and had about 900ml fluid out. The culture and pathology study are pending. The cause of unilateral large pleural effusion is unclear.CTA of chest about one week ago did not indicate PE or neoplasm. CXR reveals possible infiltration and pt has increase of WBC. pain control, continue treatment possible underline cause, such as infection. (3) COPD Conclusion/Plan: 03/11 pt has 93% sats on 2 liter of O2, continue pulmorcort, albuterol, Duoneb PRN treatment supplement of O2 03/10 continue breath treatment. it seems pt's current SOB from his increase of pleural effusion, will hold solu-medrol now pt is long time heavy cigarette smoker. and she has hx of COPD. pt has mild cough and sats is down to 87% in room air. treat for COPD exacerbation with solu-medrol Albuterol and Duoneb, pulmocort supplement of O2 PRN (4) lymphocytosis Conclusion/Plan: 03/11 pt present elevated WBC 13 at the admission with hypoxia and SOB, but also pt did not have cough, no fever/chill, CT of abdomen and CXR did not clearly show pneumonia continue Azithyomycin for community PNA/bronchitis, hold Rocephin now, also pt developed diarrhea now 03/10 continue treat with antibiotics pt has elevated WBC, CXR indicate infiltration, and pleural effusion with large number WBC, and cloudy. pt report mild cough, and had low sats treat with Azithromycin and Rocephin supplement O2 PRN daily lab and vital monitor (5) Hypothyroidism Conclusion/Plan: 03/10 normal TSH, continue treatment stable, will check TSH and reconcile home meds (6) GERD (gastroesophageal reflux disease) Conclusion/Plan: stable, will start pepcid (7) History of cervical dysplasia and vulvar cancer Conclusion/Plan: 03/10 pt report she did have vulvar cancer and followup OBGYN at [facility] will CT of abdomen and pelvis, followup (8)carcinomatosis in CT of abdomen in CT of abdomen and pelvis reveals carcinomatosis and lymphadenopathy, unilateral large pleural effusion, consideration of advanced cancer. discussed with pt about the image studies, answer all her questions. new oncologist consult/referral with [facility] for pt. pt has a new appointment on 03/18/19 at [place] [facility] clinic (9) diarrhea pt report new diarrhea, pt had antibiotics in hospital, check C.Diff order Probiotics consideration of IVF of NS if pt clinic present dehydration.
[2019-03-11] MEDS: ACETAMINOPHEN 325 MG TABLET PO PRN ×2 (11:42→22:46)
[2019-03-11] MEDS: SODIUM CHLORIDE FLUSH 0.9% 10 ML SYRINGE IVP PRN (13:51)
[2019-03-11] MEDS ORDERED: cefTRIAXone 1 GM VIAL IVP SCH (14:14)
[2019-03-11] MEDS: cefTRIAXone 1 GM in SODIUM CHLORIDE 0.9% MINIBAG 100 ML IV SCH (15:00)
[2019-03-11] MEDS ORDERED: SODIUM CHLORIDE FLUSH 0.9% 10 ML SYRINGE ONE (15:05)
[2019-03-12 05:21] LABS: BASOPHILS % (AUTO) 0.3 %; EOSINOPHILS # (AUTO) 0.1 10^3/uL (0.0-0.7); HGB - HEMOGLOBIN 12.3 g/dL (12.0-16.0); LYMPHOCYTES # (AUTO) 2.4 10^3/uL (1.5-3.5); LYMPHOCYTES % (AUTO) 22.3 %; MEAN CORPUSCULAR HEMOGLOBIN 28.8 pg (27.0-31.0); MEAN CORPUSCULAR HGB CONC 31.4 g/dL (32.0-36.0); MEAN CORPUSCULAR VOLUME 91.8 fL (81.0-99.0); MEAN PLATELET VOLUME 10.3 fL (7.9-10.8); MONOCYTES % (AUTO) 9.2 %; NEUTROPHILS # (AUTO) 7.1 10^3/uL (1.5-6.6); NEUTROPHILS % (AUTO) 66.7 %; PLT - PLATELET COUNT 271 10^3/uL (130-450); RED BLOOD COUNT 4.27 10^6/uL (4.20-5.40); RED CELL DISTRIBUTION WIDTH 13.2 % (12.0-15.0); WHITE BLOOD COUNT 10.6 x10^3/uL (4.8-10.8)
[2019-03-12 05:25] LABS: CALCIUM 8.8 mg/dL (8.5-10.3); CREATININE 0.7 mg/dL (0.4-1.0)
[2019-03-12] MEDS: FUROSEMIDE 20 MG/2 ML VIAL IVP SCH ×2 (06:08→13:20)
[2019-03-12] MEDS: LEVOTHYROXINE 75 MCG TABLET PO SCH (06:08)
[2019-03-12] MEDS: SODIUM CHLORIDE FLUSH 0.9% 10 ML SYRINGE IVP PRN ×2 (06:09→13:21)
[2019-03-12] MEDS: AZITHROMYCIN 250 MG TABLET PO SCH (07:46)
[2019-03-12] MEDS: SACCHAROMYCES BOULARDII 250 MG CAPSULE PO SCH ×2 (07:46→17:03)
[2019-03-12] MEDS: FLUoxetine 10 MG CAPSULE PO SCH (07:46)
[2019-03-12] MEDS: POLYETHYLENE GLYCOL 3350 17 GM PACKET PO SCH (07:47)
[2019-03-12] MEDS: FAMOTIDINE 20 MG TABLET PO SCH (07:47)
[2019-03-12] MEDS: INSULIN ASPART 300 UNIT/3 ML PEN SUBQ SCH ×4 (07:47→21:45)
[2019-03-12] MEDS: ENOXAPARIN 40 MG/0.4 ML SYRINGE SUBQ SCH (07:48)
[2019-03-12] MEDS: SODIUM CHLORIDE FLUSH 0.9% 10 ML SYRINGE IVP SCH ×2 (07:48→17:01)
[2019-03-12] MEDS: IPRATROPIUM/ALBUTEROL 3 ML NEB INH PRN (08:13)
[2019-03-12] MEDS: BUDESONIDE 0.5 MG/2 ML NEB INH SCH ×2 (08:13→21:22)
--- NOTE | 2019-03-12 11:36 | XRAY Report ---
Reason: left pleural effusion Procedure Date: 03/12/2019 Accession Number: [id number] / [id number] Procedure: XR - Chest 1 View X-Ray CPT Code: 38200 FULL RESULT: EXAM: CHEST RADIOGRAPHY EXAM DATE: 03/12/2019 10:34 AM. CLINICAL HISTORY: Left pleural effusion. COMPARISON: CHEST 1 VIEW 03/11/2019 6:03 AM. TECHNIQUE: 1 view. FINDINGS: Lungs/Pleura: Bibasilar pulmonary opacities appear similar to prior. No pneumothorax. Left pleural effusion is increasing. No meaningful right pleural effusion. Mediastinum: Within exam limitations, the cardiomediastinal contour is not meaningfully changed. Other: None. IMPRESSION: Increasing left pleural effusion. RADIA
[2019-03-12] MEDS: cefTRIAXone 1 GM in SODIUM CHLORIDE 0.9% MINIBAG 100 ML IV SCH (13:20)
[2019-03-12] MEDS: oxyCODONE 5 MG TABLET PO PRN (13:50)
[2019-03-12] MEDS: ACETAMINOPHEN 325 MG TABLET PO PRN (17:00)
--- NOTE | 2019-03-12 17:50 | DISCHARGE SUMMARY ---
Discharge Summary Admit Date: 03/09/19 Discharge Date: 03/12/19 Discharging Provider: JACQUELINE Lewis Primary Care Provider: Whitney Quintana Code Status: Attempt Resuscitation Condition at Discharge: Stable Discharge Disposition: 02 Transfer Acute Care Hosp Discharge Facility Name: [facility] - DIAGNOSES Admission Diagnoses: Increasing shortness of breath Large pleural effusion COPD exacerbation Pneumonia Hypothyroidism GERD (gastroesophageal reflux disease) History of cervical dysplasia Discharge Diagnoses with Status of Each Condition: Acute respiratory fialure with hypoxia- new on this admission, continues on oxygen, no prior home oxygen History of cancer of vulva- up to 20 years ago, with recent recurrent lesion Large pleural effusion- recurrent, last drained on 03/09/2019, cytology pending COPD exacerbation- chronic, now requiring oxygen, ground glass opacities on imaging Pneumonia- new on this admission, elevated WBC count, cough, today with chills, sweats, infiltrates on imaging Hypothyroidism- chronic, stable GERD (gastroesophageal reflux disease)- chronic, stable History of cervical dysplasia- chronic, stable Carcinomatosis- noted on imaging only, needs further work up Diarrhea- improved, continues on probiotic, c-diff negative - HPI History of Present Illness: Natalia Jernigan is a 64-yearold female with a past medical history of COPD, cervical dysplasia, vulvar cancer, tobacco dependence in remission, hypothyroidism, arthritis, GERD, depression, pleural effusion. She presented to the ED with primary complaint of progressive shortness of breath, which has been noted even when attempting to ambulate to the bathroom. The SOB first started about one month ago, but it has gradually worsened. She was last seen in our ED within the past week for the same complaint and was discharged home after a CTA of the chest showed no pulmonary emboli, medium left pleural effusion with mild left lower lobes, lingular atelectasis, emphysema, and severe three-vessel coronary artery atherosclerosis. The patient reported that she has had a remote cardiac cath, which did not require any interventions. A chest x-ray showed a large non-loculated left pleural with lingular atelectasis verses infiltrates. A thoracentesis was performed bedside while in the ED shortly after arrival in which 900 mL of pink exudate was removed and cytology is still pending. Preliminary studies of the pleural fluid showed significant WBC cells, +p roteins, and appeared pink & cloudy. Initial exam of the admitting provider; the patient denied fevers, chills, chest pain, headaches, abdominal pain, nausea, vomiting, or a rash. The patient admitted to a non-productive cough which started about the same time of her shortness of breath. Lab tests in ER showed an elevated WBC 13, and no other lab abnormalities. The patient was afebrile, but did require 3 liters of O2 to maintain an oxygen saturation of 94% and does not wear oxygen at home. She was admitted for further inpatient care and monitoring. - HOSPITAL COURSE Hospital Course: Today (03/12/2019), the patient still requires oxygen, and does not have home oxygen. A chest x-ray today showed a worsening left pleural effusion as compared to a chest x-ray from yesterday. An echocardiogram showed a normal EF 60-65%, no regional wall motion abnormality, right ventricle is normal in size and function, mildly abnormal right heart pressures with an RVSP at rest of [address] of abdomen and pelvis showed a left pleural effusion and basil ar ground glass suggestive of pulmonary edema, upper abdominal retroperitoneal lymphadenopathy, abnormal appearance of the omentum, concerning for carcinomatosis until proven otherwise. Post-left thoracentesis (in which 900 mL was removed from the left lung on 03/09), the patient's symptoms improved and she required less oxygen, although remained hypoxic with an oxygen saturation of 87% on room air. Preliminary studies of pleural fluid showed high WBC, + proteins, pink very cloudy sample. The cause of unilateral large fluid is unclear, although pleural fluid had high exudate count of 1300 u/L found in original specimen. CTA of chest on 02/21/2019 was negative for pulmonary emboli or neoplasm. The patient was started on IV antibiotics Azithromycin and Rocephin, based on symptoms, cough, and infiltration on imaging, increased WBC count, decreased oxygen saturation worrisome for pneumonia, COPD exacerbation. The patient has a history of cervical dysplasia and vulvar cancer, which first appeared ~ 20 years ago. She is status post hysterectomy and most recently had an external lesion in which a biopsy was taken by [facility] with unknown results. During this admission an abdomen/pelvic CT was performed and showed; carcinomatosis and lymphadenopathy, unilateral large pleural effusion, consideration of advanced cancer. These findings were discussed with the alyssa resendiz and she has had a outpatient clinic appointment set up for on 03/18/19 at [place] onc[facility] clinic. The patient reported new diarrhea, which may have been a result of her antibiotics while in the hospital. A stool sample was negative for C.Diff. She is now on probiotics. Disposition: The patient was transferred to a higher level of care via [place] providers to undergo further oncology work up with a more expidited - ALLERGIES Allergies/Adverse Reactions: Allergies Allergy/AdvReac Type Severity Reaction Status Date / Time No Known Drug Allergies Allergy Verified 03/09/19 08:38 - MEDICATIONS Home Medications: Ambulatory Orders Medication Instructions Recorded Confirmed Celecoxib 200 mg PO DAILY 08/21/18 03/10/19 Fluoxetine HCl 40 mg PO DAILY 08/21/18 03/10/19 Levothyroxine [Synthroid] 75 mcg PO QDAC 08/21/18 03/10/19 Pravastatin [Pravachol] 40 mg PO DAILY 08/21/18 03/10/19 Albuterol Sulf [Ventolin Hfa 1 - 2 puffs INH Q4HR PRN #1 inhaler 02/21/19 03/10/19 Inhaler] Acetaminophen [Tylenol] 1,300 mg PO DAILY 03/10/19 03/10/19 Cholecalciferol (Vitamin D3) 2,000 units PO DAILY 03/10/19 03/10/19 [Vitamin D3] Fluticasone Propion/Salmeterol 1 puffs PO BID 03/10/19 03/10/19 [Wixela 250-50 Inhub] Isosorbide Mononitrate [Isosorbide 60 mg PO DAILY 03/10/19 03/10/19 Mononitrate ER] Losartan [Cozaar] 25 mg PO DAILY 03/10/19 03/10/19 Nitroglycerin 0.4 mg SL DAILY PRN 03/10/19 03/10/19 Pantoprazole [Protonix] 40 mg PO DAILY 03/10/19 03/10/19 - PHYSICAL EXAM AT DISCHARGE General Appearance: positive: Alert, Moderate distress, Anxious Eyes Bilateral: positive: PERRL ENT: positive: Pharynx nml, No signs of dehydration Neck: positive: Thyroid nml, No JVD, Trachea midline Respiratory: positive: Chest non-tender, Rhonchi, Other (absent in left low base, scattered crackles throughout) Cardiovascular: positive: Regular rate & rhythm, No gallop, Tachycardia, Systolic murmur Peripheral Pulses: positive: 1+ Abdomen: positive: Non-tender, Guarding, Hepatomegaly, Abnml bowel sounds Back: positive: Nml inspection Skin: positive: No rash, Warm, Dry Extremities: positive: Non-tender, Full ROM, No pedal edema Neurologic/Psychiatric: positive: Oriented x3, CN's nml (2-12), Motor nml, Sensation nml, Weakness, Sensory loss, Depressed mood/affect Reflexes: Bicep (R): 3+, Bicep (L): 3+ - LABS Result Diagrams: 03/12/19 04:50 03/12/19 04:50 - DIAGNOSTIC IMAGING Diagnostic Imaging Results: Final report reviewed Diagnostic Imaging Results Comments: EXAM: CHEST RADIOGRAPHY EXAM DATE: 03/09/2019 10:06 AM IMPRESSION: 1. Large nonloculated left pleural effusion with lingular and left lower lobe opacities. Differential includes atelectasis and infiltrates. 2. Possible tiny right pleural effusion. No pneumothorax is identified. 3. No cardiac enlargement. EXAM: CHEST RADIOGRAPHY EXAM DATE: 03/09/2019 01:10 PM IMPRESSION: 1. Negative for pneumothorax after thoracentesis. EXAM: CHEST RADIOGRAPHY EXAM DATE: 03/10/2019 08:59 AM IMPRESSION: Hazy increased density left lower lung field may represent pleural fluid layering posteriorly. EXAM: CT ABDOMEN AND PELVIS EXAM DATE: 03/10/2019 03:00 PM FINDINGS: Lung Bases: Bibasilar groundglass and a small to moderate left pleural effusion are noted. Liver: Normal. No masses. Gallbladder/Bile Ducts: Status post cholecystectomy. Spleen: Normal. Pancreas: Calcifications are noted in the uncinate region. Adrenal Glands: Normal. Kidneys: Left renal hypodensities too small to characterize. No hydronephrosis on either side. Peritoneal Cavity/Bowel: There is interstitial thickening throughout the omentum with vascular engorgement of vessels leading towards the omentum, appearance is similar to fat stranding though this is anatomically purely limited to the omental region. There is no definite discrete mass within the omentum. While there is diverticulosis with focal haziness of fat surrounding a region of the sigmoid colon as seen on image 67 series 3 and image 34 series 5 where the fat p josé miguel between the omentum and the colon is lost, this is felt to be a result of the process centered within the omentum rather than focal diverticulitis alone. There is isolated lymphadenopathy, for example, at the root of the mesenteric artery on image 26 is a 1.1 cm lymph node with loss of architecture. There is no bowel obstruction, free fluid or free air. Pelvic Organs: Bladder is moderately distended. Vasculature: Moderate atherosclerotic disease without abdominal aortic aneurysm. Bones: No aggressive osseous lesions are detected. Other: None. IMPRESSION: Left pleural effusion and basilar groundglass suggestive of pulmonary edema. Upper abdominal retroperitoneal lymphadenopathy. Abnormal appearance of the omentum, concerning for carcinomatosis until proven otherwise. EXAM: CHEST RADIOGRAPHY EXAM DATE: 03/11/2019 06:21 AM IMPRESSION: 1. Cardiomegaly and pulmonary vascular congestion with possible interstitial edema. 2. Small left pleural effusion. EXAM: CHEST RADIOGRAPHY EXAM DATE: 03/12/2019 10:34 AM IMPRESSION: Increasing left pleural effusion. - SEPSIS Current Stage of Sepsis: Ruled out - TIME SPENT Time Spent in Discharge (Minutes): 60
--- NOTE | 2019-03-12 18:54 | Discharge Plan ---
Discharge Plan Problem Reviewed?: Yes Disposition: 02 Transfer Acute Care Hosp Condition: Stable No Smoking: If you smoke, Please STOP! Call for help. Follow-up with: Whitney Quintana ARNP, [facility] [Primary Care Provider] -
[2019-03-12 21:19] VITALS: BP 111/63
[2019-03-13] MEDS ORDERED: LOSARTAN 50 MG TABLET PO SCH (09:00)
[2019-03-13] MEDS ORDERED: PANTOPRAZOLE 40 MG TABLET PO SCH (09:00)
[2019-03-13] MEDS ORDERED: PRAVASTATIN 40 MG TABLET PO SCH (09:00)
[2019-03-13] MEDS ORDERED: ISOSORBIDE MONONITRATE ER 30 MG TABLET PO SCH (09:00)
[2019-03-13] MEDS ORDERED: ISOSORBIDE MONONITRATE 60 MG PO SCH (09:00)
[2019-03-19 12:01] LABS: CC,BF RBC 11000 /mm^3
== END 2019-03-12 22:00 | disposition short-term general hospital (02) ==
LOC: ED 08:29 → MS2 15:14
PROVIDERS: ADMIT Nurse Practitioner Gerontology; ATTEND Nurse Practitioner
PROC: 0W9B3ZZ Drainage of Left Pleural Cavity, Percutaneous Approach (ICD-10-PCS; principal; 2019-03-09)
DX: J96.01 Acute respiratory failure with hypoxia (principal); C51.9 Malignant neoplasm of vulva, unspecified; J91.0 Malignant pleural effusion; C78.6 Secondary malignant neoplasm of retroperitoneum and peritoneum; J18.9 Pneumonia, unspecified organism; J43.9 Emphysema, unspecified; J45.901 Unspecified asthma with (acute) exacerbation; R19.7 Diarrhea, unspecified; R59.0 Localized enlarged lymph nodes; I25.10 Atherosclerotic heart disease of native coronary artery without angina pectoris; E03.9 Hypothyroidism, unspecified; K21.9 Gastro-esophageal reflux disease without esophagitis; F32.9 Major depressive disorder, single episode, unspecified; F17.201 Nicotine dependence, unspecified, in remission; Z90.710 Acquired absence of both cervix and uterus; Z79.899 Other long term (current) drug therapy
CPT/HCPCS: 32554; 36415; 71045; 71047; 74177; 80048; 80053; 81599; 83036; 83690; 83735; 83880; 84443; 84484; 85025; 87040; 87070; 87205; 87493; 89051; 93306; 94640; 96361; 96365; 96366; 96372; 96375; 96376; 99284; 99285; A9270; G0378; J1650; J7626; Q9967; 83615; 84157

== ENCOUNTER 2019-05-18 06:28 | Outpatient (CLI) | payer OTHER ==
[2019-05-18] MEDS ORDERED: IOVERSOL 320 100 ML VIAL IVP ONE ×2 (06:54→08:45)
[2019-05-18] MEDS ORDERED: IOVERSOL 320 50 ML VIAL ONE (06:54)
[2019-05-18] MEDS ORDERED: IOVERSOL 320 50 ML VIAL PO ONE (08:45)
--- NOTE | 2019-05-18 10:23 | CT Report ---
Reason: OVARIAN CANCER Procedure Date: 05/18/2019 Accession Number: [id number] / [id number] Procedure: CT - Abdomen/Pelvis W CPT Code: FULL RESULT: EXAM: CT ABDOMEN AND PELVIS WITH IV CONTRAST EXAM DATE: 05/18/2019 08:23 AM. CLINICAL HISTORY: Ovarian cancer. COMPARISONS: ABDOMEN/PELVIS W/ 03/10/2019 2:51 PM. TECHNIQUE: Routine helical CT imaging was performed through the abdomen and pelvis. IV contrast: OPTI 320, 100 mL. Enteric contrast: No. Reconstructions: Coronal and sagittal. In accordance with CT protocol optimization, one or more of the following dose reduction techniques were utilized for this exam: automated exposure control, adjustment of mA and/or KV based on patient size, or use of iterative reconstructive technique. FINDINGS: Lung Bases: Unremarkable. Liver: Normal. No masses. Gallbladder/Bile Ducts: Gallbladder is surgically absent. There is no biliary ductal dilatation. Spleen: Normal. Pancreas: Stable punctate calcifications of the posterior uncinate process, otherwise unremarkable. Adrenal Glands: Normal. Kidneys: There are small bilateral cortical hypodensities too small to characterize but possibly representing small cysts. There is a stable 8 mm oval probable cyst of the lower pole left kidney too small to characterize by density measurement. No stone or hydronephrosis. No solid or enhancing masses. Peritoneal Cavity/Bowel: There has been significant interval improvement in omental thickening noted on the prior exam. Previous left periaortic enlarged lymph node is diminished/returned to normal size, now measuring 7 mm in short axis. No significant free fluid. No free air. Mild colonic diverticulosis without CT evidence of diverticulitis. The appendix is well visualized and normal. Pelvic Organs: Normal. The bladder and visualized pelvic organs are within normal limits. Vasculature: No aneurysms or other significant abnormality. Bones: No significant abnormality. Other: None. IMPRESSION: Interval significant improvement in omental thickening. RADIA
--- NOTE | 2019-05-20 10:24 | CT Report ---
Reason: OVARIAN CANCER Procedure Date: 05/18/2019 Accession Number: [id number] / [id number] Procedure: CT - CHEST W CPT Code: FULL RESULT: EXAM: CT CHEST EXAM DATE: 05/18/2019 08:23 AM. CLINICAL HISTORY: Ovarian cancer. COMPARISONS: CHEST ANGIO 02/21/2019 12:35 PM. TECHNIQUE: Routine helical CT imaging was performed through the chest. IV contrast: 100 cc of Optiray 320 contrast.. Reconstructions: Coronal and sagittal. In accordance with CT protocol optimization, one or more of the following dose reduction techniques were utilized for this exam: automated exposure control, adjustment of mA and/or KV based on patient size, or use of iterative reconstructive technique. FINDINGS: Lungs/Pleura: No nodules, bronchial thickening, consolidation, or edema. Pulmonary vasculature is normal. No pericardial or pleural effusion. No pneumothorax. Moderate geographic peripheral panacinar emphysema of the upper lobes. Small amounts of the posterior paraseptal emphysema and scattered areas of centrilobular emphysema. Mediastinum: Normal. No adenopathy or masses. The heart and great vessels are normal. Significant three-vessel coronary artery calcium. Bones: Unremarkable. Visualized Abdomen: Unremarkable. Other: None. IMPRESSION: 1. Moderate emphysema. 2. No evidence of metastatic disease within the chest. 3. Significant three-vessel coronary artery calcium. RADIA
== END 2019-05-18 06:29 | disposition home or self-care (01) ==
LOC: DI 06:28
PROVIDERS: ATTEND Internal Medicine Hematology & Oncology
DX: J43.9 Emphysema, unspecified (principal); I25.10 Atherosclerotic heart disease of native coronary artery without angina pectoris; C56.9 Malignant neoplasm of unspecified ovary
CPT/HCPCS: 71260; 74177; Q9967

== ENCOUNTER 2019-07-11 13:22 | Emergency (ER) | payer OTHER ==
[2019-07-11] MEDS ORDERED: ONDANSETRON 4 MG/2 ML VIAL IVP STA (13:40)
[2019-07-11] MEDS ORDERED: MORPHINE 10 MG/ML VIAL IVP STA ×2 (13:40→18:28)
[2019-07-11] MEDS ORDERED: LACTATED RINGERS 1,000 ML IV STA (13:41)
[2019-07-11] MEDS ORDERED: IOVERSOL 320 100 ML VIAL IVP ONE ×2 (13:43→15:04)
--- NOTE | 2019-07-11 13:43 | ED Physician Documentation ---
History of Present Illness - Stated complaint Stated Complaint: L SIDE PX - Chief complaint Chief Complaint: Abd Pain - Additonal information Additional information: This is a 64-year-old female with a history of COPD, hypothyroidism, ovarian cancer with metastasis, status post oophorectomy, as well as peritoneal debulking ~1 month ago (06/09 at [facility]), on active chemotherapy with her last infusion 4 days ago, who presents with left lower quadrant abdominal pain. This is been ongoing for on 24 hours and has worsened. She has also felt constipated and like her abdomen is slightly distended over the last 48 hours. She did have a small bowel movement last night, none since then. She has had multiple episodes of non-bloody emesis. She denies dysuria. She noticed she had a fever at home today of 101 night, she has no sore throat, runny nose or cough. Review of Systems Constitutional: reports: Fever Nose: denies: Rhinorrhea / runny nose Throat: denies: Oral lesions / sores Cardiac: denies: Chest pain / pressure Respiratory: denies: Dyspnea GI: reports: Abdominal Pain, Nausea, Vomiting : denies: Dysuria Skin: denies: Rash Neurologic: reports: Generalized weakness Immunocompromised: reports: Immunocompromised, Chemotherapy PD PAST MEDICAL HISTORY - Past Medical History Cardiovascular: Other Respiratory: Shortness of breath Neuro: None Endocrine/Autoimmune: HyPOthyroidism GI: None, Other : None, Other HEENT: Other Psych: Depression Musculoskeletal: None Derm: Other - Past Surgical History Past Surgical History: Yes General: Cholecystectomy /[employer]: section, Hysterectomy Cardiovascular: Cardiac catheterization - Present Medications Home Medications: Ambulatory Orders Medication Instructions Recorded Confirmed Celecoxib 200 mg PO DAILY 08/21/18 06/23/19 Fluoxetine HCl 40 mg PO DAILY 08/21/18 06/23/19 Levothyroxine [Synthroid] 75 mcg PO QDAC 08/21/18 06/23/19 Pravastatin [Pravachol] 40 mg PO DAILY 08/21/18 06/23/19 Albuterol Sulf [Ventolin Hfa 1 - 2 puffs INH Q4HR PRN #1 inhaler 02/21/19 06/23/19 Inhaler] Acetaminophen [Tylenol] 1,300 mg PO DAILY 03/10/19 06/23/19 Cholecalciferol (Vitamin D3) 2,000 units PO DAILY 03/10/19 06/23/19 [Vitamin D3] Fluticasone Propion/Salmeterol 1 puffs PO BID 03/10/19 06/23/19 [Wixela 250-50 Inhub] Losartan [Cozaar] 25 mg PO DAILY 03/10/19 06/23/19 Nitroglycerin 0.4 mg SL DAILY PRN 03/10/19 06/23/19 Pantoprazole [Protonix] 40 mg PO DAILY 03/10/19 06/23/19 LORazepam [Lorazepam] 0.5 mg ORAL Q6HR PRN 03/31/19 06/23/19 - Allergies Allergies/Adverse Reactions: Allergies Allergy/AdvReac Type Severity Reaction Status Date / Time No Known Drug Allergies Allergy Verified 06/23/19 10:07 - Social History Does the pt smoke?: Yes Smoking Status: Former smoker Does the pt drink ETOH?: Yes Does the pt have substance abuse?: No - POLST Patient has POLST: No PD ED PE NORMAL - Vitals Vital signs reviewed: Yes - General General: Alert and oriented X 3, No acute distress - HEENT HEENT: Atraumatic, PERRL - Cardiac Cardiac: Other (Tachycardic, regular rhythm, slight systolic ejection murmur.) - Respiratory Respiratory: No respiratory distress, Other (Crackles left base) - Abdomen Abdomen: Other (Soft, mildly distended, there is significant tenderness in the left lower quadrant, Very mild tenderness in the left upper quadrant and right lower quadrant. No right upper quadrant tenderness. There are well-healed incisional scars on the abdomen.) - Derm Derm: Warm and dry - Extremities Extremities: No deformity - Neuro Neuro: Alert and oriented X 3 - Psych Psych: Normal mood, Normal affect Results - Vitals Vitals: Oxygen O2 Source Room air - Labs Labs: Microbiology 07/11/19 14:10 Blood Culture - Preliminary Blood 07/11/19 14:20 Blood Culture - Preliminary Blood NO GROWTH AFTER 1 DAY Laboratory Tests 07/11/19 07/11/19 07/11/19 14:10 14:10 14:20 WBC 5.9 RBC 3.27 L Hgb 10.2 L Hct 31.9 L MCV 97.6 MCH 31.2 H MCHC 32.0 RDW 15.9 H Plt Count 184 MPV 10.6 Neut # (Auto) 4.1 Lymph # (Auto) 1.3 L [place] # (Auto) 0.4 Eos # (Auto) 0.2 Baso # (Auto) 0.0 Absolute Nucleated RBC 0.00 Nucleated RBC % 0.0 Manual Slide Review Indicated WBC Morphology TOXIC GRANULATION Platelet Estimate NORMAL (130-450,000) Platelet Morphology NORMAL APPEARANCE RBC Morph Micro Appear 1+ BASO STIPPLING Sodium 133 L Potassium 3.9 Chloride 99 L Carbon Dioxide 24 Anion Gap 10.0 BUN 16 Creatinine 0.6 Estimated GFR (MDRD) 101 Glucose 131 H Lactic Acid 1.5 Calcium 8.5 Total Bilirubin 1.1 H AST 25 ALT 39 Alkaline Phosphatase 65 Total Protein 7.2 Albumin 3.6 Globulin 3.6 Albumin/Globulin Ratio 1.0 Lipase 33 Urine Color Urine Clarity Urine pH Ur Specific Hope Urine Protein Urine Glucose (UA) Urine Ketones Urine Occult Blood Urine Nitrite Urine Bilirubin Urine Urobilinogen Ur Leukocyte Esterase Ur Microscopic Review Urine Culture Comments 07/11/19 14:45 WBC RBC Hgb Hct MCV MCH MCHC RDW Plt Count MPV Neut # (Auto) Lymph # (Auto) [place] # (Auto) Eos # (Auto) Baso # (Auto) Absolute Nucleated RBC Nucleated RBC % Manual Slide Review WBC Morphology Platelet Estimate Platelet Morphology RBC Morph Micro Appear Sodium Potassium Chloride Carbon Dioxide Anion Gap BUN Creatinine Estimated GFR (MDRD) Glucose Lactic Acid Calcium Total Bilirubin AST ALT Alkaline Phosphatase Total Protein Albumin Globulin Albumin/Globulin Ratio Lipase Urine Color YELLOW Urine Clarity CLEAR Urine pH 8.0 H Ur Specific [place] 1.015 Urine Protein NEGATIVE Urine Glucose (UA) NEGATIVE Urine Ketones NEGATIVE Urine Occult Blood NEGATIVE Urine Nitrite NEGATIVE Urine Bilirubin NEGATIVE Urine Urobilinogen 0.2 (NORMAL) Ur Leukocyte Esterase NEGATIVE Ur Microscopic Review NOT INDICATED Urine Culture Comments NOT INDICATED - Rads (name of study) CT abd/pelvis W Radiology: Other (~4x4cm abscess adjacent to sigmoid, thought to be secondary to diverticulitis) PD MEDICAL DECISION MAKING - ED course Complexity details: considered differential (Neutropenic fever, constipation, diverticulitis, and, bowel obstruction, viral illness, urinary tract infection, pyelonephritis, appendicitis) ED course: On arrival patient is febrile and tachycardic, she was given Tylenol, IV fluids, morphine and Zofran. Blood cultures were drawn and patient was started on Zosyn.Labs show a white blood cell count of 5.9, which appears in line of patient's past values. Hemoglobin is also at her baseline at around 10.2. Abdominal labs are unrevealing. CT scan was obtained and shows a ~4x5cm abdominal abscess which is associated with the sigmoid colon, it is thought to be a complication from diverticulitis. I spoke with Dr. Barber of general surgery here at [facility], who thinks patient would be best served at a facility that has interventional radiology and more specialist available I spoke with Maru Cuevas of general surgery at [facility], then Dr. Nils Bello of installer apprentice/onc. Dr. Bello thinks this is less likely a post-surgical complication, Thinks the patient will be best managed with the hospitalist service and he will consult. I spoke to Dr. Chente Reyes, [facility] hospitalist, who accepted patient for transfer. Patient agrees with this plan. She will be transferred via ALS to [facility]. Since receiving the Tylenol and fluids patient has normal heart rate, her blood pressures been excellent throughout her stay, she is afebrile. Departure - Departure Disposition: 02 Transfer Acute Care Hosp Clinical Impression: Abdominal abscess Condition: Good Discharge Date/Time: 07/11/19 18:57
[2019-07-11] MEDS ORDERED: ACETAMINOPHEN 325 MG TABLET PO STA (13:45)
[2019-07-11 14:23] LABS: BASOPHILS % (AUTO) 0.2 %; EOSINOPHILS # (AUTO) 0.2 10^3/uL (0.0-0.7); EOSINOPHILS % (AUTO) 2.5 %; HGB - HEMOGLOBIN 10.2 g/dL (12.0-16.0); LYMPHOCYTES # (AUTO) 1.3 10^3/uL (1.5-3.5); LYMPHOCYTES % (AUTO) 21.7 %; MEAN CORPUSCULAR HEMOGLOBIN 31.2 pg (27.0-31.0); MEAN CORPUSCULAR VOLUME 97.6 fL (81.0-99.0); MEAN PLATELET VOLUME 10.6 fL (7.9-10.8); MONOCYTES # (AUTO) 0.4 10^3/uL (0.0-1.0); MONOCYTES % (AUTO) 6.1 %; NEUTROPHILS # (AUTO) 4.1 10^3/uL (1.5-6.6); NEUTROPHILS % (AUTO) 68.7 %; PLT - PLATELET COUNT 184 10^3/uL (130-450); RED BLOOD COUNT 3.27 10^6/uL (4.20-5.40); RED CELL DISTRIBUTION WIDTH 15.9 % (12.0-15.0); WHITE BLOOD COUNT 5.9 x10^3/uL (4.8-10.8)
[2019-07-11 14:31] LABS: ALBUMIN 3.6 g/dL (3.2-5.5); BILIRUBIN,TOTAL 1.1 mg/dL (0.2-1.0); CALCIUM 8.5 mg/dL (8.5-10.3); CREATININE 0.6 mg/dL (0.4-1.0); TOTAL PROTEIN 7.2 g/dL (6.7-8.2)
[2019-07-11 14:48] LABS: BILIRUBIN,URINE NEGATIVE (NEGATIVE); GLUCOSE, URINE (UA) NEGATIVE (NEGATIVE); KETONES,URINE (UA) NEGATIVE (NEGATIVE); LEUKOCYTE ESTERASE, URINE NEGATIVE (NEGATIVE); NITRITE,URINE NEGATIVE (NEGATIVE); OCCULT BLOOD,URINE NEGATIVE (NEGATIVE); PROTEIN,URINE NEGATIVE (NEGATIVE); UROBILINOGEN,URINE 0.2 (NORMAL) E.U./dL (NORMAL)
[2019-07-11 14:55] LABS: CLARITY,URINE CLEAR (CLEAR)
[2019-07-11 15:03] LABS: PLATELET ESTIMATE, MANUAL NORMAL (130-450,000) (NORMAL); PLATELET MORPHOLOGY NORMAL APPEARANCE (NORMAL)
--- NOTE | 2019-07-11 15:26 | XRAY Report ---
Reason: Fever, on chemo Procedure Date: 07/11/2019 Accession Number: [id number] / [id number] Procedure: XR - Chest 2 View X-Ray CPT Code: 25885 Final Report FULL RESULT: EXAM: CHEST RADIOGRAPHY EXAM DATE: 07/11/2019 02:59 PM. CLINICAL HISTORY: Fever, on chemo. COMPARISON: CHEST 1 VIEW 03/12/2019 10:20 AM ABDOMEN/PELVIS W/ 07/11/2019 2:51 PM. TECHNIQUE: 2 views. FINDINGS: Lungs/Pleura: No focal opacities evident. Mild nonspecific prominence of the pulmonary interstitium. No pleural effusion. No pneumothorax. Normal volumes. Mediastinum: Heart and mediastinal contours are unremarkable. Aortic also occasions are present. Other: Right chest port catheter terminates at the lower SVC region. Right upper quadrant surgical clips. There appears to be contrast from prior exam in the renal collecting systems bilaterally. IMPRESSION: No convincing acute cardiopulmonary abnormality. RADIA
--- NOTE | 2019-07-11 15:32 | CT Report ---
Reason: LLQ abdominal pain, vomiting, hx cancer Procedure Date: 07/11/2019 Accession Number: [id number] / [id number] Procedure: CT - Abdomen/Pelvis W CPT Code: Final Report FULL RESULT: EXAM: CT ABDOMEN AND PELVIS EXAM DATE: 07/11/2019 02:59 PM. CLINICAL HISTORY: LLQ abdominal pain, vomiting, hx cancer. COMPARISONS: ABDOMEN/PELVIS W/ 05/18/2019 7:46 AM. TECHNIQUE: Routine helical CT imaging was performed through the abdomen and pelvis. IV contrast: OPTI 320 90ML. Enteric contrast: No. Reconstructions: Coronal and sagittal. In accordance with CT protocol optimization, one or more of the following dose reduction techniques were utilized for this exam: automated exposure control, adjustment of mA and/or KV based on patient size, or use of iterative reconstructive technique. FINDINGS: Lung Bases: Unremarkable. Liver: Normal. No masses. Gallbladder/Bile Ducts: Status post cholecystectomy with clips in caliber fossa. Spleen: Normal. Pancreas: Normal. Adrenal Glands: Normal. Kidneys: Few subcentimeter hypodense bilateral renal lesions are too small to characterize. No masses or hydronephrosis. Peritoneal Cavity/Bowel: There is suggestion of a walled off hypodense fluid collection in left paracolonic region in left lower quadrant measuring 4.3 x 4.8 cm with mild perilesional fat stranding. This abscess is in close approximation to sigmoid colonic wall. There is suggestion of a few diverticula and findings are most consistent with acute diverticulitis with a pericolonic abscess formation. No suggestion of microperforation. Appendix is normal. Mild fat stranding and trace free fluid is seen in the pelvis. PelviC Organs: Normal. The bladder and visualized pelvic organs are within normal limits. Vasculature: No aneurysms or other significant abnormality. Bones: No significant abnormality. Other: None. IMPRESSION: A 4.3 x 4.8 cm hypodense fluid collection in left paracolonic region in left lower quadrant with perilesional fat stranding and trace free fluid in the pelvis. Findings are most consistent with colonic diverticulitis with associated abscess formation. Normal appendix. No bowel perforation. RADIA
[2019-07-11] MEDS ORDERED: PIPERACILLIN/TAZOBACTAM 4.5 GM in SODIUM CHLORIDE 0.9% MINIBAG 100 ML IV STA (15:45)
[2019-07-11] MEDS ORDERED: MORPHINE 2 MG/ML CARPUJECT IVP STA (17:23)
[2019-07-11 18:36] VITALS: BP 120/70
== END 2019-07-11 18:57 | disposition short-term general hospital (02) ==
LOC: ED 13:22
DX: K65.1 Peritoneal abscess (principal); R11.2 Nausea with vomiting, unspecified; R00.0 Tachycardia, unspecified; C79.9 Secondary malignant neoplasm of unspecified site; Z85.43 Personal history of malignant neoplasm of ovary; E03.9 Hypothyroidism, unspecified; J44.9 Chronic obstructive pulmonary disease, unspecified; Z87.891 Personal history of nicotine dependence
CPT/HCPCS: 36415; 71046; 74177; 80053; 81003; 83605; 83690; 85025; 87040; 87077; 87181; 96365; 96375; 96376; 99284; 99285; A9270; J7120; Q9967; 81001; 87086

== ENCOUNTER 2019-07-11 18:57 | Outpatient (CLI) | payer OTHER | END 2019-07-11 18:58 | disposition short-term general hospital (02) | LOC: EMS 18:57 | PROVIDERS: ATTEND Surgery | DX: R10.32 Left lower quadrant pain (principal) | CPT/HCPCS: A0425; A0428 ==

== ENCOUNTER 2019-07-23 08:00 | Outpatient (CLI) | payer OTHER ==
[2019-07-23 13:45] LABS: BASOPHILS % (AUTO) 0.5 %; EOSINOPHILS % (AUTO) 0.2 %; HGB - HEMOGLOBIN 10.8 g/dL (12.0-16.0); LYMPHOCYTES # (AUTO) 1.7 10^3/uL (1.5-3.5); LYMPHOCYTES % (AUTO) 27.3 %; MEAN CORPUSCULAR HEMOGLOBIN 31.7 pg (27.0-31.0); MEAN CORPUSCULAR HGB CONC 30.9 g/dL (32.0-36.0); MEAN CORPUSCULAR VOLUME 102.3 fL (81.0-99.0); MEAN PLATELET VOLUME 10.3 fL (7.9-10.8); MONOCYTES # (AUTO) 0.6 10^3/uL (0.0-1.0); MONOCYTES % (AUTO) 9.3 %; NEUTROPHILS # (AUTO) 3.9 10^3/uL (1.5-6.6); NEUTROPHILS % (AUTO) 61.9 %; PLT - PLATELET COUNT 238 10^3/uL (130-450); RED BLOOD COUNT 3.41 10^6/uL (4.20-5.40); RED CELL DISTRIBUTION WIDTH 16.4 % (12.0-15.0); WHITE BLOOD COUNT 6.3 x10^3/uL (4.8-10.8)
[2019-07-23 13:52] LABS: CALCIUM 9.1 mg/dL (8.5-10.3); CREATININE 0.7 mg/dL (0.4-1.0)
== END 2019-07-23 23:59 | disposition home or self-care (01) ==
LOC: LAB.R 08:00
PROVIDERS: ATTEND Internal Medicine Infectious Disease
DX: A41.9 Sepsis, unspecified organism (principal)
CPT/HCPCS: 80048; 85025

== ENCOUNTER 2019-10-27 09:50 | Outpatient (CLI) | payer OTHER ==
[2019-10-27 10:20] LABS: CREATININE 0.8 mg/dL (0.4-1.0)
== END 2019-10-27 09:51 | disposition home or self-care (01) ==
LOC: LAB 09:50
PROVIDERS: ATTEND Obstetrics & Gynecology
DX: C56.9 Malignant neoplasm of unspecified ovary (principal)
CPT/HCPCS: 36415; 82565; 84520; 86304

== ENCOUNTER 2019-12-09 15:55 | Outpatient (CLI) | payer OTHER | END 2019-12-09 15:56 | disposition home or self-care (01) | LOC: COV 15:55 | PROVIDERS: ATTEND Family Medicine | DX: R05 Cough (principal); R06.02 Shortness of breath; R06.2 Wheezing; M79.10 Myalgia, unspecified site; R53.83 Other fatigue; R19.7 Diarrhea, unspecified | CPT/HCPCS: 81599 ==

== ENCOUNTER 2019-12-29 12:30 | Outpatient (CLI) | payer OTHER | END 2019-12-29 12:31 | disposition home or self-care (01) | LOC: LAB 12:30 | PROVIDERS: ATTEND Obstetrics & Gynecology | DX: C56.9 Malignant neoplasm of unspecified ovary (principal) | CPT/HCPCS: 36415; 86304 ==

== ENCOUNTER 2020-04-11 07:00 | Outpatient (CLI) | payer OTHER | END 2020-04-11 07:01 | disposition home or self-care (01) | LOC: LAB.R 07:00 | PROVIDERS: ATTEND Physician Assistant | DX: R10.30 Lower abdominal pain, unspecified (principal) | CPT/HCPCS: 87086 ==

== ENCOUNTER 2020-04-20 11:06 | Outpatient (CLI) | payer OTHER | END 2020-04-20 11:07 | disposition home or self-care (01) | LOC: LAB 11:06 | PROVIDERS: ATTEND Obstetrics & Gynecology | DX: C56.9 Malignant neoplasm of unspecified ovary (principal) | CPT/HCPCS: 36415; 86304 ==

== ENCOUNTER 2020-04-28 14:19 | Outpatient (CLI) | payer OTHER ==
[2020-04-28 14:53] LABS: CREATININE 0.8 mg/dL (0.4-1.0)
== END 2020-04-28 14:20 | disposition home or self-care (01) ==
LOC: LAB 14:19
PROVIDERS: ATTEND Obstetrics & Gynecology
DX: C56.9 Malignant neoplasm of unspecified ovary (principal)
CPT/HCPCS: 36415; 82565; 84520

== ENCOUNTER 2020-05-04 15:34 | Outpatient (CLI) | payer OTHER ==
[2020-05-04] MEDS ORDERED: IOVERSOL 320 50 ML VIAL ONE (15:56)
[2020-05-04] MEDS ORDERED: IOVERSOL 320 100 ML VIAL IVP ONE ×2 (15:56→19:22)
--- NOTE | 2020-05-04 19:03 | CT Report ---
PROCEDURE: CHEST W INDICATIONS: NEOPLASM OF OVARY, PLEURAL EFFUSION CONTRAST: IV CONTRAST: Optiray 320 ml: 100 PO CONTRAST: Optiray 320 ml50 TECHNIQUE: After the administration of intravenous contrast, 5 mm thick sections acquired from the pulmonary api yasmine to the posterior costophrenic angles. 7 mm thick coronal MIP reformats were acquired. For radia tion dose reduction, the following was used: automated exposure control, adjustment of mA and/or kV according to patient size. COMPARISON: 05/18/2019 FINDINGS: Image quality: Excellent. Lungs and pleura: Moderate paraseptal and centrilobular emphysematous changes in the upper lobes, an d mildly in the central lower lobes. Juxta fissural right minor fissure nodule. No other nodules or m asses. No consolidations or pleural effusions. Mediastinum: Heart size is normal. Moderate coronary artery calcification is present. No pericardia l effusion. No mediastinal or hilar adenopathy by size criteria. Thoracic aorta and central pulmona ry arteries are normal in size. Esophagus is normal in caliber. No hiatal hernia. Bones and chest wall: Right IJ Mediport present. No suspicious bony lesions. Multilevel degenerative disc change in the thoracic spine. No vertebral body compression fractures. No axillary or supracla vicular adenopathy by size criteria. Thyroid gland is normal. Abdomen: Visualized upper abdominal solid organs appear normal. Upper abdominal bowel loops are nor mal in caliber. IMPRESSION: 1. No evidence of metastatic disease in the chest. 2. Moderate emphysematous changes. 3. Coronary artery disease. Reviewed by: Chelle Pina MD on 05/04/2020 6:02 PM MARLENA Approved by: Chelle Pina MD on 05/04/2020 6:02 PM AKDT Station ID: [id number]
--- NOTE | 2020-05-04 19:09 | CT Report ---
PROCEDURE: Abdomen/Pelvis W INDICATIONS: NEOPLASM OF OVARY, PLEURAL EFFUSION CONTRAST: IV CONTRAST: Optiray 320 ml: 100 PO CONTRAST: *NO PO CONTRAST TECHNIQUE: After the administration of 100 cc Optiray 320 IV contrast, 5 mm thick sections acquired from the tanika phragms to the symphysis. 5 mm thick coronal and sagittal reformats were acquired. For radiation do se reduction, the following was used: automated exposure control, adjustment of mA and/or kV accordi ng to patient size. COMPARISON: 07/11/2019 FINDINGS: Image quality: Excellent. ABDOMEN: Lung bases: Lung bases are clear. Heart size is normal. Solid organs: Liver is at the upper limits of normal in size and demonstrates moderate diffuse hypod ensity. The gallbladder is surgically absent. The spleen is normal size. No adrenal nodules. Pancreas enhances normally. There is a small duodenal diverticulum adjacent pancreatic head. There are severa l tiny calcifications in the dorsal aspect of the pancreatic head. Kidneys uptake and excrete IV cont rast symmetrically. There is a small exophytic left lower pole renal cyst. Peritoneum and bowel: Bowel loops demonstrate normal wall thickness and caliber. No free fluid or a ir. There are no interloop fluid collections. Nodes and vessels: No retroperitoneal or mesenteric adenopathy by size criteria. Aorta and inferior vena cava are normal in size. Heavy abdominal aortic calcification. Miscellaneous: No ventral hernias. PELVIS: Genitourinary: Bladder wall thickness is normal. Uterus and ovaries are absent. Miscellaneous: There are mild residual inflammatory changes and fascial thickening in the left lower quadrant with interval resolution of a left adnexal cystic mass. No new fluid collection or adenopath y. No visible hernias. Bones: No suspicious bony lesions. No vertebral body compression fractures. IMPRESSION: 1. No evidence of metastatic disease in the abdomen or pelvis. 2. Interval resolution of interloop fluid collections and left adnexal cystic mass with mild residual inflammatory changes present. 3. Hepatic steatosis. 4. Tiny calcifications in the pancreatic head suggesting chronic pancreatitis. 5. Heavy abdominal aortic calcification. Reviewed by: Chelle Pina MD on 05/04/2020 6:08 PM AKVINNY Approved by: Chelle Pina MD on 05/04/2020 6:08 PM AKDT Station ID: [id number]
[2020-05-04] MEDS ORDERED: IOVERSOL 320 50 ML VIAL PO ONE (19:21)
== END 2020-05-04 15:35 | disposition home or self-care (01) ==
LOC: DI 15:34
PROVIDERS: ATTEND Obstetrics & Gynecology
DX: C56.9 Malignant neoplasm of unspecified ovary (principal); I70.0 Atherosclerosis of aorta; I25.10 Atherosclerotic heart disease of native coronary artery without angina pectoris; J43.9 Emphysema, unspecified; K76.0 Fatty (change of) liver, not elsewhere classified
CPT/HCPCS: 71260; 74177; Q9967

== ENCOUNTER 2020-05-24 11:01 | Outpatient (CLI) | payer OTHER | END 2020-05-24 11:02 | disposition home or self-care (01) | LOC: LAB 11:01 | PROVIDERS: ATTEND Obstetrics & Gynecology | DX: C56.9 Malignant neoplasm of unspecified ovary (principal); R97.1 Elevated cancer antigen 125 [CA 125] | CPT/HCPCS: 36415; 86304 ==

== ENCOUNTER 2020-05-29 20:29 | Emergency (ER) | payer OTHER ==
[2020-05-29] MEDS ORDERED: KETOROLAC 60 MG/2 ML VIAL IM STA (21:47)
--- NOTE | 2020-05-29 21:52 | ED Physician Documentation ---
PD HPI BACK PAIN - Stated complaint Stated Complaint: FALL - Chief complaint Chief Complaint: Trauma Ch/Bk - History obtained from History obtained from: Patient - History of Present Illness Timing - onset: Enter time (1000), Today Timing - duration: Hours Timing - details: Abrupt onset, Still present Location: Lower, Right Quality: Pain, Spasm, Sharp Associated symptoms: No: Fever, Weakness, Numbness, Incontinent of urine, Unable to urinate, Hematuria, Incontinent of stool Improves with: Rest, Position Worsened by: Movement Contributing factors: Other (fell against a set of wooden steps.) Similar symptoms before: Has not had sx before Recently seen: Other (being seen regularly for LIBRARY SPECIALIST cancer in remission.) - Additional information Additional information: 65 y/o female was visiting family in [place] this morning when she slipped on wooden steps and landed on her lower back. She was able to continue her family visit but she did not feel like going back up the steps for birthday cake. Instead she got into her car and drove back to [facility]. She is here now seeking relief from the pain. She does not feel like she has broken a bone. She has a specific area in her back that is tender. Review of Systems Constitutional: denies: Fever Eyes: denies: Decreased vision Ears: denies: Ear pain Nose: denies: Congestion Throat: denies: Sore throat Cardiac: denies: Chest pain / pressure, Palpitations Respiratory: denies: Dyspnea, Cough GI: denies: Abdominal Pain, Nausea, Vomiting : denies: Dysuria, Frequency Musculoskeletal: reports: Back pain PD PAST MEDICAL HISTORY - Past Medical History Past Medical History: Yes Cardiovascular: Other Respiratory: Shortness of breath Neuro: None Endocrine/Autoimmune: HyPOthyroidism GI: None, Other LIBRARY SPECIALIST: Ovarian cancer : None, Other HEENT: Other Psych: Depression Musculoskeletal: None Derm: Other - Past Surgical History Past Surgical History: Yes General: Cholecystectomy /LIBRARY SPECIALIST: section, Hysterectomy Cardiovascular: Cardiac catheterization - Present Medications Home Medications: Ambulatory Orders Medication Instructions Recorded Confirmed Celecoxib 200 mg PO DAILY 08/21/18 05/29/20 Fluoxetine HCl 40 mg PO DAILY 08/21/18 05/29/20 Levothyroxine [Synthroid] 75 mcg PO QDAC 08/21/18 05/29/20 Pravastatin [Pravachol] 40 mg PO DAILY 08/21/18 05/29/20 Albuterol Sulf [Ventolin Hfa 1 - 2 puffs INH Q4HR PRN #1 inhaler 02/21/19 05/29/20 Inhaler] Acetaminophen [Tylenol] 1,300 mg PO DAILY 03/10/19 05/29/20 Cholecalciferol (Vitamin D3) 2,000 units PO DAILY 03/10/19 05/29/20 [Vitamin D3] Fluticasone Propion/Salmeterol 1 puffs PO BID 03/10/19 05/29/20 [Wixela 250-50 Inhub] Losartan [Cozaar] 25 mg PO DAILY 03/10/19 05/29/20 Nitroglycerin 0.4 mg SL DAILY PRN 03/10/19 05/29/20 Pantoprazole [Protonix] 40 mg PO DAILY 03/10/19 05/29/20 LORazepam [Lorazepam] 0.5 mg ORAL Q6HR PRN 03/31/19 05/29/20 Cyclobenzaprine [Flexeril] 10 mg PO TID PRN #20 tablet 05/29/20 Hydrocodone/Acetaminophen 1 - 2 each PO Q6H PRN #14 tablet 05/29/20 [Hydrocodone-Acetamin 5-325 mg] - Allergies Allergies/Adverse Reactions: Allergies Allergy/AdvReac Type Severity Reaction Status Date / Time No Known Drug Allergies Allergy Verified 05/29/20 20:32 - Social History Does the pt smoke?: Yes Smoking Status: Current every day smoker Does the pt drink ETOH?: Yes Does the pt have substance abuse?: No - POLST Patient has POLST: No PD ED PE NORMAL - Vitals Vital signs reviewed: Yes (hypertensive ) - General General: Alert and oriented X 3, No acute distress, Well developed/nourished - HEENT HEENT: Atraumatic, PERRL, EOMI - Neck Neck: Supple, no meningeal sign, No bony TTP - Cardiac Cardiac: RRR, No murmur - Respiratory Respiratory: No respiratory distress, Clear bilaterally - Abdomen Abdomen: Soft, Non tender - Back Back: No CVA TTP, No spinal TTP, Other (There is a bruise to the lower lumbar spine in a linear fashion perpendicular to the spine and to the right of midline at about the L4 level. ) - Derm Derm: Normal color, Warm and dry, No rash - Extremities Extremities: No deformity, No edema - Neuro Neuro: Alert and oriented X 3, project inspector 2-12 intact, No motor deficit, No sensory deficit, Normal speech Eye Opening: Spontaneous Motor: Obeys Commands Verbal: Oriented GCS Score: 15 - Psych Psych: Normal mood, Normal affect Results - Vitals Vitals: Vital Signs - 24 hr 05/29/20 05/29/20 05/29/20 20:32 22:18 22:47 Temperature 37.0 C 36.7 C 36.7 C Heart Rate 66 70 79 Respiratory 16 18 16 Rate Blood Pressure 140/56 H 137/57 H 136/59 H O2 Saturation 98 100 97 Oxygen O2 Source Room air - Rads (name of study) lumbar spine Radiology: Prelim report reviewed (Impression: no acute findings. ), EMP read indepedently, See rad report PD MEDICAL DECISION MAKING - ED course Complexity details: reviewed old records, reviewed results, re-evaluated patient, considered differential, d/w patient ED course: 65 y/o female with a fall against a wooden step has a bruise to the back with specific tenderness and no evidence of a fracture on plain films. She does not have adequate pain relief with the use of toradal and she is administered IM dilaudid with improvement. Departure - Departure Disposition: 01 Home, Self Care Clinical Impression: Lumbar contusion Qualifiers: Encounter type: initial encounter Qualified Code(s): S30.0XXA - Contusion of lower back and pelvis, initial encounter Condition: Stable Instructions: ED Low Back Pain Injury, ED Contusion Back Follow-Up: Whitney Quintana ARNP, [employer] [Primary Care Provider] - Prescriptions: Cyclobenzaprine [Flexeril] 10 mg PO TID PRN #20 tablet PRN Reason: Spasms Hydrocodone/Acetaminophen [Hydrocodone-Acetamin 5-325 mg] 1 - 2 each PO Q6H PRN #14 tablet PRN Reason: Pain Discharge Date/Time: 05/29/20 23:12
[2020-05-29] MEDS ORDERED: ONDANSETRON ODT 4 MG TABLET TL STA (22:25)
[2020-05-29] MEDS ORDERED: HYDROmorphone 1 MG/ML CARPUJECT IM STA (22:25)
[2020-05-29 22:48] VITALS: BP 136/59
[2020-05-29] MEDS ORDERED: HYDROcod/ACET 5/325 Prepack 4 PO STA (22:59)
[2020-05-29] MEDS ORDERED: CYCLOBENZAPRINE 10 MG Prepack 2 PO PRN (22:59)
--- NOTE | 2020-05-30 12:52 | XRAY Report ---
PROCEDURE: Lumbar Spine 2 View INDICATIONS: lumbar contusion L4 to the right TECHNIQUE: 2 views of the lumbar spine were acquired. COMPARISON: Lumbar spine x-ray 12/04/2018 FINDINGS: Bones: 5 [id number] vertebrae are present. There is grade 1 anterolisthesis of L4 on L5. There is trace retrolisthesis of L1 on L2, L2 on L3, L3 on L4. Moderate to severe disc space narrowing is present L4-5, L5-S1. Severe foraminal narrowing is noted at L5-S1. No vertebral body compression frac tures. No suspicious bony lesions. Soft tissues: Overlying bowel gas pattern is normal. No suspicious soft tissue calcifications. IMPRESSION: Stable degenerative changes. No visualized acute fracture or dislocation. However, occul t injury cannot be excluded. Recommend short interval imaging follow-up in 7-10 days as clinically in dicated for additional evaluation. The above findings are concordant with preliminary report. Reviewed by: Yeny Tsang MD on 05/30/2020 12:51 PM PDT Approved by: Yeny Tsang MD on 05/30/2020 12:51 PM PDT Station ID: [id number]
== END 2020-05-29 23:12 | disposition home or self-care (01) ==
LOC: ED 20:29
DX: S30.0XXA Contusion of lower back and pelvis, initial encounter (principal); W10.9XXA Fall (on) (from) unspecified stairs and steps, initial encounter; F17.200 Nicotine dependence, unspecified, uncomplicated; Z85.43 Personal history of malignant neoplasm of ovary
CPT/HCPCS: 72100; 96372; 99283; 99284; J1170; Q0162

== ENCOUNTER 2020-07-21 08:22 | Outpatient (CLI) | payer OTHER ==
[2020-07-21 13:01] LABS: BASOPHILS # (AUTO) 0.1 10^3/uL (0.0-0.1); BASOPHILS % (AUTO) 0.6 %; EOSINOPHILS # (AUTO) 0.2 10^3/uL (0.0-0.7); EOSINOPHILS % (AUTO) 1.9 %; HGB - HEMOGLOBIN 13.8 g/dL (12.0-16.0); LYMPHOCYTES % (AUTO) 25.8 %; MEAN CORPUSCULAR HEMOGLOBIN 29.4 pg (27.0-31.0); MEAN CORPUSCULAR HGB CONC 31.2 g/dL (32.0-36.0); MEAN CORPUSCULAR VOLUME 94.3 fL (81.0-99.0); MEAN PLATELET VOLUME 9.9 fL (7.9-10.8); MONOCYTES # (AUTO) 0.7 10^3/uL (0.0-1.0); MONOCYTES % (AUTO) 8.5 %; NEUTROPHILS # (AUTO) 4.9 10^3/uL (1.5-6.6); NEUTROPHILS % (AUTO) 62.7 %; PLT - PLATELET COUNT 328 10^3/uL (130-450); RED CELL DISTRIBUTION WIDTH 13.4 % (12.0-15.0); WHITE BLOOD COUNT 7.9 x10^3/uL (4.8-10.8)
[2020-07-21 13:25] LABS: ALBUMIN 3.9 g/dL (3.2-5.5); ALBUMIN/GLOBULIN RATIO 1.3 (1.0-2.2); ALKALINE PHOSPHATASE 102 IU/L (42-121); ALT ALANINE AMINOTRANSFERASE 30 IU/L (10-60); AST ASPARTATE AMINOTRANSFERASE 26 IU/L (10-42); BILIRUBIN,TOTAL 0.6 mg/dL (0.2-1.0); BUN - BLOOD UREA NITROGEN 18 mg/dL (6-20); CALCIUM 9.2 mg/dL (8.5-10.3); CARBON DIOXIDE - CO2 25 mmol/L (21-32); CHLORIDE 102 mmol/L (101-111); CHOL/HDL RATIO 3.4 (<4.4); CHOLESTEROL 166 mg/dL; CREATININE 0.8 mg/dL (0.4-1.0); GLUCOSE 124 mg/dL (70-100); HDL CHOLESTEROL 49 mg/dL; LDL CHOLESTEROL,CALCULATED 81 mg/dL; LDL/HDL RATIO 1.7 (<4.4); SODIUM 138 mmol/L (135-145); VLDL CHOLESTEROL 36 mg/dL
[2020-07-21 13:34] LABS: CA 125 684.6 U/mL (0.0-35.0)
[2020-07-21 14:04] LABS: HEMOGLOBIN A1c% 6.4 % (4.27-6.07)
== END 2020-07-21 23:59 | disposition home or self-care (01) ==
LOC: LAB.WCP 08:22
PROVIDERS: ATTEND Nurse Practitioner
DX: E88.81 Metabolic syndrome and other insulin resistance (principal); C51.9 Malignant neoplasm of vulva, unspecified; K21.9 Gastro-esophageal reflux disease without esophagitis; E78.2 Mixed hyperlipidemia; I10 Essential (primary) hypertension; E03.9 Hypothyroidism, unspecified
CPT/HCPCS: 36415; 80053; 80061; 83036; 83721; 84443; 85025; 86304

== ENCOUNTER 2020-09-05 10:02 | Inpatient (IN) | payer OTHER ==
--- NOTE | 2020-09-05 10:17 | ED Physician Documentation ---
History of Present Illness - Stated complaint Stated Complaint: FEVER/MUSCLE ACHES - Chief complaint Chief Complaint: Fever - History obtained from History obtained from: Patient - Additonal information Additional information: 65-year-old woman with history of metastatic cancer likely ovarian primary undergoing chemotherapy presents with fevers, chills and body aches since yesterday. She has a runny nose, sore throat, and a mildly productive cough. Body aches and urinary frequency. She has abdominal pain but no worse than her baseline pain from the cancer. Temp yesterday was 101.5. No sick contacts or recent travel. Review of Systems Constitutional: reports: Fever, Chills, Myalgias, Fatigue Nose: reports: Rhinorrhea / runny nose Throat: reports: Sore throat Respiratory: reports: Cough. 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: Ovarian cancer : None, Other HEENT: Other Psych: Depression Musculoskeletal: None Derm: Other - Past Surgical History Past Surgical History: Yes General: Cholecystectomy /TOBACCO SWEEPER: section, Hysterectomy Cardiovascular: Cardiac catheterization - Present Medications Home Medications: Ambulatory Orders Medication Instructions Recorded Confirmed Celecoxib 200 mg PO DAILY 08/21/18 08/23/20 Fluoxetine HCl 40 mg PO DAILY 08/21/18 08/23/20 Levothyroxine [Synthroid] 75 mcg PO QDAC 08/21/18 08/23/20 Pravastatin [Pravachol] 40 mg PO DAILY 08/21/18 08/23/20 Albuterol Sulf [Ventolin Hfa 1 - 2 puffs INH Q4HR PRN #1 inhaler 02/21/19 08/23/20 Inhaler] Acetaminophen [Tylenol] 1,300 mg PO DAILY 03/10/19 08/23/20 Cholecalciferol (Vitamin D3) 2,000 units PO DAILY 03/10/19 08/23/20 [Vitamin D3] Fluticasone Propion/Salmeterol 1 puffs PO BID 03/10/19 08/23/20 [Wixela 250-50 Inhub] Losartan [Cozaar] 25 mg PO DAILY 03/10/19 08/23/20 Nitroglycerin 0.4 mg SL DAILY PRN 03/10/19 08/23/20 Pantoprazole [Protonix] 40 mg PO DAILY 03/10/19 08/23/20 Cyclobenzaprine [Flexeril] 10 mg PO TID PRN #20 tablet 05/29/20 08/23/20 LORazepam [Ativan] 0.5 mg PO Q6H PRN #60 tablet 08/09/20 08/23/20 Ondansetron HCl 8 mg PO BID PRN #30 tablet 08/09/20 08/23/20 Olanzapine [Zyprexa] 5 mg PO UD #12 tablet 08/30/20 oxyCODONE [Roxicodone] 5 mg PO Q6H PRN #30 tablet 08/30/20 - Allergies Allergies/Adverse Reactions: Allergies Allergy/AdvReac Type Severity Reaction Status Date / Time No Known Drug Allergies Allergy Verified 09/05/20 10:12 - Social History Does the pt smoke?: Yes Smoking Status: Current every day smoker Does the pt drink ETOH?: Yes Does the pt have substance abuse?: No - POLST Patient has POLST: No PD ED PE NORMAL - Vitals Vital signs reviewed: Yes - General General: Alert and oriented X 3, No acute distress - HEENT HEENT: PERRL, EOMI - Neck Neck: Supple, no meningeal sign, No bony TTP - Cardiac Cardiac: RRR, No murmur - Respiratory Respiratory: No respiratory distress, Clear bilaterally - Abdomen Abdomen: Soft, Non tender - Back Back: No CVA TTP, No spinal TTP - Derm Derm: No rash - Neuro Neuro: Alert and oriented X 3, No motor deficit, No sensory deficit, Normal speech Results - Vitals Vitals: Vital Signs - 24 hr 09/05/20 09/05/20 09/05/20 10:09 10:22 10:55 Temperature 37.4 C 37.2 C Heart Rate 89 48 L 83 Respiratory 16 16 16 Rate Blood Pressure 144/73 H 144/73 H 111/72 O2 Saturation 96 96 95 Oxygen O2 Source Room air - Labs Labs: Laboratory Tests 09/05/20 09/05/20 09/05/20 10:35 10:35 10:35 WBC 1.2 L* RBC 4.11 L Hgb 12.2 Hct 37.4 MCV 91.0 MCH 29.7 MCHC 32.6 RDW 12.3 Plt Count 31 L* MPV 9.6 Neut # (Auto) Not Reportable Lymph # (Auto) Not Reportable Shoshone # (Auto) Not Reportable Eos # (Auto) Not Reportable Baso # (Auto) Not Reportable Absolute Nucleated RBC Not Reportable Total Counted 50 Band Neuts % (Manual) 0 Reactive Lymphs % (Man) 44 Abnorm Lymph % (Manual) 0 Nucleated RBC % Not Reportable Neutrophils # (Manual) 0.4 L* Lymphocytes # (Manual) 0.8 L Monocytes # (Manual) 0.0 Eosinophils # (Manual) 0.0 Basophils # (Manual) 0.0 Differential Comment MANUAL DIFFERENTIAL Manual Slide Review Indicated Sodium 136 Potassium 4.1 Chloride 100 L Carbon Dioxide 22 Anion Gap 14.0 H BUN 20 Creatinine 0.8 Estimated GFR (MDRD) 72 L Glucose 138 H Lactic Acid 1.5 Calcium 9.0 Total Bilirubin 0.6 AST 74 H ALT 102 H Alkaline Phosphatase 92 Total Protein 7.2 Albumin 3.7 Globulin 3.5 Albumin/Globulin Ratio 1.1 Urine Color Urine Clarity Urine pH Ur Specific [place] Urine Protein Urine Glucose (UA) Urine Ketones Urine Occult Blood Urine Nitrite Urine Bilirubin Urine Urobilinogen Ur Leukocyte Esterase 09/05/20 10:50 WBC RBC Hgb Hct MCV MCH MCHC RDW Plt Count MPV Neut # (Auto) Lymph # (Auto) Shoshone # (Auto) Eos # (Auto) Baso # (Auto) Absolute Nucleated RBC Total Counted Band Neuts % (Manual) Reactive Lymphs % (Man) Abnorm Lymph % (Manual) Nucleated RBC % Neutrophils # (Manual) Lymphocytes # (Manual) Monocytes # (Manual) Eosinophils # (Manual) Basophils # (Manual) Differential Comment Manual Slide Review Sodium Potassium Chloride Carbon Dioxide Anion Gap BUN Creatinine Estimated GFR (MDRD) Glucose Lactic Acid Calcium Total Bilirubin AST ALT Alkaline Phosphatase Total Protein Albumin Globulin Albumin/Globulin Ratio Urine Color YELLOW Urine Clarity CLEAR Urine pH 6.0 Ur Specific [place] 1.020 Urine Protein NEGATIVE Urine Glucose (UA) NEGATIVE Urine Ketones NEGATIVE Urine Occult Blood SMALL H Urine Nitrite NEGATIVE Urine Bilirubin NEGATIVE Urine Urobilinogen 0.2 (NORMAL) Ur Leukocyte Esterase TRACE H PD MEDICAL DECISION MAKING - ED course ED course: 65-year-old woman undergoing chemotherapy for peritoneal carcinomatosis presents with fever of 101.5 yesterday with some respiratory and urinary symptoms. Single view chest x-ray interpreted contemporaneously by me is negative. She is found to be neutropenic with an ANC of 400, evidence of UTI. She was started on cefepime and vancomycin and spoke with Dr. Rosas for admission at 11:15 AM. Departure - Departure Disposition: 67 [facility] DC/Xfer Clinical Impression: Neutropenic fever UTI (urinary tract infection) Qualifiers: Urinary tract infection type: site unspecified Hematuria presence: without hematuria Qualified Code(s): N39.0 - Urinary tract infection, site not specified Condition: Serious
--- NOTE | 2020-09-05 10:43 | XRAY Report ---
PROCEDURE: Chest 1 View X-Ray INDICATIONS: Cough TECHNIQUE: One view of the chest was acquired. COMPARISON: 07/11/2019 chest radiographs; 08/30/2020 fluoroscopic port and images FINDINGS: Surgical changes and devices: Right chest wall IJ port catheter appears similar when compared with fluoroscopic images. Lungs and pleura: No pleural effusions or pneumothorax. Lungs are clear. Mediastinum: Mediastinal contours appear normal. Heart size is normal. Bones and chest wall: No suspicious bony lesions. Overlying soft tissues appear unremarkable. IMPRESSION: No acute cardiac or pulmonary process demonstrated. Reviewed by: Saeed Mooney MD on 09/05/2020 10:42 AM PST Approved by: Saeed Mooney MD on 09/05/2020 10:42 AM [facility] Station ID: [id number]
[2020-09-05 10:44] LABS: BASOPHILS % (AUTO) 0.8 %; HGB - HEMOGLOBIN 12.2 g/dL (12.0-16.0); LYMPHOCYTES % (AUTO) 64.5 %; MEAN CORPUSCULAR HEMOGLOBIN 29.7 pg (27.0-31.0); MEAN CORPUSCULAR HGB CONC 32.6 g/dL (32.0-36.0); MEAN PLATELET VOLUME 9.6 fL (7.9-10.8); MONOCYTES % (AUTO) 0.8 %; NEUTROPHILS % (AUTO) 33.9 %; RED BLOOD COUNT 4.11 10^6/uL (4.20-5.40); RED CELL DISTRIBUTION WIDTH 12.3 % (12.0-15.0)
[2020-09-05 10:50] LABS: PLT - PLATELET COUNT 31 10^3/uL (130-450); WHITE BLOOD COUNT 1.2 x10^3/uL (4.8-10.8)
[2020-09-05 10:51] LABS: ABNORMAL LYMPHS % (MANUAL) 0 %; BAND NEUTROPHILS % (MANUAL) 0 %
[2020-09-05 10:56] LABS: ALBUMIN 3.7 g/dL (3.2-5.5); ALBUMIN/GLOBULIN RATIO 1.1 (1.0-2.2); BILIRUBIN,TOTAL 0.6 mg/dL (0.2-1.0); CREATININE 0.8 mg/dL (0.4-1.0); TOTAL PROTEIN 7.2 g/dL (6.7-8.2)
[2020-09-05 11:04] LABS: BILIRUBIN,URINE NEGATIVE (NEGATIVE); GLUCOSE, URINE (UA) NEGATIVE (NEGATIVE); KETONES,URINE (UA) NEGATIVE (NEGATIVE); LEUKOCYTE ESTERASE, URINE TRACE (NEGATIVE); NITRITE,URINE NEGATIVE (NEGATIVE); OCCULT BLOOD,URINE SMALL (NEGATIVE); PROTEIN,URINE NEGATIVE (NEGATIVE); UROBILINOGEN,URINE 0.2 (NORMAL) E.U./dL (NORMAL)
[2020-09-05] MEDS ORDERED: SODIUM CHLORIDE 0.9% 1,000 ML IV STA (11:06)
[2020-09-05 11:07] LABS: DIFFERENTIAL COMMENT MANUAL DIFFERENTIAL; LYMPHOCYTES # (MANUAL) 0.8 10^3/uL (1.5-3.5); LYMPHOCYTES % (MANUAL) 24 %
[2020-09-05 11:08] LABS: CLARITY,URINE CLEAR (CLEAR)
[2020-09-05] MEDS ORDERED: VANCOMYCIN INJ 1.5 GM in SODIUM CHLORIDE 0.9% 500 ML IV STA (11:09)
[2020-09-05] MEDS ORDERED: CEFEPIME 2 GM in SODIUM CHLORIDE 0.9% MINIBAG 100 ML IV STA (11:09)
[2020-09-05] MEDS ORDERED: SODIUM CHLORIDE FLUSH 0.9% 10 ML SYRINGE IVP PRN (11:15)
[2020-09-05 11:19] LABS: BACTERIA,URINE Few /HPF (None Seen); RBC,URINE 0-5 /HPF (0-5); SQUAMOUS EPITHELIAL CELL,UR MOD Squamous (<= Few)
--- NOTE | 2020-09-05 11:22 | HISTORY & PHYSICAL EXAMINATION ---
Chief Complaint - Chief Complaint Chief Complaint: Fever History of Present Illness - Admitted From Admitted From:: Home - History Obtained From Records Reviewed: Yes History obtained from: Patient, ER Physician, EMR - History of Present Illness HPI Comment/Other: This is a very pleasant 65-year-old female with a history of ovarian cancer, hypothyroidism who presents today complaining of fever and flulike symptoms. She states she restarted chemotherapy about 2 weeks ago for her ovarian cancer. She last received gemcitabine this past Saturday, approximately 6 days ago. This past Saturday she started to develop fevers at home with a temperature of 101.5. She also developed a sore throat, malaise, and fatigue. She was concern for possible COVID-19 and so she came to the emergency department today. She reports no shortness of breath although she has occasional cough. Reports some nausea associated with her chemotherapy but no vomiting. She does have mild lower abdominal pain which she states is chronic given her malignancy. She reports no dysuria or urgency but she has increased frequency over the past few days. Has not noticed any new rashes or skin changes. She has not noticed any bleeding recently. Denies any bruising or blood in her stool. She has been taking Tylenol given her cold-like symptoms and her fever at home In the emergency department, she was found to be neutropenic and thrombocytopenic. Her labs were otherwise unremarkable. Her chest x-ray did not suggest infection. Her urinalysis had moderate squamous cells. COVID-19 was negative. Given her fever and neutropenia, medicine was consulted for admis jose. I did discuss goals of care with the patient and she would like to be a full code. History - Past Medical History Cardiovascular: reports: None, Coronary artery disease Respiratory: reports: Shortness of breath Neuro: reports: None Endocrine/Autoimmune: reports: HyPOthyroidism GI: reports: None DRAFTER ELECTRONIC: reports: Ovarian cancer : reports: None, Other HEENT: reports: Other Psych: reports: Depression, Anxiety Musculoskeletal: reports: None Derm: reports: Other MRSA Hx?: No - Past Surgical History General: reports: Cholecystectomy /DRAFTER ELECTRONIC: reports: section, Hysterectomy, Oophrectomy Cardiovascular: reports: Cardiac catheterization - Family & Social History Family History Comment/Other: She reports her mother had heart disease and colorectal cancer. Living arrangement: At home Living Situation: With spouse/s.o. Social History Notes: Lives at home with her . She did smoke a pack a day for 30 years but quit over 10 years ago. She will drink occasional alcohol. - POLST Patient has POLST: No Meds/Allgy - Home Medications Home Medications: Ambulatory Orders Medication Instructions Recorded Confirmed Fluoxetine HCl 80 mg PO DAILY 08/21/18 09/05/20 Levothyroxine [Synthroid] 75 mcg PO QDAC 08/21/18 09/05/20 Pantoprazole [Protonix] 40 mg PO DAILY 03/10/19 09/05/20 LORazepam [Ativan] 0.5 mg PO Q6H PRN #60 tablet 08/09/20 09/05/20 Ondansetron HCl 8 mg PO BID PRN #30 tablet 08/09/20 09/05/20 Olanzapine [Zyprexa] 5 mg PO UD #12 tablet 08/30/20 09/05/20 oxyCODONE [Roxicodone] 5 mg PO Q6H PRN #30 tablet 08/30/20 09/05/20 Acetaminophen [Acetaminophen Extra 500 mg PO TID PRN 09/05/20 09/05/20 Strength] Cholecalciferol [Vitamin D3] 25 mcg PO DAILY 09/05/20 09/05/20 Triamcinolone 0.1% Cream [Kenalog 1 applic TOP DAILY 09/05/20 09/05/20 0.1% Cream] - Allergies Allergies/Adverse Reactions: Allergies Allergy/AdvReac Type Severity Reaction Status Date / Time No Known Drug Allergies Allergy Verified 09/05/20 10:12 Review of Systems - Constitutional Constitutional: reports: Fatigue, Fever, Chills, Malaise - Eyes Eyes: denies: Blurred vision - Ears, Nose & Throat Ears, Nose & Throat: reports: Sore throat. denies: Nasal congestion - Cardiovascular Cariovascular: denies: Chest pain, Exertional dyspnea, Decr. exercise tolerance - Respiratory Respiratory: reports: Cough. denies: Sputum production, SOB at rest, SOB with exertion - Gastrointestinal Gastrointestinal: reports: Abdominal pain, Nausea. denies: Change in bowel habits, Rectal bleeding, Bloody stools, Vomiting - Genitourinary Genitourinary: reports: Frequency, Urgency. denies: Dysuria, Hematuria - Musculoskeletal Musculoskeletal: denies: Back pain - Integumentary Integumentary: denies: Rash - Hematologic/Lymphatic Hematologic/Lymphatic: denies: Anemia, Bruising, Bleeding tendencies - All Other Systems All Other Systems: reports: Reviewed and negative Prior Level of Functionality: She is independent with her ADLs. Exam - Vital Signs Reviewed Vital Signs: Yes Vital Signs: Vital Signs x48h Temp Pulse Resp BP Pulse Ox 09/05/20 10:55 37.2 C 83 16 111/72 95 09/05/20 10:22 48 L 16 144/73 H 96 09/05/20 10:09 37.4 C 89 16 144/73 H 96 - Physical Exam General Appearance: positive: No acute distress, Alert Eyes Bilateral: positive: Normal inspection, Conjunctivae nml ENT: positive: ENT inspection nml, Pharynx nml Neck: positive: Nml inspection Respiratory: positive: No respiratory distress, Other (Port in place over the right anterior chest wall. No surrounding erythema or tenderness.). negative: Wheezes, Rales Cardiovascular: positive: Regular rate & rhythm, No murmur. negative: Tachycardia Abdomen: positive: Nml bowel sounds, No distention, Tenderness (Mild tenderness in lower abdomen). negative: Guarding, Rebound Skin: positive: Warm, Dry. negative: Skin rash Extremities: positive: No pedal edema Neurologic/Psychiatric: positive: Oriented x3, Motor nml. negative: Disoriented to person, Disoriented to place, Disoriented to time Conclusion/Plan - Problem List (1) Neutropenic fever Conclusion/Plan: Although she is afebrile here, she was febrile at home and she is neutropenic. Chest x-ray was unremarkable. Her urinalysis was not a clean-catch. We will admit her for IV antibiotics. We will place her on cefepime. We will hold off on vancomycin at this time. Will discuss with her oncologist if there is a role for G-CSF. Neutropenic diet. Follow-up blood cultures. We will repeat urinalysis given her frequency to ensure there is no infection. (2) Ovarian cancer Conclusion/Plan: Although this was previously in remission, she is now being treated once again for recurrence. She received gemcitabine last week and is due for another round of chemotherapy. She follows with Dr. Martin of oncology here at the [facility]. Continue outpatient follow-up once she is discharged. Qualifiers: Laterality: bilateral Qualified Code(s): C56.1 - Malignant neoplasm of r ight ovary; C56.2 - Malignant neoplasm of left ovary (3) Thrombocytopenia Conclusion/Plan: Likely secondary to chemotherapy. No evidence of bleeding. Daily CBC. No indication for transfusion at this time. (4) Hypothyroidism Conclusion/Plan: Continue Synthroid. - Lab Results Fish Bones: 09/05/20 10:35 09/05/20 10:35 Core Measures - Anticipated LOS I expect patient to be DC'd or transferred within 96 hours.: Yes - Issues Hospital Issues and Management Plan: 65-year-old female with ovarian cancer on chemotherapy presents with fever found to be neutropenic. Will admit for IV antibiotics and to rule out infection. - DVT/VTE - Prophylaxis VTE/DVT Device ordered at admit?: Yes VTE/DVT Prophylaxis med ordered at admit?: No
[2020-09-05 11:42] LABS: C. PNEUMONIAE- RESP PCR PANEL NOT DETECTED
[2020-09-05] MEDS ORDERED: ONDANSETRON ODT 4 MG TABLET TL STA (11:42)
[2020-09-05] MEDS: ACETAMINOPHEN 325 MG TABLET PO PRN ×2 (12:54→18:38)
[2020-09-05] MEDS: LACTATED RINGERS 1,000 ML IV SCH (12:54)
[2020-09-05] MEDS: ONDANSETRON ODT 4 MG TABLET TL PRN (12:54)
--- NOTE | 2020-09-05 13:32 | PHARMACY PROGRESS NOTE ---
- Best Possible Medication History Admit Date and Time: 09/05/20 1115 Processed by: Pharmacy Medication History completed: Yes Patient Interview: Pt unable to participate Secondary Source(s): Physician records, Pharmacy records, Insurance records ( PATIENT UNABLE TO BE INTERVIEWED. MEDICATION RECONCILIATION COMPLETED USING INSURANCE, PROVIDER, AND PHARMACY RECORDS ) As the person ultimately responsible for medication therapy, providers are able to order a medication from an existing home medication list in [facility] via the "Reconcile Routine" prior to Confirmation of that medication by client technical support associate. Such practice is discouraged except when the physician, in their clinical judgment, deems that a medical need exists for a medication without regard to previous use.
[2020-09-05] MEDS ORDERED: LORazepam 0.5 MG TABLET PO PRN (15:07)
[2020-09-05] MEDS: FILGRASTIM-SNDZ 300 MCG/0.5 ML SYRINGE SUBQ SCH (16:46)
[2020-09-05] MEDS: SODIUM CHLORIDE FLUSH 0.9% 10 ML SYRINGE IVP SCH (16:46)
[2020-09-05] MEDS: CEFEPIME 2 GM in SODIUM CHLORIDE 0.9% MINIBAG 100 ML IV SCH ×2 (17:53→22:02)
[2020-09-05 17:59] LABS: BILIRUBIN,URINE NEGATIVE (NEGATIVE); GLUCOSE, URINE (UA) NEGATIVE (NEGATIVE); KETONES,URINE (UA) NEGATIVE (NEGATIVE); LEUKOCYTE ESTERASE, URINE NEGATIVE (NEGATIVE); NITRITE,URINE NEGATIVE (NEGATIVE); OCCULT BLOOD,URINE TRACE-INTA (NEGATIVE); PH,URINE 5.5 PH (5.0-7.5); PROTEIN,URINE NEGATIVE (NEGATIVE); UROBILINOGEN,URINE 0.2 (NORMAL) E.U./dL (NORMAL)
[2020-09-05 18:06] LABS: CLARITY,URINE CLEAR (CLEAR)
[2020-09-05] MEDS: oxyCODONE 5 MG TABLET PO PRN (18:38)
[2020-09-06] MEDS: SODIUM CHLORIDE FLUSH 0.9% 10 ML SYRINGE IVP SCH ×4 (00:34→23:47)
[2020-09-06] MEDS: LACTATED RINGERS 1,000 ML IV SCH (01:05)
[2020-09-06] MEDS: ACETAMINOPHEN 325 MG TABLET PO PRN ×4 (01:21→23:47)
[2020-09-06] MEDS: oxyCODONE 5 MG TABLET PO PRN ×4 (01:21→20:51)
[2020-09-06] MEDS: ONDANSETRON ODT 4 MG TABLET TL PRN ×5 (01:25→23:47)
[2020-09-06 05:27] LABS: BASOPHILS % (AUTO) 0.4 %; HGB - HEMOGLOBIN 9.9 g/dL (12.0-16.0); LYMPHOCYTES % (AUTO) 37.7 %; MEAN CORPUSCULAR HEMOGLOBIN 29.3 pg (27.0-31.0); MEAN CORPUSCULAR HGB CONC 31.7 g/dL (32.0-36.0); MEAN CORPUSCULAR VOLUME 92.3 fL (81.0-99.0); MEAN PLATELET VOLUME 10.5 fL (7.9-10.8); MONOCYTES % (AUTO) 1.1 %; NEUTROPHILS % (AUTO) 60.1 %; RED BLOOD COUNT 3.38 10^6/uL (4.20-5.40); RED CELL DISTRIBUTION WIDTH 12.3 % (12.0-15.0); WHITE BLOOD COUNT 2.8 x10^3/uL (4.8-10.8)
[2020-09-06 05:32] LABS: PLT - PLATELET COUNT 19 10^3/uL (130-450)
[2020-09-06 05:33] LABS: ABNORMAL LYMPHS % (MANUAL) 0 %; BAND NEUTROPHILS % (MANUAL) 0 %
[2020-09-06 05:35] LABS: CALCIUM 8.1 mg/dL (8.5-10.3); CREATININE 0.8 mg/dL (0.4-1.0); MAGNESIUM 1.8 mg/dL (1.7-2.8)
[2020-09-06 05:52] LABS: LYMPHOCYTES # (MANUAL) 0.8 10^3/uL (1.5-3.5); LYMPHOCYTES % (MANUAL) 14 %; MONOCYTES # (MANUAL) 0.1 10^3/uL (0.0-1.0)
[2020-09-06 05:53] LABS: PLATELET ESTIMATE, MANUAL DECREASED (<130,000) (NORMAL); PLATELET MORPHOLOGY NORMAL APPEARANCE (NORMAL); RBC MORPHOLOGY (MULTIPLE) NORMAL APPEARANCE (NORMAL)
[2020-09-06] MEDS: LEVOTHYROXINE 75 MCG TABLET PO SCH (06:07)
[2020-09-06] MEDS: CEFEPIME 2 GM in SODIUM CHLORIDE 0.9% MINIBAG 100 ML IV SCH ×3 (06:07→22:42)
[2020-09-06] MEDS: PANTOPRAZOLE 40 MG TABLET PO SCH (09:12)
[2020-09-06] MEDS: CHOLECALCIFEROL 25 MCG TABLET PO SCH (09:12)
[2020-09-06] MEDS: FLUoxetine 10 MG CAPSULE PO SCH (09:12)
[2020-09-06] MEDS: polyethylene glycoL 3350 17 GM PACKET PO SCH (09:12)
--- NOTE | 2020-09-06 15:53 | PROVIDER PROGRESS NOTE ---
Assessment/Plan - Problem List (1) Neutropenic fever Assessment/Plan: Patient had a temperature 37.9 degree on last night. WBC is 2.8, Increases, patient was give G-CSF. Blood culture was negative. We will continue intravenous antibiotics. Neutropenic diet, continue Neutropenia infection precaution (2) Ovarian cancer Conclusion/Plan: Although this was previously in remission, she is now being treated once again for recurrence. She received gemcitabine last week and is due for another round of chemotherapy. She follows with Dr. Martin of oncology here at the [facility] clinic. Continue outpatient follow-up once she is discharged. (3) Thrombocytopenia Conclusion/Plan: Platelet is 19 on today morning, Reduced. Precaution patient's bleeding. 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 it is Likely secondary to chemotherapy. Daily CBC. (4) Hypothyroidism Conclusion/Plan: will check TSH, Continue Synthroid. - Current Meds Current Meds: Current Medications Generic Name Dose Route Start Last Admin Trade Name Freq PRN Reason Stop Dose Admin Acetaminophen 650 mg 09/05/20 11:15 09/06/20 08:10 Acetaminophen 325 Mg Tablet PO 650 mg Q4HR PRN Administration Pain 1 to 4 Cholecalciferol 25 mcg 09/06/20 09:00 09/06/20 09:12 Cholecalciferol 25 Mcg Tablet PO 25 mcg DAILY EMIR Administration Filgrastim 300 mcg 09/05/20 17:00 09/05/20 16:46 Filgrastim-Sndz 300 Mcg/0.5 Ml Syringe SUBQ 300 mcg Q24H EMIR Administration Fluoxetine HCl 80 mg 09/06/20 09:00 09/06/20 09:12 Fluoxetine 10 Mg Capsule PO 80 mg DAILY EMIR Administration Cefepime HCl 2 gm/ Sodium 100 mls @ 200 mls/hr 09/05/20 18:00 09/06/20 14:15 Chloride IV Infused TID EMIR Infusion Levothyroxine Sodium 75 mcg 09/06/20 07:00 09/06/20 06:07 Levothyroxine 75 Mcg Tablet PO 75 mcg QDAC EMIR Administration Lorazepam 0.5 mg 09/05/20 15:07 09/05/20 22:02 Lorazepam 0.5 Mg Tablet PO 0.5 mg Q6H PRN Administration Nausea / Vomiting Ondansetron HCl 4 mg 09/05/20 11:15 09/06/20 13:42 Ondansetron Odt 4 Mg Tablet TL 4 mg Q6HR PRN Administration Nausea / Vomiting Oxycodone HCl 5 mg 09/05/20 15:07 09/06/20 13:42 Oxycodone 5 Mg Tablet PO 5 mg Q6H PRN Administration PAIN Pantoprazole Sodium 40 mg 09/06/20 09:00 09/06/20 09:12 Pantoprazole 40 Mg Tablet PO 40 mg DAILY EMIR Administration Polyethylene Glycol 17 gm 09/06/20 09:00 09/06/20 09:12 Polyethylene Glycol 3350 17 Gm Packet PO 17 gm DAILY EMIR Administration Sodium Chloride 10 ml 09/05/20 17:00 09/06/20 09:13 Sodium Chloride Flush 0.9% 10 Ml Syringe IVP Not Given 0100,0900,1700 EMIR - Lab Result Fish Bone Diagrams: 09/06/20 05:00 09/06/20 05:00 - Additional Planning My Orders: My Active Orders 09/07/20 05:00 TSH [THYROID STIMULATING HORMONE] [IAI] DAILYLAB Subjective - Subjective Patient Reports: Feeling Better Objective Vital Signs: Vital Signs - 24 hr 09/05/20 09/05/20 09/05/20 16:29 18:33 20:06 Temperature 36.8 C 37.9 C 37.9 C Heart Rate [ 70 77 84 Brachial] Respiratory 18 18 Rate Blood Pressure 115/63 110/56 L 113/53 L [Left Brachial artery] O2 Saturation 96 97 09/05/20 09/06/20 09/06/20 23:22 04:55 09:00 Temperature 37.6 C 36.7 C 37.2 C Heart Rate [ 84 76 81 Brachial] Respiratory 20 16 16 Rate Blood Pressure 106/48 L 119/60 122/55 L [Left Brachial artery] O2 Saturation 97 93 91 L 09/06/20 13:00 Temperature 36.9 C Heart Rate [ 71 Brachial] Respiratory 16 Rate Blood Pressure 110/57 L [Left Brachial artery] O2 Saturation 91 L Oxygen O2 Source Room air I&O (Last 24 Hrs): Intake and Output Totals x24h 09/04/20 09/05/20 09/06/20 23:59 23:59 23:59 Intake Total 2255.833 2586.667 Output Total 650 Balance 0791.956 3634.667 General: Alert, Oriented x3, Cooperative, No acute distress HEENT: Atraumatic Neck: Supple Lymphatic: no adenopathy Neuro: Alert, Non Focal, Oriented Times 3 Cardiovascular: Regular rate, Normal S1, Normal S2 Respiratory: Chest non-tender, No respiratory distress, Breath sounds nml Abdomen: Normal bowel sounds, Soft Extremities: Normal pulses - Results Results: Laboratory Results WBC 2.8 x10^3/uL (4.8-10.8) L 09/06/20 05:00 RBC 3.38 10^6/uL (4.20-5.40) L 09/06/20 05:00 Hgb 9.9 g/dL (12.0-16.0) L 09/06/20 05:00 Hct 31.2 % (37.0-47.0) L 09/06/20 05:00 MCV 92.3 fL (81.0-99.0) 09/06/20 05:00 MCH 29.3 pg (27.0-31.0) 09/06/20 05:00 MCHC 31.7 g/dL (32.0-36.0) L 09/06/20 05:00 RDW 12.3 % (12.0-15.0) 09/06/20 05:00 Plt Count 19 10^3/uL (130-450) L* 09/06/20 05:00 MPV 10.5 fL (7.9-10.8) 09/06/20 05:00 Neut # (Auto) Not Reportable 09/06/20 05:00 Lymph # (Auto) Not Reportable 09/06/20 05:00 [place] # (Auto) Not Reportable 09/06/20 05:00 Eos # (Auto) Not Reportable 09/06/20 05:00 Baso # (Auto) Not Reportable 09/06/20 05:00 Absolute Nucleated RBC Not Reportable 09/06/20 05:00 Total Counted 100 09/06/20 05:00 Band Neuts % (Manual) 0 % (0-10) 09/06/20 05:00 Reactive Lymphs % (Man) 15 % 09/06/20 05:00 Abnorm Lymph % (Manual) 0 % 09/06/20 05:00 Nucleated RBC % Not Reportable 09/06/20 05:00 Neutrophils # (Manual) 1.9 10^3/uL (1.5-6.6) 09/06/20 05:00 Lymphocytes # (Manual) 0.8 10^3/uL (1.5-3.5) L 09/06/20 05:00 Monocytes # (Manual) 0.1 10^3/uL (0.0-1.0) 09/06/20 05:00 Eosinophils # (Manual) 0.0 10^3/uL (0-0.7) 09/06/20 05:00 Basophils # (Manual) 0.0 10^3/uL (0-0.1) 09/06/20 05:00 Differential Comment MANUAL DIFFERENTIAL 09/05/20 10:35 Manual Slide Review Indicated 09/05/20 10:35 Platelet Estimate DECREASED (<130,000) (NORMAL) 09/06/20 05:00 Platelet Morphology NORMAL APPEARANCE (NORMAL) 09/06/20 05:00 RBC Morph Micro Appear NORMAL APPEARANCE (NORMAL) 09/06/20 05:00 Sodium 134 mmol/L (135-145) L 09/06/20 05:00 Potassium 3.9 mmol/L (3.5-5.0) 09/06/20 05:00 Chloride 103 mmol/L (101-111) 09/06/20 05:00 Carbon Dioxide 23 mmol/L (21-32) 09/06/20 05:00 Anion Gap 8.0 (6-13) 09/06/20 05:00 BUN 15 mg/dL (6-20) 09/06/20 05:00 Creatinine 0.8 mg/dL (0.4-1.0) 09/06/20 05:00 Estimated GFR (MDRD) 72 (>89) L 09/06/20 05:00 Glucose 112 mg/dL (70-100) H 09/06/20 05:00 Lactic Acid 1.5 mmol/L (0.5-2.2) 09/05/20 10:35 Calcium 8.1 mg/dL (8.5-10.3) L 09/06/20 05:00 Magnesium 1.8 mg/dL (1.7-2.8) 09/06/20 05:00 Total Bilirubin 0.6 mg/dL (0.2-1.0) 09/05/20 10:35 AST 74 IU/L (10-42) H 09/05/20 10:35 ALT 102 IU/L (10-60) H 09/05/20 10:35 Alkaline Phosphatase 92 IU/L (42-121) 09/05/20 10:35 Total Protein 7.2 g/dL (6.7-8.2) 09/05/20 10:35 Albumin 3.7 g/dL (3.2-5.5) 09/05/20 10:35 Globulin 3.5 g/dL (2.1-4.2) 09/05/20 10:35 Albumin/Globulin Ratio 1.1 (1.0-2.2) 09/05/20 10:35 Urine Color YELLOW 09/05/20 17:52 Urine Clarity CLEAR (CLEAR) 09/05/20 17:52 Urine pH 5.5 PH (5.0-7.5) 09/05/20 17:52 Ur Specific [place] 1.015 (1.002-1.030) 09/05/20 17:52 Urine Protein NEGATIVE mg/dL (NEGATIVE) 09/05/20 17:52 Urine Glucose (UA) NEGATIVE mg/dL (NEGATIVE) 09/05/20 17:52 Urine Ketones NEGATIVE mg/dL (NEGATIVE) 09/05/20 17:52 Urine Occult Blood TRACE-INTA (NEGATIVE) 09/05/20 17:52 Urine Nitrite NEGATIVE (NEGATIVE) 09/05/20 17:52 Urine Bilirubin NEGATIVE (NEGATIVE) 09/05/20 17:52 Urine Urobilinogen 0.2 (NORMAL) E.U./dL (NORMAL) 09/05/20 17:52 Ur Leukocyte Esterase NEGATIVE (NEGATIVE) 09/05/20 17:52 Urine RBC 0-5 /HPF (0-5) 09/05/20 10:50 Urine WBC 0-3 /HPF (0-5) 09/05/20 10:50 Ur Squamous Epith Cells MOD Squamous (<= Few) H 09/05/20 10:50 Urine Bacteria Few /HPF (None Seen) 09/05/20 10:50 Ur Microscopic Review NOT INDICATED 09/05/20 17:52 Urine Culture Comments NOT INDICATED 09/05/20 17:52 Nasal Adenovirus (PCR) NOT DETECTED 09/05/20 10:30 Nasal B. parapertussis DNA (PCR) NOT DETECTED 09/05/20 10:30 Nasal Coronavir 229E PCR NOT DETECTED 09/05/20 10:30 Nasal Coronavir HKU1 PCR NOT DETECTED 09/05/20 10:30 Nasal Coronavir NL63 PCR NOT DETECTED 09/05/20 10:30 Nasal Coronavir OC43 PCR NOT DETECTED 09/05/20 10:30 Nasal Enterovir/Rhinovir PCR NOT DETECTED 09/05/20 10:30 Nasal Influenza B PCR NOT DETECTED 09/05/20 10:30 Nasal Influenza A PCR NOT DETECTED 09/05/20 10:30 Nasal Parainfluen 1 PCR NOT DETECTED 09/05/20 10:30 Nasal Parainfluen 2 PCR NOT DETECTED 09/05/20 10:30 Nasal Parainfluen 3 PCR NOT DETECTED 09/05/20 10:30 Nasal Parainfluen 4 PCR NOT DETECTED 09/05/20 10:30 Nasal RSV (PCR) NOT DETECTED 09/05/20 10:30 Nasal B.pertussis DNA PCR NOT DETECTED 09/05/20 10:30 Nasal C.pneumoniae (PCR) NOT DETECTED 09/05/20 10:30 Kings Human Metapneumo PCR NOT DETECTED 09/05/20 10:30 Nasal M.pneumoniae (PCR) NOT DETECTED 09/05/20 10:30 Nasal SARS-CoV-2 (PCR) NOT DETECTED 09/05/20 10:30 - Procedures Procedures: Procedures DRAINAGE OF LEFT PLEURAL CAVITY, PERCUTANEOUS APPROACH (03/09/19) ABX Reporting Has patient been on IV antibiotics over the past 48 hours?: Yes Current Medications - Current Medications Current Medications: Active Medications Acetaminophen (Acetaminophen 325 Mg Tablet) 650 mg PO Q4HR PRN PRN Reason: Pain 1 to 4 Last Admin: 09/06/20 08:10 Dose: 650 mg Documented by: Cholecalciferol (Cholecalciferol 25 Mcg Tablet) 25 mcg PO DAILY [facility] Last Admin: 09/06/20 09:12 Dose: 25 mcg Documented by: Filgrastim (Filgrastim-Sndz 300 Mcg/0.5 Ml Syringe) 300 mcg SUBQ Q24H [facility] Last Admin: 09/05/20 16:46 Dose: 300 mcg Documented by: Fluoxetine HCl (Fluoxetine 10 Mg Capsule) 80 mg PO DAILY [facility] Last Admin: 09/06/20 09:12 Dose: 80 mg Documented by: Cefepime HCl 2 gm/ Sodium (Chloride) 100 mls @ 200 mls/hr IV TID [facility] Last Infusion: 09/06/20 14:15 Dose: Infused Documented by: Levothyroxine Sodium (Levothyroxine 75 Mcg Tablet) 75 mcg PO QDAC [facility] Last Admin: 09/06/20 06:07 Dose: 75 mcg Documented by: Lorazepam (Lorazepam 0.5 Mg Tablet) 0.5 mg PO Q6H PRN PRN Reason: Nausea / Vomiting Last Admin: 09/05/20 22:02 Dose: 0.5 mg Documented by: Ondansetron HCl (Ondansetron Odt 4 Mg Tablet) 4 mg TL Q6HR PRN PRN Reason: Nausea / Vomiting Last Admin: 09/06/20 13:42 Dose: 4 mg Documented by: Oxycodone HCl (Oxycodone 5 Mg Tablet) 5 mg PO Q6H PRN PRN Reason: PAIN Last Admin: 09/06/20 13:42 Dose: 5 mg Documented by: Pantoprazole Sodium (Pantoprazole 40 Mg Tablet) 40 mg PO DAILY [facility] Last Admin: 09/06/20 09:12 Dose: 40 mg Documented by: Polyethylene Glycol (Polyethylene Glycol 3350 17 Gm Packet) 17 gm PO DAILY [facility] Last Admin: 09/06/20 09:12 Dose: 17 gm Documented by: Sodium Chloride (Sodium Chloride Flush 0.9% 10 Ml Syringe) 10 ml IVP PRN PRN PRN Reason: NEEDED PER PROVIDER ORDERS Sodium Chloride (Sodium Chloride Flush 0.9% 10 Ml Syringe) 10 ml IVP 0100,0900,1700 [facility] Last Admin: 09/06/20 09:13 Dose: Not Given Documented by: Fluoxetine HCl 80 mg PO DAILY 08/21/18 Levothyroxine [Synthroid] 75 mcg PO QDAC 08/21/18 Pantoprazole [Protonix] 40 mg PO DAILY 03/10/19 Acetaminophen [Acetaminophen Extra Strength] 500 mg PO TID PRN 09/05/20 Cholecalciferol [Vitamin D3] 25 mcg PO DAILY 09/05/20 Triamcinolone 0.1% Cream [Kenalog 0.1% Cream] 1 applic TOP DAILY 09/05/20
[2020-09-06] MEDS: FILGRASTIM-SNDZ 300 MCG/0.5 ML SYRINGE SUBQ SCH (17:33)
[2020-09-07] MEDS: LEVOTHYROXINE 75 MCG TABLET PO SCH (05:39)
[2020-09-07] MEDS: CEFEPIME 2 GM in SODIUM CHLORIDE 0.9% MINIBAG 100 ML IV SCH ×2 (05:39→14:17)
[2020-09-07] MEDS: SODIUM CHLORIDE FLUSH 0.9% 10 ML SYRINGE IVP SCH ×2 (05:39→18:12)
[2020-09-07 05:51] LABS: BASOPHILS % (AUTO) 0.6 %; EOSINOPHILS % (AUTO) 30.1 %; HGB - HEMOGLOBIN 10.8 g/dL (12.0-16.0); LYMPHOCYTES % (AUTO) 34.2 %; MEAN CORPUSCULAR HEMOGLOBIN 29.4 pg (27.0-31.0); MEAN CORPUSCULAR VOLUME 92.1 fL (81.0-99.0); MEAN PLATELET VOLUME 10.3 fL (7.9-10.8); MONOCYTES % (AUTO) 1.7 %; NEUTROPHILS % (AUTO) 30.2 %; RED BLOOD COUNT 3.67 10^6/uL (4.20-5.40); WHITE BLOOD COUNT 4.7 x10^3/uL (4.8-10.8)
[2020-09-07 05:58] LABS: CALCIUM 8.6 mg/dL (8.5-10.3); CREATININE 0.8 mg/dL (0.4-1.0)
[2020-09-07 06:16] LABS: PLT - PLATELET COUNT 15 10^3/uL (130-450)
[2020-09-07 06:18] LABS: ABNORMAL LYMPHS % (MANUAL) 0 %
[2020-09-07 06:22] LABS: BAND NEUTROPHILS % (MANUAL) 10 %; LYMPHOCYTES # (MANUAL) 0.5 10^3/uL (1.5-3.5); LYMPHOCYTES % (MANUAL) 10 %; MONOCYTES # (MANUAL) 0.1 10^3/uL (0.0-1.0); PLATELET ESTIMATE, MANUAL DECREASED (<130,000) (NORMAL); RBC MORPHOLOGY (MULTIPLE) NORMAL APPEARANCE (NORMAL)
[2020-09-07 06:23] LABS: DIFFERENTIAL COMMENT MANUAL DIFFERENTIAL
[2020-09-07] MEDS: CHOLECALCIFEROL 25 MCG TABLET PO SCH (09:25)
[2020-09-07] MEDS: PANTOPRAZOLE 40 MG TABLET PO SCH (09:25)
[2020-09-07] MEDS: FLUoxetine 10 MG CAPSULE PO SCH (09:25)
[2020-09-07] MEDS: polyethylene glycoL 3350 17 GM PACKET PO SCH (09:26)
[2020-09-07] MEDS: ONDANSETRON ODT 4 MG TABLET TL PRN (14:16)
--- NOTE | 2020-09-07 14:25 | Discharge Plan ---
Discharge Plan Problem Reviewed?: Yes Disposition: Home, Self Care Condition: Stable Prescriptions: cefUROXime axetiL [Ceftin] 500 mg PO Q12H #20 tablet Diet: Regular Activity Restrictions: Activity as Tolerated Shower Restrictions: No (fall precaution) Instruction Topics: Cefuroxime tablets, Neutropenia Health Concerns: neutropenia fever Plan of Treatment: you have no more fever at hospital after you are treated. Antibiotics is prescribed to you for another 5 days. you will have 2 units of Platelet on today. You are scheduled to have lab work on Next Saturday at [facility], please followup, also you state you have appointment on next Saturday to followup with your oncologist, please followup as well. Care Goals: stabilization and improvement of your medical conditions Assessment: discussed the care plan with you, answered your question, you understood. Additional Instructions or Follow Up instructions: you may followup with your PCP for 1-2 weeks, followup with your appointment on next Saturday for lab work and next Saturday for your oncologist. Should your symptoms return or worsen, you may present ER or call 911 for help. No Smoking: If you smoke, Please STOP! Call for help. Follow-up with: Whitney Quintana ARNP, [employer] [Primary Care Provider] -
--- NOTE | 2020-09-07 14:41 | DISCHARGE SUMMARY ---
Discharge Summary Admit Date: 09/05/20 Discharge Date: 09/07/20 Discharging Provider: Fransisco Martin Primary Care Provider: Whitney Cifuentes Condition at Discharge: Stable Discharge Disposition: Home, Self Care Discharge Facility Name: home - DIAGNOSES Discharge Diagnoses with Status of Each Condition: (1) Neutropenic fever Resolved, patient has no fever over 48 hours. Patient's WBC is 4.6 now. Blood culture is negative for bacteremia. Patient is prescribed antibiotics To finish the treatment course. (2) Ovarian cancer Patient has appointment on next Saturday with Dr. Marija Martin her oncologist, [place] ised patient follow-up the Appointment (3) Thrombocytopenia After the patient had 1 units platelet infusion, now patient platelets is 61. Discussed with oncologist Dr. Vasu Andrew in [facility], Patient is scheduled to have blood work on next Saturday by Dr. Vasu Andrew. Dr. Vasu Andrew Also recommended patient can be discharged after she had platelets infusion. (4) Hypothyroidism stable. - HPI History of Present Illness: refer from Dr. Rosas's HPI on 09/05/20 This is a very pleasant 65-year-old female with a history of ovarian cancer, hypothyroidism who presents today complaining of fever and flulike symptoms. She states she restarted chemotherapy about 2 weeks ago for her ovarian cancer. She last received gemcitabine this past Saturday, approximately 6 days ago. This past Saturday she started to develop fevers at home with a temperature of 101.5. She also developed a sore throat, malaise, and fatigue. She was concern for possible COVID-19 and so she came to the emergency department today. She reports no shortness of breath although she has occasional cough. Reports some nausea associated with her chemotherapy but no vomiting. She does have mild lower abdominal pain which she states is chronic given her malignancy. She reports no dysuria or urgency but she has increased frequency over the past few days. Has not noticed any new rashes or skin changes. She has not noticed any bleeding recently. Denies any bruising or blood in her stool. She has been taking Tylenol given her cold-like symptoms and her fever at home In the emergency department, she was found to be neutropenic and thrombocytopenic. Her labs were otherwise unremarkable. Her chest x-ray did not suggest infection. Her urinalysis had moderate squamous cells. COVID-19 was negative. Given her fever and neutropenia, medicine was consulted for admission. I did discuss goals of care with the patient and she would like to be a full code. - HOSPITAL COURSE Hospital Course: Patient was admitted for neutropenic fever. after Patient finished her chemotherapy for her ovarian cancer, She developed a fever. Patient was found to have neutropenia at WBC 1.2. after Patient was treated IV antibiotics, She has no more fever over 48 hours, Blood culture was negative for bacteremia. Hemoglobin is stable, Platelets was decreased. Discussed with oncologist Dr. Vasu Andrew, in [facility], Patient was recommended to have platelet infusion. After the patient had 1 units of platelets infusion, patient platelets become 61. Patient was scheduled to have blood work in next Saturday by Dr. Vasu Andrew, Patient have appointment to see her oncologist Dr. Martin on next Saturday. Patient is prescribed antibiotics to finish the treatment course. - ALLERGIES Allergies/Adverse Reactions: Allergies Allergy/AdvReac Type Severity Reaction Status Date / Time No Known Drug Allergies Allergy Verified 09/05/20 10:12 - MEDICATIONS Home Medications: Ambulatory Orders Medication Instructions Recorded Confirmed Fluoxetine HCl 80 mg PO DAILY 08/21/18 09/05/20 Levothyroxine [Synthroid] 75 mcg PO QDAC 08/21/18 09/05/20 Pantoprazole [Protonix] 40 mg PO DAILY 03/10/19 09/05/20 LORazepam [Ativan] 0.5 mg PO Q6H PRN #60 tablet 08/09/20 09/05/20 Ondansetron HCl 8 mg PO BID PRN #30 tablet 08/09/20 09/05/20 Olanzapine [Zyprexa] 5 mg PO UD #12 tablet 08/30/20 09/05/20 oxyCODONE [Roxicodone] 5 mg PO Q6H PRN #30 tablet 08/30/20 09/05/20 Acetaminophen [Acetaminophen Extra 500 mg PO TID PRN 09/05/20 09/05/20 Strength] Cholecalciferol [Vitamin D3] 25 mcg PO DAILY 09/05/20 09/05/20 Triamcinolone 0.1% Cream [Kenalog 1 applic TOP DAILY 09/05/20 09/05/20 0.1% Cream] cefUROXime axetiL [Ceftin] 500 mg PO Q12H #20 tablet 09/07/20 - PHYSICAL EXAM AT DISCHARGE General Appearance: positive: No acute distress, Alert. negative: Lethargic Eyes Bilateral: positive: Normal inspection, PERRL, No lid inflammation ENT: positive: ENT inspection nml, No signs of dehydration. negative: Purulent nasal drainage Neck: positive: Nml inspection, Trachea midline. negative: Thyromegaly, Tracheal deviation Respiratory: positive: Chest non-tender, No respiratory distress, Breath sounds nml. negative: Wheezes, Rales, Rhonchi Cardiovascular: positive: Regular rate & rhythm, No murmur. negative: Tachycar tanika, Bradycardia, Systolic murmur, Diastolic murmur Peripheral Pulses: positive: 2+ Abdomen: positive: Non-tender, Nml bowel sounds, No distention. negative: Tenderness, Guarding, Rebound Back: positive: Nml inspection, CVA tenderness (R). negative: CVA tenderness (L) Skin: positive: Color nml, Warm, Dry. negative: Cyanosis, Diaphoresis, Pallor Extremities: positive: Non-tender, Nml appearance. negative: Calf tenderness, Edna's sign/cords Neurologic/Psychiatric: positive: Oriented x3, Motor nml, Sensation nml, Mood/affect nml. negative: Weakness, Sensory loss, Facial droop, Slurred/abnml speech, Depressed mood/affect - LABS Result Diagrams: 09/07/20 18:35 09/07/20 04:52 - FOLLOW UP Follow Up: you have no more fever at hospital after you are treated. Antibiotics is prescribed to you for another 5 days. you will have 2 units of Platelet on today. You are scheduled to have lab work on Next Saturday [place] [facility], please followup, also you state you have appointment on next Saturday to followup with your oncologist, please followup as well. you may followup with your PCP for 1-2 weeks, followup with your appointment on next Saturday for lab work and next Saturday for your oncologist. Should your symptoms return or worsen, you may present ER or call 911 for help. - TIME SPENT Time Spent in Discharge (Minutes): 30
[2020-09-07] MEDS: oxyCODONE 5 MG TABLET PO PRN (16:08)
[2020-09-07 18:01] VITALS: BP 115/51
[2020-09-07] MEDS: FILGRASTIM-SNDZ 300 MCG/0.5 ML SYRINGE SUBQ SCH (18:16)
[2020-09-07 18:41] LABS: BASOPHILS % (AUTO) 0.4 %; EOSINOPHILS % (AUTO) 0.4 %; HGB - HEMOGLOBIN 9.8 g/dL (12.0-16.0); LYMPHOCYTES % (AUTO) 32.7 %; MEAN CORPUSCULAR HEMOGLOBIN 29.9 pg (27.0-31.0); MEAN CORPUSCULAR HGB CONC 32.3 g/dL (32.0-36.0); MEAN CORPUSCULAR VOLUME 92.4 fL (81.0-99.0); MEAN PLATELET VOLUME 9.4 fL (7.9-10.8); MONOCYTES % (AUTO) 3.6 %; NEUTROPHILS % (AUTO) 62.5 %; PLT - PLATELET COUNT 61 10^3/uL (130-450); RED BLOOD COUNT 3.28 10^6/uL (4.20-5.40); RED CELL DISTRIBUTION WIDTH 12.2 % (12.0-15.0); WHITE BLOOD COUNT 4.5 x10^3/uL (4.8-10.8)
[2020-09-07 18:43] LABS: ABNORMAL LYMPHS % (MANUAL) 0 %
[2020-09-07 20:47] LABS: BAND NEUTROPHILS % (MANUAL) 4 %; LYMPHOCYTES # (MANUAL) 1.5 10^3/uL (1.5-3.5); LYMPHOCYTES % (MANUAL) 33 %; MONOCYTES # (MANUAL) 0.2 10^3/uL (0.0-1.0)
[2020-09-07 20:48] LABS: DIFFERENTIAL COMMENT MANUAL DIFFERENTIAL; PLATELET ESTIMATE, MANUAL DECREASED (<130,000) (NORMAL); PLATELET MORPHOLOGY NORMAL APPEARANCE (NORMAL); RBC MORPHOLOGY (MULTIPLE) NORMAL APPEARANCE (NORMAL)
== END 2020-09-07 19:45 | disposition home or self-care (01) | DRG 809 ==
LOC: ED 10:02 → MS3 11:15
PROVIDERS: ADMIT Internal Medicine; ATTEND Nurse Practitioner Gerontology
PROC: 30243R1 Transfusion of Nonautologous Platelets into Central Vein, Percutaneous Approach (ICD-10-PCS; principal; 2020-09-07)
DX: D70.1 Agranulocytosis secondary to cancer chemotherapy (principal); C56.2 Malignant neoplasm of left ovary; C56.1 Malignant neoplasm of right ovary; T45.1X5A Adverse effect of antineoplastic and immunosuppressive drugs, initial encounter; R50.81 Fever presenting with conditions classified elsewhere; D69.59 Other secondary thrombocytopenia; E03.9 Hypothyroidism, unspecified; Z87.891 Personal history of nicotine dependence; Z20.822 Contact with and (suspected) exposure to COVID-19; R35.0 Frequency of micturition; J02.9 Acute pharyngitis, unspecified; R53.83 Other fatigue; Y92.9 Unspecified place or not applicable
CPT/HCPCS: 0202U; 36415; 71045; 80048; 80053; 81001; 81003; 83605; 83735; 84443; 85025; 86850; 86900; 86901; 87040; 99284; 99285; A9270; J3370; J7120; P9037; Q0162; Q5101; 87086

== ENCOUNTER 2020-10-04 09:30 | Emergency (ER) | payer OTHER ==
--- NOTE | 2020-10-04 09:37 | ED Physician Documentation ---
PD HPI CHEST PAIN - Stated complaint Stated Complaint: CHEST PX - History obtained from History obtained from: Patient - History of Present Illness Timing - onset: Today, Last night (about midnight) Timing - onset during: Sleep Timing - duration: Hours Timing - details: Abrupt onset (onset substernal chest pressure/pain since about midnight, and has persisted to some degree. No worse with breathing nor movement.), Still present, Waxing and waning Quality: Tightness, Aching Location: Substernal Radiation: Back Worsened by: Inspiration. No: Exertion Associated symptoms: Nausea. No: Shortness of air, Diaphoresis, Feeling faint / dizzy, Palpitations Similar symptoms before: Diagnosis (some chest pain/dyspnea with prior lung effusion.), Has not had sx before Recently seen: Not recently seen Review of Systems Constitutional: denies: Fever, Chills Nose: denies: Rhinorrhea / runny nose, Congestion, Epistaxis Throat: denies: Sore throat Respiratory: denies: Cough GI: denies: Diarrhea, Hematemesis, Bloody / black stool : reports: Frequency. denies: Dysuria Skin: denies: Rash, Lesions PD PAST MEDICAL HISTORY - Past Medical History Cardiovascular: None, Coronary artery disease Respiratory: Shortness of breath Neuro: None Endocrine/Autoimmune: HyPOthyroidism GI: None PEANUT SEPARATOR: Ovarian cancer : None, Other HEENT: Other Psych: Depression, Anxiety Musculoskeletal: None Derm: Other - Past Surgical History Past Surgical History: Yes General: Cholecystectomy /PEANUT SEPARATOR: section, Hysterectomy, Oophrectomy Cardiovascular: Cardiac catheterization - Present Medications Home Medications: Ambulatory Orders Medication Instructions Recorded Confirmed Fluoxetine HCl 80 mg PO DAILY 08/21/18 09/26/20 Levothyroxine [Synthroid] 75 mcg PO QDAC 08/21/18 09/26/20 Pantoprazole [Protonix] 40 mg PO DAILY 03/10/19 09/26/20 LORazepam [Ativan] 0.5 mg PO Q6H PRN #60 tablet 08/09/20 09/26/20 Olanzapine [Zyprexa] 5 mg PO UD #12 tablet 08/30/20 09/26/20 oxyCODONE [Roxicodone] 5 mg PO Q6H PRN #30 tablet 08/30/20 09/26/20 Acetaminophen [Acetaminophen Extra 500 mg PO TID PRN 09/05/20 09/26/20 Strength] Cholecalciferol [Vitamin D3] 25 mcg PO DAILY 09/05/20 09/26/20 Triamcinolone 0.1% Cream [Kenalog 1 applic TOP DAILY 09/05/20 09/26/20 0.1% Cream] Celecoxib [Celebrex] 50 mg PO DAILY 09/26/20 09/26/20 oxyCODONE [Roxicodone] 5 mg PO Q12H PRN #30 tab 09/27/20 Butalb/Acetaminophen/Caffeine 1 each PO Q8H PRN #15 cap 10/04/20 [Fioricet 50-300-40 mg Capsule] Prochlorperazine [Compazine] 5 mg PO Q8H PRN #10 10/04/20 dexAMETHasone [Decadron] 4 mg PO DAILY #7 tab 10/04/20 - Allergies Allergies/Adverse Reactions: Allergies Allergy/AdvReac Type Severity Reaction Status Date / Time No Known Drug Allergies Allergy Verified 10/04/20 09:37 - Social History Does the pt smoke?: Yes Smoking Status: Former smoker Does the pt drink ETOH?: Yes Does the pt have substance abuse?: No - POLST Patient has POLST: No PD ED PE NORMAL - Vitals Vital signs reviewed: Yes - General General: Alert and oriented X 3, No acute distress, Well developed/nourished - HEENT HEENT: Moist mucous membranes, Pharynx benign - Neck Neck: Supple, no meningeal sign, No adenopathy - Cardiac Cardiac: RRR, No murmur - Respiratory Respiratory: Clear bilaterally - Abdomen Abdomen: Normal bowel sounds, Soft, Non tender, Non distended - Back Back: No CVA TTP - Derm Derm: Normal color, Warm and dry - Extremities Extremities: No tenderness to palpate, Normal ROM s pain, No edema, No calf tenderness / cord - Neuro Neuro: Alert and oriented X 3, No motor deficit, Normal speech Results - Vitals Vitals: Vital Signs - 24 hr 10/04/20 10/04/20 10/04/20 09:37 10:09 10:30 Temperature 36.2 C L Heart Rate 72 84 73 Respiratory 22 19 21 Rate Blood Pressure 161/81 H 162/86 H 138/68 H O2 Saturation 97 98 93 10/04/20 10/04/20 10/04/20 11:00 11:30 12:00 Temperature Heart Rate 78 73 64 Respiratory 17 14 16 Rate Blood Pressure 153/81 H 156/77 H 152/79 H O2 Saturation 96 94 93 10/04/20 10/04/20 12:30 13:00 Temperature Heart Rate 67 76 Respiratory 14 22 Rate Blood Pressure 153/81 H 162/82 H O2 Saturation 94 96 Oxygen O2 Source Room air - EKG (time done) 09:34 Rate: Rate (enter#) (68) Rhythm: NSR [place]: Normal Intervals: Normal GA QRS: Normal Ischemia: Normal ST segments. No: ST elevation c/w ischemia, ST depression - Labs Labs: Laboratory Tests 10/04/20 10/04/20 10/04/20 09:40 09:40 09:40 WBC 4.7 L RBC 3.47 L Hgb 10.6 L Hct 32.3 L MCV 93.1 MCH 30.5 MCHC 32.8 RDW 14.5 Plt Count 15 L* MPV 11.6 H Neut # (Auto) Not Reportable Lymph # (Auto) Not Reportable [place] # (Auto) Not Reportable Eos # (Auto) Not Reportable Baso # (Auto) Not Reportable Absolute Nucleated RBC Not Reportable Total Counted 100 Band Neuts % (Manual) 4 Abnorm Lymph % (Manual) 0 Metamyelocytes % 1 H Nucleated RBC % Not Reportable Neutrophils # (Manual) 2.7 Lymphocytes # (Manual) 1.6 Monocytes # (Manual) 0.3 Eosinophils # (Manual) 0.0 Basophils # (Manual) 0.0 Nucleated RBCs 1 Differential Comment MANUAL DIFFERENTIAL Platelet Estimate DECREASED (<130,000) Platelet Morphology NORMAL APPEARANCE RBC Morph Micro Appear NORMAL APPEARANCE Sodium 139 Potassium 4.2 Chloride 106 Carbon Dioxide 22 Anion Gap 11.0 BUN 17 Creatinine 0.7 Estimated GFR (MDRD) 84 L Glucose 100 Calcium 9.1 Total Bilirubin 0.3 AST 64 H ALT 81 H Alkaline Phosphatase 143 H Troponin I High Sens 6.2 B-Natriuretic Peptide Total Protein 6.9 Albumin 3.6 Globulin 3.3 Albumin/Globulin Ratio 1.1 Lipase 29 10/04/20 09:50 WBC RBC Hgb Hct MCV MCH MCHC RDW Plt Count MPV Neut # (Auto) Lymph # (Auto) [place] # (Auto) Eos # (Auto) Baso # (Auto) Absolute Nucleated RBC Total Counted Band Neuts % (Manual) Abnorm Lymph % (Manual) Metamyelocytes % Nucleated RBC % Neutrophils # (Manual) Lymphocytes # (Manual) Monocytes # (Manual) Eosinophils # (Manual) Basophils # (Manual) Nucleated RBCs Differential Comment Platelet Estimate Platelet Morphology RBC Morph Micro Appear Sodium Potassium Chloride Carbon Dioxide Anion Gap BUN Creatinine Estimated GFR (MDRD) Glucose Calcium Total Bilirubin AST ALT Alkaline Phosphatase Troponin I High Sens B-Natriuretic Peptide 679 H Total Protein Albumin Globulin Albumin/Globulin Ratio Lipase - Rads (name of study) chest xray Radiology: Prelim report reviewed, See rad report (no finltrates, PTX nor failure. ) PD MEDICAL DECISION MAKING - ED course Complexity details: considered differential, d/w patient, d/w weight loss consultant (Dr. Martin, statement distribution clerk. ) Departure - Departure Disposition: 01 Home, Self Care Clinical Impression: Thrombocytopenia, Substernal chest pain Migraine headache Qualifiers: Migraine type: without aura Status migrainosus presence: without status migrainosus Intractability: not intractable Qualified Code(s): G43.009 - Migraine without aura, not intractable, without status migrainosus Condition: Stable Record reviewed to determine appropriate education?: Yes Instructions: ED Chest Pain NonCardiac Follow-Up: Whitney Quintana ARNP, GLUING CREW LEADER-C [Primary Care Provider] - Walt Howard MD [Provider Admit Priv/Credential] - Prescriptions: Prochlorperazine [Compazine] 5 mg PO Q8H PRN #10 PRN Reason: Migraine dexAMETHasone [Decadron] 4 mg PO DAILY #7 tab Butalb/Acetaminophen/Caffeine [Fioricet 50-300-40 mg Capsule] 1 each PO Q8H PRN #15 cap PRN Reason: Migraine Comments: Your chest x-ray is clear without any signs of fluid around the lungs pneumonia or collapsed lung. Your EKG and troponin tests are normal so no signs of heart injury/cause. Presume some inflammation through the chest wall around the lung causing your pain. We will treat this with Decadron steroid anti-inflammatory. Given your low platelet count, we do not want to use any aspirin or NSAIDs. Continue your other usual medicines. Add Tylenol or your prescription pain medicine as needed for worse pain. Consider taking Tylenol 325 mg 4 times a day regularly for the next several days to week and you could add your prescription pain medicine on top of that if needed. For your migraine type headaches, you can try the Fioricet every 8 hours or so if needed for the migraine when that happens. If that is not as effective, try the prochlorperazine (Compazine) instead. This is a nausea medicine but has a good effect on migraines. Follow-up with Dr. Horvath as planned. Return if problems, in particular any persistent or notable bleeding. Discharge Date/Time: 10/04/20 13:17
[2020-10-04 09:50] LABS: BASOPHILS % (AUTO) 1.1 %; EOSINOPHILS % (AUTO) 0.2 %; HGB - HEMOGLOBIN 10.6 g/dL (12.0-16.0); LYMPHOCYTES % (AUTO) 40.5 %; MEAN CORPUSCULAR HEMOGLOBIN 30.5 pg (27.0-31.0); MEAN CORPUSCULAR HGB CONC 32.8 g/dL (32.0-36.0); MEAN CORPUSCULAR VOLUME 93.1 fL (81.0-99.0); MEAN PLATELET VOLUME 11.6 fL (7.9-10.8); MONOCYTES % (AUTO) 6.3 %; NEUTROPHILS % (AUTO) 50.2 %; RED BLOOD COUNT 3.47 10^6/uL (4.20-5.40); RED CELL DISTRIBUTION WIDTH 14.5 % (12.0-15.0); WHITE BLOOD COUNT 4.7 x10^3/uL (4.8-10.8)
[2020-10-04 09:57] LABS: ABNORMAL LYMPHS % (MANUAL) 0 %; PLT - PLATELET COUNT 15 10^3/uL (130-450)
[2020-10-04] MEDS ORDERED: SODIUM CHLORIDE 0.9% 1,000 ML IV STA (09:58)
[2020-10-04] MEDS ORDERED: KETOROLAC 15 MG/ML VIAL IVP STA (09:58)
[2020-10-04] MEDS ORDERED: PROCHLORPERAZINE 10 MG/2 ML VIAL IVP STA (09:58)
[2020-10-04] MEDS ORDERED: HYDROmorphone 1 MG/ML CARPUJECT IVP STA (09:58)
[2020-10-04 10:04] LABS: ALBUMIN 3.6 g/dL (3.2-5.5); ALBUMIN/GLOBULIN RATIO 1.1 (1.0-2.2); BILIRUBIN,TOTAL 0.3 mg/dL (0.2-1.0); CALCIUM 9.1 mg/dL (8.5-10.3); CREATININE 0.7 mg/dL (0.4-1.0); TOTAL PROTEIN 6.9 g/dL (6.7-8.2)
--- NOTE | 2020-10-04 10:10 | XRAY Report ---
PROCEDURE: Chest 1 View X-Ray INDICATIONS: Chest pain TECHNIQUE: One view of the chest was acquired. COMPARISON: Chest radiographs 09/05/2020 FINDINGS: Surgical changes and devices: A right chest port is again seen with tip projecting over the superior vena cava near the cavoatrial junction. Lungs and pleura: No pleural effusions or pneumothorax. Lungs are clear. Mediastinum: Mediastinal contours appear normal. Heart size is normal. Bones and chest wall: No suspicious bony lesions. Overlying soft tissues appear unremarkable. IMPRESSION: No acute cardiopulmonary abnormality. Reviewed by: Vasu Hernandez MD on 10/04/2020 10:09 AM [facility] Approved by: Vasu Hernandez MD on 10/04/2020 10:09 AM [facility] Station ID: [id number]
[2020-10-04 10:17] LABS: BAND NEUTROPHILS % (MANUAL) 4 %; LYMPHOCYTES # (MANUAL) 1.6 10^3/uL (1.5-3.5); LYMPHOCYTES % (MANUAL) 35 %; METAMYELOCYTES % (MANUAL) 1 %; MONOCYTES # (MANUAL) 0.3 10^3/uL (0.0-1.0)
[2020-10-04 10:18] LABS: DIFFERENTIAL COMMENT MANUAL DIFFERENTIAL; PLATELET ESTIMATE, MANUAL DECREASED (<130,000) (NORMAL); PLATELET MORPHOLOGY NORMAL APPEARANCE (NORMAL); RBC MORPHOLOGY (MULTIPLE) NORMAL APPEARANCE (NORMAL)
[2020-10-04] MEDS ORDERED: DEXAMETHASONE 10 MG/ML VIAL IVP STA (10:59)
[2020-10-04 13:05] VITALS: BP 162/82
== END 2020-10-04 13:17 | disposition home or self-care (01) ==
LOC: ED 09:30
DX: D69.6 Thrombocytopenia, unspecified (principal); G43.009 Migraine without aura, not intractable, without status migrainosus; R07.89 Other chest pain; Z87.891 Personal history of nicotine dependence
CPT/HCPCS: 36415; 71045; 80053; 83690; 83880; 84484; 85025; 93005; 96361; 96374; 96375; 99284; J1170

== ENCOUNTER 2020-10-21 11:31 | Outpatient (CLI) | payer OTHER ==
--- NOTE | 2020-10-21 16:12 | CONSULTATION NOTE ---
Palliative Care Consultation - Referral Referring Provider: Ashley Goncalves PA-C Time of Visit: [id number] Referral setting: Home Referral Reason: High grade serous adenocarcinoma of peritonuem/Pain/anxiety - Information Sources Records reviewed: Previous records reviewed History/Review of Systems obtained from: Patient, Family (home visit so Glen could participate) Exam limitations: No limitations - History of Present Illness Brief History of Present Illness: This is a amirah 65-year-old who presents with known high-grade serous adenocarcinoma involving peritoneum, left artery, right ovary, bilateral fallopian tubes. She had presented urgently and 03/2019 with large pleural effusion and abdominal carcinomatosis, and went on for induction chemotherapy with carbotaxol x3 cycles, followed by surgical debulking in 05/2019. Her final pathology revealed serous carcinoma, high-grade involving bilateral ovaries, fallopian tube and peritoneum, and there was invasion of the omentum and vaginal cuff. She then received postop adjuvant chemotherapy with carboplatinum and Taxol again for additional 3 cycles until 09/2019, had sequela of complications of pancytopenia from chemotherapy, and also developed diverticulitis and abdominal abscesses in 08/2020. She then went on surveillance without maintenance therapy, but with rising [id number], on 07/2020 went on to have a PET scan restaging confirmed active disease in peritoneum. She was started on carboplatinum, gemcitabine, and bevacizumab on 08/23/2020, unfortunately was hospitalized for neutropenic fever, and thrombocytopenia. She unfortunately developed a severe headache on 09/26/2020, with CT negative findings, this is continued persistent but slowly improved. She was also seen in the emergency room 10/04/2020 for chest pain, and severe headache, at this point in time this is been attributed to gemcitabine, is currently on Fioricet and Compazine with good response. She is also used oxycodone with some results. In work-up for her headache, has been complicated she also had a fall and hit her head in the bathtub on 09/23. She is to start a new line of therapy Doxil/carbo/Avastin starting next week. Patient is meeting with palliative care, for symptom management, and advanced care planning. Given her recent emergency room visits as well as hospitalization, she is feeling much more vulnerable. She does understand the seriousness of her illness, though was not had discussions with oncology yet regarding prognosis. She would feel better, if she had her affairs in order, and has started working on her advance care planning and legal documents and end-of-life wishes. Medical/Surgical History - Past Medical History Cardiovascular: reports: Hypertension (new), Coronary artery disease Respiratory: reports: Shortness of breath, Other (hx of pleural effusions) Neuro: Headaches (new), Peripheral neuropathy, Tremors Endocrine/Autoimmune: reports: HyPOthyroidism GI: reports: None DATA CENTER CONSULTANT: reports: Ovarian cancer : reports: Other (hx of vulvular CA) Psych: reports: Depression, Anxiety Musculoskeletal: reports: Fatigue MRSA Hx?: No Other Past Medical History: Patient was initially diagnosed with high-grade cervical dysplasia in 1999, underwent a hysterectomy in 2005, with malignant neoplasm of her vulva, underwent partial vulvectomy with laser then with resection in January 2007. In 2015, was found to have recurrent disease on the right side of her vulva, with vulvectomy on 2016. - Past Surgical History General: reports: Cholecystectomy /DATA CENTER CONSULTANT: reports: section, Hysterectomy, Oophrectomy Cardiovascular: reports: Cardiac catheterization - Substance History Use: Uses substance without health or social issues: NONE Social History - Living Situation Living arrangement: At home Living Situation: With spouse/s.o., With family Support System: She has been with her for 30 years, they have been for 20 years. They came up from [place], she has a biological son from previous marriage, and they have 3 children they have adopted together. Her [id number] currently lives with them, they have pets. 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 Family History - Family History Family History: Mother: (prostate/bone), Cancer (rectal cancer), Father: , Cancer, Brother: Alive and Well (2 brothers estranged don't know health issues) Medications/Allergies - Medications Home Medications: Ambulatory Orders Medication Instructions Recorded Confirmed Fluoxetine HCl 40 mg PO BID 08/21/18 10/23/20 Levothyroxine [Synthroid] 75 mcg PO QDAC 08/21/18 10/23/20 Pantoprazole [Protonix] 40 mg PO DAILY 03/10/19 10/23/20 LORazepam [Ativan] 0.5 mg PO Q6H PRN #60 tablet 08/09/20 10/23/20 Olanzapine [Zyprexa] 5 mg PO UD #12 tablet MDD .with 08/30/20 10/23/20 chemo x 4 Cholecalciferol [Vitamin D3] 5,000 units PO DAILY 09/05/20 10/23/20 Celecoxib [Celebrex] 200 mg PO DAILY 09/26/20 10/23/20 Prochlorperazine [Compazine] 5 mg PO Q8H PRN #10 10/04/20 10/23/20 Butalb/Acetaminophen/Caffeine 1 each PO Q8HR PRN #15 cap 10/17/20 10/23/20 [Fioricet 50-300-40 mg Capsule] oxyCODONE [Roxicodone] 5 - 10 mg PO Q4HR PRN 10/23/20 10/23/20 - Allergies Allergies/Adverse Reactions: Allergies Allergy/AdvReac Type Severity Reaction Status Date / Time No Known Drug Allergies Allergy Verified 10/04/20 09:37 Review of Systems - Constitutional Constitutional: reports: Fatigue (persistent), Weakness, Weight loss. denies: Fever, Chills - Eyes Eyes: reports: Vision loss, Corrective lenses - Ears, Nose & Throat Ears, Nose & Throat: reports: Mouth lesions - Cardiovascular Cardiovascular: reports: Lightheadedness, Decr. exercise tolerance - Respiratory Respiratory: reports: SOB with exertion. denies: SOB at rest - Gastrointestinal Gastrointestinal: reports: Nausea (with chemotherapy), Early satiety. denies: Diarrhea - Musculoskeletal Musculoskeletal: reports: Muscle weakness - Integumentary Integumentary: reports: Dryness - Neurological Neurological: reports: General weakness, Headache (remains persistent), Numbness (residual but minimal), Other (tremors since beginning of treatment this round) - Psychiatric Psychiatric: reports: Depression, Anxiety - Endocrine Endocrine: reports: Hyperthyroidism - Hematologic/Lymphatic Hematologic/Lymph: reports: Anemia, Bruising - All Other Systems All Other Systems: reports: Reviewed and negative Physical Exam - Vital Signs Temperature: 98.1 C Pulse Rate: 79 Respiratory Rate: 18 O2 Saturation: 96 (ra @rest) Blood Pressure: 152/84 - Physical Exam General Appearance: positive: No acute distress, Alert Eyes Bilateral: positive: Normal inspection ENT: positive: Oral lesions (appear to be resolving; no s/s candidiasis) Neck: positive: Trachea midline Cardiovascular: positive: Regular rate & rhythm Respiratory: positive: No respiratory distress, Diminished in bases. negative: Wheezes, Rales, Rhonchi Abdomen: positive: Soft, Other (rounded) Skin: positive: Pallor, Dryness, Bruising Extremities: positive: No pedal edema Neurologic/Psychiatric: positive: Oriented x3, Mood/affect nml Palliative Care - POLST Patient has POLST: No Pain: Pain improved, Location (persistant headache 08/21 up to 10/19 (presented with 05/21) using alternately ibuprofen/apap; execidrin migraine; Ashley reordered fiorect-most effective) Tiredness/Fatigue: Moderate (4-6) Drowsiness/Sedation: None Nausea: Moderate (4-6) (with chemo) Anorexia: Mild (1-3) Dyspnea: Moderate (4-6) Depression: Mild (1-3) Anxiety: Mild (1-3) Feelings of wellbeing/Perceived Quality of Life: Fair, Acceptable, Improved (wit h headache improving) Sleep: Variable sleep pattern Constipation: Yes, Intermittent constipation Performance Status: Patient experiencing increased trouble with tremors, impacting her writing. She also has noticing increased trouble with balance. She has had a fall previous to her ED visit on 09/26. She is able to manage her own ADLs, ambulate around the house. - Palliative Care Discussion: Meeting with patient and , they are just starting to have conversations regarding the seriousness of her illness, and looking at advanced care planning. Up to this point in time have really not explored this, patient is feeling more vulnerable with recent hospitalizations and ED visits. Did discuss in the context of ovarian cancer, multiple treatments and looking at a more chronic disease model, but given still the severity of her illness, treatment is still palliative in nature. Counseling provided regarding looking at hoping for the best, but also preparing for otherwise. 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 She does have some advance care planning documents from her original surgery back in 2019, we did review these, she is looking at updating them particularly in the context of CODE STATUS/POLST. She does have her DPOA is her , and son is follow-up, though feels her son is in denial and may not follow her wishes. She may look at updating this as well. Her oncology/automatic corn grinder operator, told her we are "very good about killing cancer cells in ovarian cancer, but not at keeping them from coming back". She and her do have financial stressors, she is expressing her biggest concern as what will happen to him after she is gone. They are trying to plan for the future, she is looking at a company for donating her body, that minimizes expenses. Counseling provided regarding the role of palliative care, to the continuum meant to transition to hospice care when appropriate. Impression and Recommendations - Palliative Care Impression: This is a amirah 65-year-old woman with high-grade serous adenocarcinoma, recurrent involving peritoneum, left ovary, right ovary and bilateral fallopian tubes. She is pending Doxil/carbo/Avastin new regimen next week, presents with moderate symptom burden, and open to palliative care support. Palliative care to provide pain and symptom management, psychosocial support, and anticipatory guidance. Recommendations/Counseling Done: 1. Headache. Patient remains with persistent headache, but has improved. She has tried a variety of combinations of pain medications, has found the Fioricet most effective, is awaiting new prescription. Patient also has low-grade tremors, increased balance problems, no other acute neuro signs noted. We will continue to monitor. Recommended given her tremors, to consider splitting her dose of fluoxetine to 40 mg twice daily versus 80 mg in a.m. total. 2. Hypertension. Patient presents with persistent hypertension, this is a new symptom for her. Most likely attributed to her Avastin,. This may also be impacting her headaches. Encouraged to take daily blood pressures, to assist with monitoring. Will follow up with oncology, she thought hypertensive medication had been there ordered. I do not see and notes other than was is considering. 3. Anxiety. This is multifactorial, given patient's sequela of her chemo treatm ent, as well as recent ED/hospitalization. Counseling provided to normalize normal concerns given the seriousness of her illness. Explored patient's concerns also in the context advance care planning, does feel would be helpful to have further information from oncology regarding prognosis, will reach out and share this information as well. 4. Advanced care planning. Reviewed patient's current documents, plans for the future, patient's concerns. She is navigating some of the financial and legal goals, will offer palliative care forensic social worker for any short-term issues. Introduced the role of the DPOA, POLST, and will put current documents and DARYN Carias Plan to meet in 2 weeks after her first round of new chemo. 75 minutes with greater than 50% of this done in counseling regarding symptom management, role of palliative care, building rapport, exploring advanced care planning issues, and anticipatory guidance.
== END 2020-10-21 11:32 | disposition home or self-care (01) ==
LOC: PC 11:31
PROVIDERS: ATTEND Nurse Practitioner Adult Health
DX: Z51.5 Encounter for palliative care (principal); R51.9 Headache, unspecified; R25.1 Tremor, unspecified; I10 Essential (primary) hypertension; F41.9 Anxiety disorder, unspecified; C48.2 Malignant neoplasm of peritoneum, unspecified; C79.89 Secondary malignant neoplasm of other specified sites; C79.61 Secondary malignant neoplasm of right ovary; C79.82 Secondary malignant neoplasm of genital organs
CPT/HCPCS: 99345

== ENCOUNTER 2020-11-04 09:05 | Outpatient (CLI) | payer OTHER ==
--- NOTE | 2020-11-04 10:06 | CONSULTATION NOTE ---
Palliative Care Follow Up - Referral Referring Provider: Dr. Walt Howard Time of Visit: 7723-985 Referral setting: [facility] [place] Referral Reason: H/A/anxiety/ High Grade serous Ovarian CA - Information Sources Records reviewed: Previous records reviewed History/Review of Systems obtained from: Patient, Family ( [place]) Exam limitations: No limitations - History of Present Illness Update Brief HPI Update: Please see HPI 10/21/2020. 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 Her original diagnosis was in 03/2019, she had been on surveillance, but with rising Ca1 25 on 07/2020 had a PET scan which confirmed active disease in the peritoneum. She has been receiving carboplatinum and gemcitabine and a visit [facility], but was hospitalized for neutropenic fever and thrombocytopenia. She did develop severe headaches on 09/26/2020 with negative findings, but this is continue to be persistent. Originally was thought may be side effect or attributed to gemcitabine, she still has persistent headache daily, is controlling it with intermittent Excedrin migraine, with oxycodone at bedtime. It is somewhat complicated she also had a fall and hit her head on the bathtub on , given the persistence of her headache. She is to get an MRI of the brain, that is still pending. She is also pending new Doxil awaiting echo, she received a carboplatinum this last Saturday, unfortunately her Avastin had to be hold secondary to worsening hypertension. Dr. Howard did start her on losartan 50 mg and hydrochlorothiazide 12.5 mg daily. She still has had over the last couple days persistent hypertension of 154/87, 164/85, 155/89. She does present today though with 142/84 taken manually. She has had low-grade nausea, she has been taking ondansetron, recommended she change to Compazine given unknown side effect ondansetron his headache. Unfortunately patient's dog this last week, and has had several rounds of company. Patient does have high anxiety and wanting to get her end-of-life planning in place. She has move forward and got her plans made, she will be doing a body donation through Medicare, she has an interview set up for that. She is also planning family events, and going to [place], she has 4 boys, is hoping to be able to make some meaningful memories and help support them looking towards the future, recognizing the seriousness of her illness. Past Medical History: HTN (new) coronary artery disease, history of pleural effusions, headaches new, peripheral neuropathy, tremors, hypothyroidism, history of valvular cancer, depression, anxiety, fatigue Social History - Living Situation Living arrangement: At home Living Situation: With spouse/s.o., With family Support System: Lives with her amirah Sukhwinder, they have been together for 30 years and for 20. They came up from [place], she has a biological son from a previous marriage and 3 children they have adopted together. 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 Medications/Allergies - Medications Home Medications: Ambulatory Orders Medication Instructions Recorded Confirmed Fluoxetine HCl 40 mg PO BID MDD taper 60/80 qod 08/21/18 11/04/20 Levothyroxine [Synthroid] 75 mcg PO QDAC 08/21/18 11/04/20 Pantoprazole [Protonix] 40 mg PO DAILY 03/10/19 11/04/20 LORazepam [Ativan] 0.5 mg PO Q6H PRN #60 tablet 08/09/20 11/04/20 Olanzapine [Zyprexa] 5 mg PO UD #12 tablet MDD .with 08/30/20 11/04/20 chemo x 4 Cholecalciferol [Vitamin D3] 5,000 units PO DAILY 09/05/20 11/04/20 Celecoxib [Celebrex] 200 mg PO DAILY 09/26/20 11/04/20 Prochlorperazine [Compazine] 5 mg PO Q8H PRN #10 10/04/20 11/04/20 oxyCODONE [Roxicodone] 5 - 10 mg PO Q4HR PRN 10/23/20 11/04/20 Aspirin/Acetaminophen/Caffeine 1 tab PO TID PRN 11/04/20 11/04/20 [Excedrin Migraine Caplet] Hydrochlorothiazide 12.5 mg PO DAILY 11/04/20 11/04/20 Losartan [Cozaar] 50 mg PO DAILY 11/04/20 11/04/20 - Allergies Allergies/Adverse Reactions: Allergies Allergy/AdvReac Type Severity Reaction Status Date / Time No Known Drug Allergies Allergy Verified 10/04/20 09:37 Review of Systems - Constitutional Constitutional: reports: Fatigue (persistent; worse with recent chemo), Weakness, Weight loss - Eyes Eyes: reports: Vision loss (some changes; recommended see opthalmogist), Corrective lenses - Cardiovascular Cardiovascular: reports: Lightheadedness, Decr. exercise tolerance - Respiratory Respiratory: reports: SOB with exertion. denies: SOB at rest - Gastrointestinal Gastrointestinal: reports: Nausea (low grade; use olanzipine several nights; using ondansetron Breakthrough; recommended prochlerazine with h/a), Early satiety, Other (taste changes) - Genitourinary Genitourinary: reports: Frequency - Musculoskeletal Musculoskeletal: reports: Stiffness, Muscle weakness - Integumentary Integumentary: reports: Dryness, Hair changes (alopecia) - Neurological Neurological: reports: General weakness, Headache, Numbness, Other (tremors) - Psychiatric Psychiatric: reports: Depression, Anxiety - Endocrine Endocrine: reports: Hypothyroidism - Hematologic/Lymphatic Hematologic/Lymph: reports: Bruising - All Other Systems All Other Systems: reports: Reviewed and negative Physical Exam - Vital Signs Temperature: 97.7 C Pulse Rate: 77 Respiratory Rate: 18 O2 Saturation: 96 (ra @ rest) Blood Pressure: 142/84 - Physical Exam General Appearance: positive: No acute distress, Alert Eyes Bilateral: positive: Normal inspection ENT: positive: No signs of dehydration Neck: positive: Trachea midline Cardiovascular: positive: Regular rate & rhythm Respiratory: positive: No respiratory distress, Diminished in bases Abdomen: positive: Soft Skin: positive: Pallor, Dryness Extremities: positive: No pedal edema Neurologic/Psychiatric: positive: Oriented x3, Mood/affect nml Palliative Care - POLST Patient has POLST: No Pain: Pain unchanged, Location (persistent H/A pain; top of head/back of eyes; radiates to forehead), Severity (2.5/10), Comment (using oxycodone at night; execdrin migraine 1-2 x during day; has been persistent) Tiredness/Fatigue: Moderate (4-6) Drowsiness/Sedation: Moderate (4-6) Nausea: Mild (1-3) Anorexia: Mild (1-3) Dyspnea: Mild (1-3) Depression: Mild (1-3) Anxiety: Moderate (4-6) Feelings of wellbeing/Perceived Quality of Life: Good, Acceptable Sleep: Sleeps well Constipation: No Performance Status: Patient's activity is limited by her persistent fatigue and discomfort with her headache. She is able to ambulate short distances. She is independent in her ADLs. She is taking frequent naps. - Palliative Care Discussion: Meeting again with patient and her , they have started conversations regarding the seriousness of her illness she had wanted to complete her advance care planning. They had been working on financial planning, completing her advance care planning documents, she was unable to move forward on those as she had a difficult week. Did provide her the forms, addressed questions she had, they are going to continue to work on this. She is worried about putting her son is secondary until he comes to some kind of understanding of her illness. She is planning to spend some time with her family, as this is a priority for her. Results - Lab Results Lab results reviewed: Yes Impression and Recommendations - Palliative Care Impression: This is a amirah 65-year-old woman with high-grade serous adenocarcinoma, recurrent involving peritoneum bilateral ovaries and fallopian tubes. She is pending starting Doxil, and restarting Avastin when hypertension controlled. She does continue with moderate symptom burden and persistent headache. She is open to palliative care support for pain and symptom management, psychosocial support and anticipatory guidance Recommendations/Counseling Done: 1. Headache. Patient continues with persistent headache, though it has improved is still remains impacting her quality of life. She is currently using Excedrin Migraine 1-2 times a day, as well as oxycodone at bedtime. She is pending an MRI of the brain. Did follow-up with oncology clinic, would like to have it done at [facility]. Patient also has persistent tremors, these have not worsened in nature. Patient also reports worsening vision in changes, recommended she see adz worker, as this could be adding as well to her discomfort, encouraged use Compazine versus the ondansetron, as well as attempt to control her blood pressure at a better level. 2. Hypertension. Patient presents with persistent hypertension, this is new for her. It was attributed to her Avastin, she is starting losartan and hydrochlorothiazide prescribed by oncology, instructed to take her blood pressu re twice a day, will follow up next Saturday, if remain persistently high will titrate to effect, as she does want to restart her treatments. 3. Anxiety. This is multifactorial, patient is feeling somewhat better overall, as she is starting to get things in place for EOL planning. Counseling and encouragement provided for what was within her control as far as support. Did encourage daily walking, progressive ambulation program. Focus on fluids and nutrition/protien intake, as well as putting a priority on things that matter most to her. . She is planning some family get-togethers and trips, which has elevated her mood. 4. Depression. Patient wondering about coming off of her Prozac, she is on 80 mg daily. Discussed given the length of time she has been on it would need a very slow taper, she is currently on 40 twice daily, instructed to take 40 every a.m., and decreased 40 every other day in the evenings, it is long-acting and has a long half-life. We will do this for 1 month and reevaluate. 5. Advanced care planning. Reviewed work she had done, as well as what was pending for her, will continue to help her put these pieces in place, as this is an important goal for her. 45 minutes with greater than 50% of this done in counseling regarding pain and symptom management, coordination of care with oncology team, and anticipatory guidance.
== END 2020-11-04 09:06 | disposition home or self-care (01) ==
LOC: PC 09:05
PROVIDERS: ATTEND Nurse Practitioner Adult Health
DX: Z51.5 Encounter for palliative care (principal); R51.9 Headache, unspecified; I10 Essential (primary) hypertension; F41.9 Anxiety disorder, unspecified; F32.9 Major depressive disorder, single episode, unspecified; C48.2 Malignant neoplasm of peritoneum, unspecified; C56.2 Malignant neoplasm of left ovary; C56.1 Malignant neoplasm of right ovary; C57.02 Malignant neoplasm of left fallopian tube; C57.01 Malignant neoplasm of right fallopian tube; Z79.899 Other long term (current) drug therapy
CPT/HCPCS: 99215

== ENCOUNTER 2020-11-25 07:39 | Outpatient (CLI) | payer OTHER | END 2020-11-25 07:40 | disposition home or self-care (01) | LOC: DI 07:39 | PROVIDERS: ATTEND Physician Assistant | DX: I51.7 Cardiomegaly (principal) | CPT/HCPCS: 93306 ==

== ENCOUNTER 2020-11-29 09:13 | Outpatient (CLI) | payer OTHER ==
--- NOTE | 2020-11-29 11:22 | CONSULTATION NOTE ---
Palliative Care Follow Up - Referral Referring Provider: Dr. Walt Howard Time of Visit: 10:10 60 minutes Referral setting: [facility] [place] Referral Reason: High grade serous CA of peritoneum/ovaries/fallopian tubes/Fatigue/Headache - Information Sources Records reviewed: Previous records reviewed History/Review of Systems obtained from: Patient Exam limitations: No limitations - History of Present Illness Update Brief HPI Update: This is a amirah 65-year-old woman with known high-grade serous adenocarcinoma involving the peritoneum, bilateral ovaries, and fallopian tubes. Her original diagnosis was in 03/2019, she has been on surveillance with recurrence noted on 07/2020 with PET scan which confirmed active disease in peritoneum. She has been receiving carboplatinum and gemcitabine, today she will receive Doxil for the first time, she did get cleared with her echo. She also developed severe headache starting on 09/26/2020 with negative findings, she recently had an MRI of the brain, also with negative findings, for intracranial disease. She has seen the eye doctor, without any significant findings as well. As her blood pressure has improved, so has her headaches. It is still persistent though daily, is controlled with intermittent Excedrin, Fioricet is helpful if she takes it in time, and follow-up with oxycodone if persists. Patient has had some hypertension with her Avastin, she is currently on losartan 75 mg and hydrochlorothiazide 12.5 mg daily, she reports her blood pressures are running in the 120s over the 70s, she has been taking her blood pressures. She has not had any persistent nausea. We have been titrating down on her Prozac, she is tolerated this without any difficulty, will continue at the 40 mg dosing. She feels like this is a good balance. Her other most persistent side effect is been her fatigue, she has more energy in the morning, and less in the p.m. She is doing very well with her anxiety, she does have a pending trip to [place] to see her kids, she feels like after that is then she will have done what she can as far as preparing them for the future. She is also reports they have gotten a new dog, as her dog had last month, she is quite animated and doing much better. Past Medical History: Hypertension, CAD, history of pleural effusions, headaches new, peripheral neuropathy, tremors, hypothyroidism, history of valvular cancer, depression, anxiety, fatigue Social History - Living Situation Living arrangement: At home Living Situation: With spouse/s.o., With family Support System: Patient lives with her Sukhwinder, they have been together for 30 years, for 20. She has a biological son from a previous marriage, and 3 children they have adopted together. Her [id number] currently lives with them, both of them of always worked in the [employer] and [employer] industry. 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 Medications/Allergies - Medications Home Medications: Ambulatory Orders Medication Instructions Recorded Confirmed Fluoxetine HCl 40 mg PO DAILY 08/21/18 11/29/20 Levothyroxine [Synthroid] 75 mcg PO QDAC 08/21/18 11/29/20 Pantoprazole [Protonix] 40 mg PO DAILY 03/10/19 11/29/20 LORazepam [Ativan] 0.5 mg PO Q6H PRN #60 tablet 08/09/20 11/29/20 Olanzapine [Zyprexa] 5 mg PO UD #12 tablet MDD .with 08/30/20 11/29/20 chemo x 4 Cholecalciferol [Vitamin D3] 5,000 units PO DAILY 09/05/20 11/29/20 Celecoxib [Celebrex] 200 mg PO DAILY 09/26/20 11/29/20 Prochlorperazine [Compazine] 5 mg PO Q8H PRN #10 10/04/20 11/29/20 oxyCODONE [Roxicodone] 5 - 10 mg PO Q4HR PRN 10/23/20 11/29/20 Aspirin/Acetaminophen/Caffeine 1 tab PO TID PRN 11/04/20 11/29/20 [Excedrin Migraine Caplet] Hydrochlorothiazide 12.5 mg PO DAILY 11/04/20 11/29/20 Losartan [Cozaar] 75 mg PO DAILY 11/04/20 11/29/20 Butalb/Acetaminophen/Caffeine 1 - 2 cap PO Q6HR PRN 11/14/20 11/29/20 [Fioricet 50-300-40 mg Capsule] - Allergies Allergies/Adverse Reactions: Allergies Allergy/AdvReac Type Severity Reaction Status Date / Time No Known Drug Allergies Allergy Verified 11/28/20 10:29 Review of Systems - Constitutional Constitutional: reports: Fatigue (persistent), Weakness, Weight stable - Eyes Eyes: reports: Vision loss (saw opthamologist this am; using sunglasses for photosensitivity), Corrective lenses - Cardiovascular Cardiovascular: reports: Decr. exercise tolerance - Respiratory Respiratory: reports: SOB with exertion. denies: SOB at rest - Gastrointestinal Gastrointestinal: reports: Good appetite, Other (taste changes) - Genitourinary Genitourinary: reports: Frequency, Urgency - Musculoskeletal Musculoskeletal: reports: Stiffness, Muscle weakness, Joint swelling (hands/thumbs) - Integumentary Integumentary: reports: Dryness, Hair changes (alopecia) - Neurological Neurological: reports: General weakness, Headache, Numbness, Other (tremors) - Psychiatric Psychiatric: reports: Depression, Anxiety - Endocrine Endocrine: reports: Hypothyroidism - Hematologic/Lymphatic Hematologic/Lymph: reports: Bruising - All Other Systems All Other Systems: reports: Reviewed and negative Physical Exam - Vital Signs Temperature: 36.8 C Pulse Rate: 66 Respiratory Rate: 18 O2 Saturation: 97 (ra@rest) Blood Pressure: 129/80 - Physical Exam General Appearance: positive: No acute distress, Alert Eyes Bilateral: positive: Normal inspection ENT: positive: No signs of dehydration Neck: positive: Trachea midline Cardiovascular: positive: Regular rate & rhythm Respiratory: positive: No respiratory distress Abdomen: positive: Non-tender, Soft Skin: positive: Pallor, Dryness Extremities: positive: No pedal edema Neurologic/Psychiatric: positive: Oriented x3, Mood/affect nml Palliative Care - POLST Patient has POLST: No POLST Status: Full Code Pain: Pain improved, Location (h/a) Tiredness/Fatigue: Moderate (4-6) Drowsiness/Sedation: Mild (1-3) Nausea: None Anorexia: None Dyspnea: Mild (1-3) Depression: None Anxiety: Mild (1-3) Feelings of wellbeing/Perceived Quality of Life: Good, Acceptable, Improved Sleep: Sleeps well Constipation: No Performance Status: Patient able to manage her own ADLs, she is able to ambulate short distances but is limited by some of her activity tolerance. She is trying to be as active as possible, she does have a new dog, does wear out by end of day, her energy is best in the morning - Palliative Care Discussion: Patient is feeling overall better about most things, she is feeling like she is little bit more control. She did see her son in [place], is starting her first conversations with her children, feels like that was important piece to be able to move forward. She is planning a trip to [place] to finish this up, she has been working on her end-of-life plans, for her to finish signing up she needs to have a prognosis. At this point in time she is still an active treatment, and would most likely not meet the 6 to 12 months needed. She feels the door has been open for her and her have conversations that need to happen, she feels quite at peace that he knows what she would want her not wanting and feels like she can wait to further update this. She would not want to be a "no code" at this point in time, will await until further decline to consider POLST Results - Lab Results Lab results reviewed: Yes Impression and Recommendations - Palliative Care Impression: This is a amirah 65-year-old woman with high-grade serous adenocarcinoma, recurrent involving peritoneum, bilateral ovaries, and fallopian tubes. She is taking active chemotherapy, including Avastin with hypertension. This is improved on medication, her headaches are improved with her blood pressure better controlled, as well as medications currently used, though remains persistent. She continues to be open to palliative care support for pain and symptom management, psychosocial support and anticipatory guidance Recommendations/Counseling Done: 1. Headache. Patient continues with persistent headache the less in intensity, is using sunglasses with improvement. She is currently using Excedrin Migraine when not driving, and Fioricet when she is. Her MRI of her brain showed no intracranial mets. She continues with persistent tremors no crease. She did see senior linux systems engineer, with new prescription. She feels like it is improving overall. 2. Hypertension. Patient presents with improved hypertension, she is using losartan 75 mg and hydrochlorothiazide 12.5 mg. She does understand this will continue most likely through treatment, she is somewhat pill adverse, but understands particularly in the context of her headaches. 3. Anxiety. This is multifactorial, she is feeling like this is improving overall. She is feeling somewhat more in control of things, she has tolerated her decrease in Prozac to 40 mg. No further changes planned at this point in time. She does have a trip planned to [place] to see her kids, she feels like this is also important conversation have with them, and does feel like she understands what she is planning to say to them. 4. Advanced care planning. Patient this point time feels like she is taking as far she needs to, will continue to help put these pieces in place as time proceeds, she is feeling somewhat more in control. 5. Nutritional status. Patient would like to lose more weight, discussed need for adequate nutrition during treatment, but given her concerns for support, reviewed an anti-inflammatory diet with fresh fruits and vegetables, simple proteins, and no processed sugars. We also discussed continuing to walk as her activity tolerance allows. 60 minutes review of chart, labs, findings from MRI, time with patient focused on counseling, psychosocial support, pain and symptom management, and anticipatory guidance
== END 2020-11-29 09:14 | disposition home or self-care (01) ==
LOC: PC 09:13
PROVIDERS: ATTEND Nurse Practitioner Adult Health
DX: Z51.5 Encounter for palliative care (principal); R51.9 Headache, unspecified; I15.8 Other secondary hypertension; T45.1X5A Adverse effect of antineoplastic and immunosuppressive drugs, initial encounter; F41.9 Anxiety disorder, unspecified; C48.2 Malignant neoplasm of peritoneum, unspecified; C79.82 Secondary malignant neoplasm of genital organs; C79.62 Secondary malignant neoplasm of left ovary; C79.61 Secondary malignant neoplasm of right ovary
CPT/HCPCS: 99215

== ENCOUNTER 2021-01-03 11:00 | Outpatient (CLI) | payer OTHER ==
--- NOTE | 2021-01-03 17:09 | CONSULTATION NOTE ---
Palliative Care Follow Up - Referral Referring Provider: Dr. Walt Howard Time of Visit: 11:00 45 minutes Referral setting: MAC Referral Reason: Constipation/Depression/Peritoneal CA with mets - Information Sources Records reviewed: RN notes reviewed, Previous records reviewed History/Review of Systems obtained from: Patient Exam limitations: No limitations - History of Present Illness Update Brief HPI Update: This is a amirah 65-year-old woman with known high-grade serous adenocarcinoma involving the peritoneum, bilateral ovaries and fallopian tubes. She is getting ready to transition to maintenance after 2 more treatments of her carboplatinum and gemcitabine. She has been is receiving Avastin, with increase in blood pressure currently well controlled, her headache is currently resolved, she continues with persistent fatigue, no neuropathies, and is doing fairly well overall. Her understanding is most likely she will continue with Avastin and start on niraparib. One of her short-term goals was to meet with her sons, and have "[id number]" and was able to recently take a trip to [place] and feels much more in control and relaxed regarding her sharing with her family her serious illness and current condition as well as her wishes. Her anxiety is improved, her depression is managed on her current dosing, she is getting ready to transition to Medicare, concerned about cost of some medications, we did review her current list, and does feel like most likely she can transition off of Celebrex. She has been experiencing some constipation, resulting in exacerbation of her hemorrhoids. She is also to transition to a new primary care provider Dr. Clark. Past Medical History: Hypertension, CAD, history of pleural effusions, resolution of headaches, peripheral neuropathy, tremors, hypothyroidism, history of valvular cancer, depression, anxiety, fatigue, original diagnosis of her cancer was in 03/2019, with recurrence on 07/2020. Social History - Living Situation Living arrangement: At home Living Situation: With spouse/s.o., With family Support System: She lives at home with her amirah Sukhwinder, they have been together for 30 years and for 20. She has a biological son from a previous marriage and 3 children they have adopted together. 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 Medications/Allergies - Medications Home Medications: Ambulatory Orders Medication Instructions Recorded Confirmed Fluoxetine HCl 40 mg PO DAILY 08/21/18 01/04/21 Levothyroxine [Synthroid] 75 mcg PO QDAC 08/21/18 01/04/21 Pantoprazole [Protonix] 40 mg PO DAILY 03/10/19 01/04/21 LORazepam [Ativan] 0.5 mg PO Q6H PRN #60 tablet 08/09/20 01/04/21 Olanzapine [Zyprexa] 5 mg PO UD #12 tablet MDD .with 08/30/20 01/04/21 chemo x 4 Cholecalciferol [Vitamin D3] 5,000 units PO DAILY 09/05/20 01/04/21 Prochlorperazine [Compazine] 5 mg PO Q8H PRN #10 10/04/20 01/04/21 oxyCODONE [Roxicodone] 5 - 10 mg PO Q4HR PRN 10/23/20 01/04/21 Hydrochlorothiazide 12.5 mg PO DAILY 11/04/20 01/04/21 Losartan [Cozaar] 75 mg PO DAILY 11/04/20 01/04/21 Butalb/Acetaminophen/Caffeine 1 - 2 cap PO Q6HR PRN 11/14/20 01/04/21 [Fioricet 50-300-40 mg Capsule] Aspirin [Aspirin EC] 81 mg PO DAILY 01/04/21 01/04/21 - Allergies Allergies/Adverse Reactions: Allergies Allergy/AdvReac Type Severity Reaction Status Date / Time No Known Drug Allergies Allergy Verified 01/03/21 15:49 Review of Systems - Constitutional Constitutional: reports: Fatigue (remains persistent), Weakness, Weight stable - Eyes Eyes: reports: Vision loss (saw opthamologist this am; using sunglasses for photosensitivity), Corrective lenses - Ears, Nose & Throat Ears, Nose & Throat: denies: Mouth lesions - Cardiovascular Cardiovascular: reports: Decr. exercise tolerance - Respiratory Respiratory: reports: SOB with exertion. denies: SOB at rest - Gastrointestinal Gastrointestinal: reports: Nausea (managed with ondansetron), Early satiety - Genitourinary Genitourinary: reports: Frequency - Musculoskeletal Musculoskeletal: reports: Stiffness, Muscle weakness - Integumentary Integumentary: reports: Dryness, Hair changes (alopecia) - Neurological Neurological: reports: General weakness, Other (tremors). denies: Headache - Psychiatric Psychiatric: reports: Depression, Anxiety - Endocrine Endocrine: reports: Hypothyroidism - All Other Systems All Other Systems: reports: Reviewed and negative Physical Exam - Vital Signs Temperature: 35.9 C Pulse Rate: 72 Respiratory Rate: 18 Blood Pressure: 123/75 - Physical Exam General Appearance: positive: No acute distress, Alert Eyes Bilateral: positive: Normal inspection ENT: positive: No signs of dehydration Neck: positive: Trachea midline Cardiovascular: positive: Regular rate & rhythm Respiratory: positive: No respiratory distress, Diminished in bases Abdomen: positive: Non-tender, Soft, Obese Skin: positive: Pallor, Dryness Extremities: positive: No pedal edema Neurologic/Psychiatric: positive: Oriented x3, Mood/affect nml Palliative Care - POLST Patient has POLST: No Pain: No pain (headache resolved) Tiredness/Fatigue: Moderate (4-6) Drowsiness/Sedation: None Nausea: Mild (1-3) (responsive to medication) Anorexia: None Dyspnea: Mild (1-3) Depression: None Anxiety: None Feelings of wellbeing/Perceived Quality of Life: Good, Acceptable, Improved Sleep: Sleeps well Constipation: Yes, Managed Performance Status: Patient has been experiencing more fatigue, with decreased activity. She did recently travel though. She is starting back up her walking. She is able to manage her ADLs. - Palliative Care Discussion: Palliative care discussion regarding patient's short-term goal and wanting to connect with her sons regarding the seriousness of her illness and looking into the future. She feels like she had some very good talks, feels much more relaxed regarding this, had a very nice visit. She is feeling more in control, feels more settled about impending decisions, and is hoping both for quality and quantity of life, but does understand the seriousness of her illness. We did discuss completing now that she has had her conversations, her advanced care planning documents to have these on record. We will address these at next visit. Results - Lab Results Lab results reviewed: Yes Impression and Recommendations - Palliative Care Impression: This is a amirah 65-year-old woman with high-grade serous adenocarcinoma recurrent involving peritoneum bilateral ovaries and fallopian tubes. She is currently on carboplatinum/gemcitabine with Avastin. Her headaches are resolved, her blood pressure has been controlled, she is slightly anemic and feeling more fatigued. She is having some issues regarding constipation,. Palliative care continue provide support for pain and symptom management, psychosocial support and anticipatory guidance Recommendations/Counseling Done: 1. Headache. Patient reports headache has resolved, she saw the dredging inspector with new prescription, she feels like this is improved overall. 2. Hypertension. Patient reports blood pressure has been in good range, No adjustments needed. 3. Constipation. Patient's been instructed to use MiraLAX 17 g 1 capful daily in 4 ounces of water, counseling provided regarding titration from one half capful to up to twice a day if needed. Goal for soft daily bowel movement. Discussed management of hemorrhoid as well, is using external hemorrhoid cream, encouraged to obtain internal prep H suppositories and use after bowel movements and/or on a daily basis. 4. Chronic pain. Patient has been on Celebrex mostly for chronic osteoarthritic pain, reports this is improved has she is not working and on her feet/hips so much. She is wanting to simplify medication schedule, discussed decreasing to every other day for about 10 days then discontinuing. Also encouraged to increase ambulation and activity. 5. Nutrition. Patient is very much interested in better nutrition, anti- inflammatory diet, as well as weight loss. Referral to dietitian made. 6. Advanced care planning. Patient has met with her sons, feels ready to complete her documentation, is feeling better overall as far as feeling more in control and less distress. Will complete her paperwork, and bring at next visit. 45 minutes with review of oncology notes, labs, [id number] time, counseling for symptom management, coordination of care with oncology team
== END 2021-01-03 11:01 | disposition home or self-care (01) ==
LOC: PC 11:00
PROVIDERS: ATTEND Nurse Practitioner Adult Health
DX: Z51.5 Encounter for palliative care (principal); I10 Essential (primary) hypertension; K59.00 Constipation, unspecified; M19.90 Unspecified osteoarthritis, unspecified site; C48.2 Malignant neoplasm of peritoneum, unspecified; C79.62 Secondary malignant neoplasm of left ovary; C79.61 Secondary malignant neoplasm of right ovary; C79.82 Secondary malignant neoplasm of genital organs; Z79.899 Other long term (current) drug therapy
CPT/HCPCS: 99214

== ENCOUNTER 2021-01-31 09:43 | Outpatient (CLI) | payer OTHER ==
--- NOTE | 2021-01-31 17:12 | CONSULTATION NOTE ---
Palliative Care Follow Up - Referral Referring Provider: Dr. Walt Howard Time of Visit: 10:00 45 minutes Referral setting: MAC Referral Reason: Constipation/Depression Peritoneal CA with mets - Information Sources Records reviewed: RN notes reviewed, Previous records reviewed History/Review of Systems obtained from: Patient Exam limitations: No limitations - History of Present Illness Update Brief HPI Update: This is a amirah 65-year-old woman with known high-grade serous adenocarcinoma involving the peritoneum, bilateral ovaries, and fallopian tubes. She is completing her Doxil/carboplatinum/Avastin today, and then will continue on maintenance Avastin every 2 weeks. She has been having some cumulative fatigue, intermittent nausea, her hypertension though is well controlled currently and attributed to her Avastin. Of concern, she has developed some anal drainage. She had some constipation on visit last month, and initiated MiraLAX and intermittent senna, with better control. But developed a couple weeks ago's some bloody drainage, denies any pain, sharp shooting pains, any smell. Reports is serous mixed with blood, with some rectal bleeding after stooling. She was given some Proctofoam, but has not seen any improvement in the amount or change in consistency, nor has she noticed any worsening. Patient's mood is good, she is bright and interactive, she has met her goals of having conversations with her children regarding her end-of-life wishes, living with a serious illness, and has completed her advance care planning documents. Past Medical History: Hypertension, CAD, history of pleural effusions, resolution of headaches attributed to gemcitabine, peripheral neuropathy, intermittent tremors, hypothyroidism, history of valvular cancer, depression, anxiety, fatigue, original cancer diagnosis 03/2019, with recurrence 07/2020 Social History - Living Situation Living arrangement: At home Living Situation: With spouse/s.o., With family Support System: Patient lives with her amirah Sukhwinder, they have been together 30 years, for 20. She is a biological son from previous marriage, and 3 children's that they adopted together. They are currently living with her [id number], had originally come to help care for her. They are looking at possibly moving. 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 She will be transitioning over to Medicare in February, is looking forward to better insurance coverage. Medications/Allergies - Medications Home Medications: Ambulatory Orders Medication Instructions Recorded Confirmed Fluoxetine HCl 40 mg PO DAILY 08/21/18 01/31/21 Levothyroxine [Synthroid] 75 mcg PO QDAC 08/21/18 01/31/21 Pantoprazole [Protonix] 40 mg PO DAILY 03/10/19 01/31/21 LORazepam [Ativan] 0.5 mg PO Q6H PRN #60 tablet 08/09/20 01/31/21 OLANZapine [Zyprexa] 5 mg PO UD #12 tablet MDD .with 08/30/20 01/31/21 chemo x 4 Cholecalciferol [Vitamin D3] 5,000 units PO DAILY 09/05/20 01/31/21 Prochlorperazine [Compazine] 5 mg PO Q8H PRN #10 10/04/20 01/31/21 oxyCODONE [Roxicodone] 5 - 10 mg PO Q4HR PRN 10/23/20 01/31/21 Losartan [Cozaar] 75 mg PO DAILY 11/04/20 01/31/21 hydroCHLOROthiazide 12.5 mg PO DAILY 11/04/20 01/31/21 [Hydrochlorothiazide] Butalb/Acetaminophen/Caffeine 1 - 2 cap PO Q6HR PRN 11/14/20 01/31/21 [Fioricet 50-300-40 mg Capsule] Aspirin [Aspirin EC] 81 mg PO DAILY 01/04/21 01/31/21 Senna [Senokot] 1 - 2 tab PO DAILY PRN 01/31/21 01/31/21 polyethylene glycoL 3350 [Miralax] 17 gm PO .Q2DAYS 01/31/21 01/31/21 - Allergies Allergies/Adverse Reactions: Allergies Allergy/AdvReac Type Severity Reaction Status Date / Time No Known Drug Allergies Allergy Verified 01/30/21 14:30 Review of Systems - Constitutional Constitutional: reports: Fatigue (remains persistent), Weakness, Weight loss (reports 2-3 pound wt. loss with walking more) - Eyes Eyes: reports: Vision loss (saw opthamologist this am; using sunglasses for photosensitivity), Corrective lenses - Ears, Nose & Throat Ears, Nose & Throat: denies: Mouth lesions - Cardiovascular Cardiovascular: reports: Decr. exercise tolerance - Respiratory Respiratory: reports: SOB with exertion. denies: SOB at rest - Gastrointestinal Gastrointestinal: reports: Nausea (managed with ondansetron remains persistent), Early satiety, Other (new anal drainage) - Genitourinary Genitourinary: reports: Frequency - Musculoskeletal Musculoskeletal: reports: Stiffness, Muscle weakness - Integumentary Integumentary: reports: Dryness, Hair changes (alopecia hair is growing back) - Neurological Neurological: reports: General weakness (doing more walking), Other (tremors). denies: Headache - Psychiatric Psychiatric: reports: Depression, Anxiety - Endocrine Endocrine: reports: Hypothyroidism - Hematologic/Lymphatic Hematologic/Lymph: reports: Bruising (remains spontaneous but less) - All Other Systems All Other Systems: reports: Reviewed and negative Physical Exam - Physical Exam General Appearance: positive: No acute distress, Alert Eyes Bilateral: positive: Normal inspection ENT: positive: No signs of dehydration Neck: positive: Trachea midline Cardiovascular: positive: Regular rate & rhythm Respiratory: positive: No respiratory distress, Breath sounds nml Abdomen: positive: Non-tender, Soft Skin: positive: Pallor, Dryness Extremities: positive: No pedal edema Neurologic/Psychiatric: positive: Oriented x3, Mood/affect nml Palliative Care - POLST Patient has POLST: No POLST Status: Full Code (Discussion at this time would be Full Code; if recurrent dx or worsening will revisit) Pain: Pain improved, Location (h/a; joint pain without flare titrating off celebrex) Tiredness/Fatigue: Moderate (4-6) Drowsiness/Sedation: None Nausea: Mild (1-3) Anorexia: None Dyspnea: Mild (1-3) Depression: None Anxiety: None, Comment (much improvement with improved symptoms and EOL planning completed) Feelings of wellbeing/Perceived Quality of Life: Excellent, Improved Sleep: Sleeps well Constipation: Yes, Managed Performance Status: Activity tolerance remains decreased, but is making an effort to do more walk ing, she is able to manage her ADLs. She is pacing herself, but is feeling somewhat stronger. - Palliative Care Discussion: Patient had revisited her advanced care directive, that she had filled out in 2019, she is designated her DPOA as her [place] [phone], and second person would be her son Ronald Simon [phone]. We reviewed her ch oices, as far as what is most important to her, which is to be independent, to at home, at this point if she would consider life support treatments that might help her support her if she were to be able to recover from an acute illness or condition, but does not want to stay on those if she has recurrent or persistent disease or will not return to her previous level of functioning. She would want to donate her organs, does not want an autopsy, and has made arrangements. We did discuss at length DNR versus attempt resuscitation, at this point in her trajectory, she is not ready for a DN AR/POLST. She does understand that this transition point may come in the future depending on changes in her health or disease. She has already started some reflection on what she may or may not except in the future, if she were to have recurrent disease She is quite at peace now that she has had these conversations with her family, and put her end-of-life plans in place. She is looking forward to transitioning to more of a maintenance plan, and setting some goals for summer for possible move to their own place. Results - Lab Results Lab results reviewed: Yes Lab and Imaging Results: WBC 5.4, hemoglobin 11.3, hematocrit 34.9, platelet count 89,000, neutrophil count 1.8 Impression and Recommendations - Palliative Care Impression: This is a amirah 65-year-old woman with high-grade serous adenocarcinoma, recurrent involving peritoneum, bilateral ovaries, fallopian tubes. She is currently completing her carboplatinum/Doxil/Avastin and will be transitioning to maintenance Avastin every 2 weeks. She is pending restaging scans. She continues with persistent fatigue, anemia, her depression is controlled, and headaches are resolved. She is doing better with her constipation, though now has developed some anal drainage. Palliative care continue provide support for pain and symptom management, psychosocial support, and anticipatory guidance. Recommendations/Counseling Done: 1. Hypertension. Patient reports blood pressures have been in good range, no adjustments needed. Counseling provided regarding need to continue medication as long as continuing Avastin. Patient is wanting to decrease her pill burden, reviewed can revisit at that point in time discontinues Avastin. 2. Constipation. Patient's constipation is better controlled with MiraLAX, intermittent use of senna. She did develop some anal drainage, serous with bleeding. This is remained persistent and not improving, over the last week and a half. She did go to the walk-in clinic, has been using Proctofoam without much improvement. Drainage is just small amount on pad, serosanguineous after stools. Counseling provided regarding more aggressive use of topical steroid, as well as after evacuation, using Anusol suppositories. Patient counseled if not improved in a week, to notify me. Also reviewed signs and symptoms of worsening concern, with change in drainage, pain, fever, or amount. She will give me an update next week, she is pending restaging scan, concern includes fistula or related to her disease. She does have history of diverticulitis as well. 3. Chronic pain. Patient has been on Celebrex for chronic osteoarthritic pain, she had wanted to titrate off of this, has been decreasing without any increase in her pain. She also has been increasing her ambulation and activity, has tolerated discontinuation,. 4. Depression. Patient currently doing well, she feels her anxiety has decreased with her end-of-life planning, she feels at peace now that she is spoken with her family regarding her wishes and just the seriousness of her illness overall. She is looking forward to changes in the future, no changes made to her current regimen. 5. Advanced care planning. The patient had new documents, reviewed her old Document she completed in 05/2019, they are still reflective of her wishes. At this point in time she would accept resuscitation, she is not ready to transition to a POLST/DN AR. We did discuss the threshold for that for her, it would be recurrent or worsening disease, at this point she is doing fairly well, and feels she would accept hospitalization or interventions to improve her quality life as well as prolong her life. Document copy taken, and put in medical record.She does understand the seriousness of her illness, and we have agreed to revisit this on a regular basis to be reflective of her current goals. 45 minutes with review of records, labs, coordination of care with oncology team, [id number] with patient, counseling provided.
== END 2021-01-31 09:44 | disposition home or self-care (01) ==
LOC: PC 09:43
PROVIDERS: ATTEND Nurse Practitioner Adult Health
DX: Z51.5 Encounter for palliative care (principal); I15.8 Other secondary hypertension; T45.1X5A Adverse effect of antineoplastic and immunosuppressive drugs, initial encounter; K59.00 Constipation, unspecified; K62.89 Other specified diseases of anus and rectum; M19.91 Primary osteoarthritis, unspecified site; F32.9 Major depressive disorder, single episode, unspecified; C48.2 Malignant neoplasm of peritoneum, unspecified; C56.2 Malignant neoplasm of left ovary; C56.1 Malignant neoplasm of right ovary; C57.02 Malignant neoplasm of left fallopian tube; C57.01 Malignant neoplasm of right fallopian tube; Z79.899 Other long term (current) drug therapy
CPT/HCPCS: 99215

== ENCOUNTER 2021-02-14 12:26 | Outpatient (CLI) | payer MEDICARE, OTHER ==
--- NOTE | 2021-02-14 15:15 | CONSULTATION NOTE ---
Palliative Care Follow Up - Referral Referring Provider: Dr. Walt Howard Time of Visit: 12:45 45 minutes [place] [facility] [place] Reason: Rectal Bleeding/ High grade Serous adenocarinoma/ HTN - Information Sources Records reviewed: Previous records reviewed History/Review of Systems obtained from: Patient Exam limitations: No limitations - History of Present Illness Update Brief HPI Update: This is a amirah 65-year-old woman with known high-grade serous adenocarcinoma involving the peritoneum, bilateral ovaries, and fallopian tubes. She has completed her Doxil/carboplatinum/Avastin as of 02/02. She was to have maintenance Avastin, every 2 weeks. Unfortunately she had developed some anal drainage, had had some constipation on the last couple visits, had been initiated on MiraLAX and intermittent senna and reports has been having good control. She developed about mid January some bloody drainage, has been to urgent care, had had some rectal bleeding after stooling, and was given Proctofoam without much improvement in change or consistency. Last week she reports it had improved some, but yesterday and last night, she had bright red bleeding, without stooling, which is passing gas. She was passing small clots, bright red blood in it was concerned. She does have pain and discomfort with sitting, is much more comfortable laying. She has no noted external hemorrhoid, patient does have a history of valvular cancer, and had some concern given the drainage though serous of possible fistula. She reports she spiked a temp 100.8 on Saturday, but resolved after a few hours and has not recurred, denies fever, chill, dysuria, cough or signs or symptoms of infection today. Patient is also developed increased heartburn symptoms, she is on Protonix. She has had an increase in nausea, which is of surprised that she has not currently on chemo over the last few days. She has been controlling this with twice a day ondansetron, and no vomiting. She has been able to eat and drink, but is appropriately concerned over her persistent symptoms. She had also developed some right rib pain, is tender to palpation over mid thoracic area, does appear to be small amount of swelling. She has also had some increased dizziness, denies any dysuria, on exam she does have right upper quadrant tenderness with deep palpation. She had also developed bruising bilaterally in her thighs, as well as right rib area. Her CBC did reveal low platlets of 27,000, as well as other decreased counts, most likely attributed to marita no significant bleeding but hgb 9.1 from 11.3 01/30. Had reached out to the oncologist Dr. VICTOR M MITTAL this morning regarding bleeding, had been directed to hold Avastin, follow-up with surgery referral, and obtain CBC/CMP. Past Medical History: Hypertension exacerbated by Avastin, CAD, history of pleural effusions, resolution of headaches and tremors attributed to gemcitabine, peripheral neuropathy, hypothyroidism, history of valvular cancer s/p surgery, depression, anxiety, fatigue, original cancer diagnosis of high-grade serous adenocarcinoma 03/2019, with recurrence 07/2020 Social History - Living Situation Living arrangement: At home Living Situation: With spouse/s.o., With family Support System: Patient lives with her amirah Sukhwinder, they have been together for 30 years, for 20. She has a biological son from previous marriage and 3 children they have adopted together.. They are currently living with [id number], they originally come to help care for her and then she got ill.. 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 She will be transitioned now to Medicare, and is looking forward to better insurance coverage and less issues with Pre auths. Medications/Allergies - Medications Home Medications: Ambulatory Orders Medication Instructions Recorded Confirmed Fluoxetine HCl 40 mg PO DAILY 08/21/18 02/14/21 Levothyroxine [Synthroid] 75 mcg PO QDAC 08/21/18 02/14/21 Pantoprazole [Protonix] 40 mg PO BID 03/10/19 02/14/21 LORazepam [Ativan] 0.5 mg PO Q6H PRN #60 tablet 08/09/20 02/14/21 Cholecalciferol [Vitamin D3] 5,000 units PO DAILY 09/05/20 02/14/21 Prochlorperazine [Compazine] 5 mg PO Q8H PRN #10 10/04/20 02/14/21 oxyCODONE [Roxicodone] 5 - 10 mg PO Q4HR PRN 10/23/20 02/14/21 Losartan [Cozaar] 75 mg PO DAILY 11/04/20 02/14/21 hydroCHLOROthiazide 12.5 mg PO DAILY 11/04/20 02/14/21 [Hydrochlorothiazide] Aspirin [Aspirin EC] 81 mg PO DAILY 01/04/21 02/14/21 Senna [Senokot] 1 - 2 tab PO DAILY PRN 01/31/21 02/14/21 polyethylene glycoL 3350 [Miralax] 17 gm PO .Q2DAYS 01/31/21 02/14/21 Docusate Sodium 100Mg Capsule 100 mg PO DAILY 02/14/21 02/14/21 [Colace 100Mg Capsule] - Allergies Allergies/Adverse Reactions: Allergies Allergy/AdvReac Type Severity Reaction Status Date / Time No Known Drug Allergies Allergy Verified 01/30/21 14:30 Review of Systems - Constitutional Constitutional: reports: Fatigue (worsening over last couple of weeks), Weakness (not able to walk as far as was doing), Weight loss (reports 2-3 pound wt. loss with walking more) - Eyes Eyes: reports: Vision loss (saw opthamologist this am; using sunglasses for photosensitivity), Corrective lenses - Ears, Nose & Throat Ears, Nose & Throat: denies: Mouth lesions - Cardiovascular Cardiovascular: reports: Lightheadedness, Decr. exercise tolerance - Respiratory Respiratory: reports: SOB with exertion. denies: Cough, SOB at rest - Gastrointestinal Gastrointestinal: reports: Nausea (managed with ondansetron twice a day; sometimes lorazepam if worsens;), Early satiety, Other (see HPI; bloody drainage in last 24 hours). denies: Constipation (managing soft stool with meds) - Genitourinary Genitourinary: reports: Frequency. denies: Dysuria, Urgency, Hematuria - Musculoskeletal Musculoskeletal: reports: Back pain (new right lower thoracic area), Muscle weakness - Integumentary Integumentary: reports: Dryness, Hair changes (alopecia hair is growing back) - Neurological Neurological: reports: General weakness (doing more walking), Other (tremors). denies: Headache - Psychiatric Psychiatric: reports: Depression, Anxiety - Endocrine Endocrine: reports: Hypothyroidism - Hematologic/Lymphatic Hematologic/Lymph: reports: Bruising (new areas bilat inner thighs; right rib area) - All Other Systems All Other Systems: reports: Reviewed and negative Physical Exam - Vital Signs Pulse Rate: 68 (sitting; standing 82) Respiratory Rate: 18 O2 Saturation: 98 (ra @ rest) Blood Pressure: 125/73 (sitting; standing 133/67) - Physical Exam General Appearance: positive: No acute distress, Alert, Anxious (regarding bleeding) Eyes Bilateral: positive: Normal inspection ENT: positive: No signs of dehydration Neck: positive: Trachea midline Cardiovascular: positive: Regular rate & rhythm Respiratory: positive: No respiratory distress, Breath sounds nml Abdomen: positive: Soft, Tenderness (right upper quadrant with deep palpation) Skin: positive: Pallor, Dryness, Bruising Extremities: positive: No pedal edema Neurologic/Psychiatric: positive: Oriented x3, Mood/affect nml Palliative Care - POLST Patient has POLST: No POLST Status: Full Code Pain: Location (new pain right lower back area feels like "muscle pull" RUQ with palpation; difficult sitting) Tiredness/Fatigue: Severe (7-10) (worsening over this last week) Drowsiness/Sedation: Mild (1-3) Nausea: Severe (7-10) Anorexia: None Dyspnea: Moderate (4-6) Depression: None Anxiety: None Feelings of wellbeing/Perceived Quality of Life: Fair Sleep: Sleeps well Constipation: Yes, Managed Performance Status: Patient is independent, she is ambulatory has found though she cannot ambulate as long as she had been she been able to walk her dogs, and now has to turn around sooner than before. She is finding she is getting somewhat more breathless, and needing more frequent rest periods and noted increased fatigue. - Palliative Care Discussion: Patient has been doing fairly well emotionally, she is a little anxious regarding this new set of symptoms, she was just getting finished with her chemotherapy and moving on to maintenance Avastin. We did complete her advance care directives last week, she feels at peace as far as having taking care of things regarding her end-of-life planning. We will continue to follow for support. Results - Lab Results Lab results reviewed: Yes Lab and Imaging Results: Patient's chemistries look fine, WBC 3.8, RBC 2.71, hemoglobin 9.1, hematocrit 28, platelets 27, neutrophils 1.4 Impression and Recommendations - Palliative Care Impression: This is a amirah 65-year-old woman with high-grade serous adenocarcinoma, r ecurrent involving peritoneum, bilateral ovarian is, and fallopian tubes. She is currently completed her carboplatinum/Doxil/Avastin, and transitioning to maintenance Avastin every 2 weeks, unfortunately this will be held today. She is pending restaging scans, she has developed rectal bleeding, GERD, her constipation is currently controlled. She does present with some increased discomfort and pain, and worsening fatigue. Palliative care continue provide support for pain and symptom management, psychosocial support, coordination of care, and anticipatory guidance. Recommendations/Counseling Done: 1. Pancytopenia. Patient most likely with slow to recover marita, but is at high risk for further bleeding with platelets 27,000, and concern for dropping hemoglobin. Patient scheduled for labs in 2 weeks, hopefully will see the surgeon in the meantime. Patient knows to contact oncology or myself for worsening symptoms and can recheck labs. 2. Rectal bleeding. Patient presents with some acute bright red bleeding, worsening GERD, concern for fistula versus hemorrhoid versus recurrent disease. Follow-up with Dr. VICTOR M MITTAL, will make a referral to surgery, for further work-up. Patient aware to seek emergent help, if increased rectal bleeding, or worsening pain. 3. Constipation. Patient's constipation is currently controlled, she is having soft stools regularly with MiraLAX every 2 to 3 days and daily stool softener. She has been using her topical steroid as well as monitoring, had been improving but now worsened. 4. Anxiety. Patient is doing fairly well overall, she does have some increased anxiety with recent bleeding. She has had some decreased anxiety with her end-of-life planning and feels at peace as far as having taking care of things. She is looking forward to hopefully transitioning to maintenance treatment, but awaiting final outcome of current work-up. 5. Hypertension. Patient's blood pressures have been in good range, is currently on hypertensive medication secondary to Avastin. She supposedly will still continue with Avastin, can revisit at the time discontinues Avastin, patient would like to decrease pill burden. 6. GERD. She reports increased nausea and discomfort, is "eating Tums". We will go ahead and increase her Protonix to twice daily, pending surgical evaluation. 7. Advanced care planning. Patient has completed documents, at this point in time she would accept resuscitation, she is not ready to transition to a POLST/DN AR. She does understand the seriousness of her illness, and we revisit goals of care on a regular basis. 45 minutes with review of records, labs, coordination of care with oncology, follow-up on surgical referral, [id number] for examination, and anticipatory guidance.
== END 2021-02-14 12:27 | disposition home or self-care (01) ==
LOC: PC 12:26
PROVIDERS: ATTEND Nurse Practitioner Adult Health
DX: Z51.5 Encounter for palliative care (principal); D61.818 Other pancytopenia; K62.5 Hemorrhage of anus and rectum; K21.9 Gastro-esophageal reflux disease without esophagitis; K59.00 Constipation, unspecified; F41.9 Anxiety disorder, unspecified; I10 Essential (primary) hypertension; C48.2 Malignant neoplasm of peritoneum, unspecified; C56.2 Malignant neoplasm of left ovary; C56.1 Malignant neoplasm of right ovary; C57.02 Malignant neoplasm of left fallopian tube; C57.01 Malignant neoplasm of right fallopian tube
CPT/HCPCS: 99215

== ENCOUNTER 2021-02-23 15:37 | Outpatient (CLI) | payer MEDICARE, OTHER ==
[2021-02-23 15:52] LABS: BASOPHILS % (AUTO) 0.5 %; HCT - HEMATOCRIT 30.8 % (37.0-47.0); HGB - HEMOGLOBIN 10.2 g/dL (12.0-16.0); LYMPHOCYTES # (AUTO) 2.3 10^3/uL (1.5-3.5); LYMPHOCYTES % (AUTO) 39.4 %; MEAN CORPUSCULAR HEMOGLOBIN 34.9 pg (27.0-31.0); MEAN CORPUSCULAR HGB CONC 33.1 g/dL (32.0-36.0); MEAN CORPUSCULAR VOLUME 105.5 fL (81.0-99.0); MEAN PLATELET VOLUME 11.7 fL (7.9-10.8); MONOCYTES # (AUTO) 1.1 10^3/uL (0.0-1.0); MONOCYTES % (AUTO) 19.3 %; NEUTROPHILS # (AUTO) 2.3 10^3/uL (1.5-6.6); NEUTROPHILS % (AUTO) 40.5 %; NRBC ABSOLUTE COUNT (AUTO) 0.04 x10^3/uL; NUCLEATED RED BLOOD CELLS AUTO 0.7 /100WBC; PLT - PLATELET COUNT 38 10^3/uL (130-450); RED BLOOD COUNT 2.92 10^6/uL (4.20-5.40); RED CELL DISTRIBUTION WIDTH 18.7 % (12.0-15.0); WHITE BLOOD COUNT 5.8 x10^3/uL (4.8-10.8)
[2021-02-23 16:03] LABS: CALCIUM 9.5 mg/dL (8.5-10.3); CREATININE 1.5 mg/dL (0.4-1.0); POTASSIUM 4.2 mmol/L (3.5-5.0)
== END 2021-02-23 15:38 | disposition home or self-care (01) ==
LOC: LAB 15:37
PROVIDERS: ATTEND Nurse Practitioner Adult Health
DX: C48.2 Malignant neoplasm of peritoneum, unspecified (principal); Z79.899 Other long term (current) drug therapy
CPT/HCPCS: 36415; 80048; 85025

== ENCOUNTER 2021-03-29 15:27 | Outpatient (CLI) | payer MEDICARE, OTHER ==
--- NOTE | 2021-03-29 15:47 | XRAY Report ---
PROCEDURE: Chest 2 View X-Ray INDICATIONS: WORSENING SOB, DRY COUGH, HX PLEURAL EFFUSION, TECHNIQUE: 2 view(s) of the chest. COMPARISON: 10/04/2020 chest radiograph and 02/21/2021 CT chest. FINDINGS: Surgical changes and devices: None. Lungs and pleura: No pleural effusion or pneumothorax. No focal airspace opacity. Mediastinum: Mediastinal contours are normal. Heart size is normal. Bones and chest wall: No suspicious bony abnormalities. Soft tissues appear unremarkable. IMPRESSION: No acute cardiopulmonary process demonstrated radiographically. Reviewed by: Saeed Mooney MD on 03/29/2021 3:46 PM PDT Approved by: Saeed Mooney MD on 03/29/2021 3:46 PM PDT Station ID: [id number]
== END 2021-03-29 15:28 | disposition home or self-care (01) ==
LOC: DI 15:27
PROVIDERS: ATTEND Nurse Practitioner Adult Health
DX: R06.02 Shortness of breath (principal); R05 Cough; Z87.09 Personal history of other diseases of the respiratory system

== ENCOUNTER 2021-05-01 12:58 | Outpatient (CLI) | payer MEDICARE, OTHER ==
--- NOTE | 2021-05-01 16:57 | CONSULTATION NOTE ---
Palliative Care Follow Up - Referral Referring Provider: Dr. Walt Howard Time of Visit: 1315 Referral setting: [facility] – [place], [place] Referral Reason: Rectal Bleeding/GERD/Ovarian CA - Information Sources Records reviewed: RN notes reviewed, Previous records reviewed History/Review of Systems obtained from: Patient Exam limitations: No limitations - History of Present Illness Update Brief HPI Update: This is a amirah 66-year-old woman with known high-grade serous adenocarcinoma involving peritoneum, left ovary, right ovary and bilateral fallopian tubes. She has completed her Doxil/carboplatinum/Avastin as of 02/02, she had in February some rectal bleeding, had a endoscope that did not show anything significant other than irritation, with her low platelets and resolution of this is improved. She is considered in remission, related to her Ca1 [address] scan she has 02/21/2021. She has had her niraparib 300 mg daily on hold secondary to persistent thrombocytopenia, today comes back at 101,000 and she will restart. Her bevacizumab had been held secondary rectal bleeding, she had a significant break from her treatments and has felt fabulous for 2 weeks the two weeks prior to restarting the Bevacizumab. Unfortunately over the last week, she is felt more poorly, with increasing fatigue, and last night had recurrent rectal blee ding. She reports it probably soaked about 1 menses pad, today is just spotting with a few clots and is slowing down. She reports this was not exacerbated by her bowels, she has been keeping her stools soft. She denies any straining or previous bleeding had been doing fairly well overall. She is attributing this to the Avastin, and is due next week. The other symptom that has resolved is her shortness of breath, we had gotten a chest x-ray secondary to worsening and did not show pneumonitis. Her counts have remained fairly persistent but low. She reports she is also started to develop some abdominal pain and back pain over the last few days. She has continued to have persistent nausea, using the ondansetron. Unfortunately her Nexium was not covered by her insurance, so she has been without and only taking Tums. She would like to reorder another PPI, to address cost issues. Her anxiety is improving as she is getting ready most likely to move, this would decrease her stress significantly, as she is currently living with her [id number]. She has had some persistent fatigue over this last week, but otherwise had been doing much better with increased walking up to 1 mile 4 times a week. Past Medical History: Hypertension exacerbated by Avastin, CAD, history of pleural effusions, resolution of headaches and tremors attributed to gemcitabine, peripheral neuropathy, hypothyroidism, history of valvular cancer s/p surgery, depression, anxiety, fatigue, original cancer diagnosis of high-grade serous adenocarcinoma 03/2019 with recurrence 07/2020 Social History - Living Situation Living arrangement: At home Living Situation: With spouse/s.o., With family Support System: Patient and her currently living with her [id number], she has switched insurance to Medicare this should help her financially. She is getting ready to move hopefully, and is looking forward to having their own place. She has herself still doing a few hours of caregiving.She and her been together for 30 years, for 20. She has a biological son from a previous marriage and 3 children they have adopted together. 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 Medications/Allergies - Medications Home Medications: Ambulatory Orders Medication Instructions Recorded Confirmed Fluoxetine HCl 40 mg PO DAILY 08/21/18 05/01/21 Levothyroxine [Synthroid] 75 mcg PO QDAC 08/21/18 05/01/21 LORazepam [Ativan] 0.5 mg PO Q6H PRN #60 tablet 08/09/20 05/01/21 Cholecalciferol [Vitamin D3] 5,000 units PO DAILY 09/05/20 05/01/21 Prochlorperazine [Compazine] 5 mg PO Q8H PRN #10 10/04/20 05/01/21 oxyCODONE [Roxicodone] 5 - 10 mg PO Q4HR PRN 10/23/20 05/01/21 Losartan [Cozaar] 75 mg PO DAILY 11/04/20 05/01/21 Aspirin [Aspirin EC] 81 mg PO DAILY 01/04/21 05/01/21 Senna [Senokot] 1 - 2 tab PO DAILY PRN 01/31/21 05/01/21 polyethylene glycoL 3350 [Miralax] 17 gm PO .Q2DAYS 01/31/21 05/01/21 Docusate Sodium 100Mg Capsule 100 mg PO DAILY 02/14/21 05/01/21 [Colace 100Mg Capsule] Niraparib Tosylate [Zejula] 300 mg PO DAILY MDD restarting 03/09/21 05/01/21 today 05/01 Omeprazole 40 mg PO DAILY 05/01/21 05/01/21 - Allergies Allergies/Adverse Reactions: Allergies Allergy/AdvReac Type Severity Reaction Status Date / Time No Known Drug Allergies Allergy Verified 02/27/21 16:07 Review of Systems - Constitutional Constitutional: reports: Fatigue (had improved; last few days worse), Weight loss (reports 2-3 pound wt. loss with walking more 80.6) - Eyes Eyes: reports: Vision loss (saw opthamologist this am; using sunglasses for photosensitivity), Corrective lenses - Respiratory Respiratory: reports: SOB with exertion (improved over last several weeks). denies: Cough, SOB at rest - Gastrointestinal Gastrointestinal: reports: Nausea (managed with ondansetron twice a day; sometimes lorazepam if worsens; remains persistent), Early satiety. denies: Constipation (managing soft stool with meds) - Genitourinary Genitourinary: reports: Frequency. denies: Dysuria, Urgency, Hematuria - Musculoskeletal Musculoskeletal: reports: Muscle weakness - Integumentary Integumentary: reports: Dryness, Hair changes (hair is growing back) - Neurological Neurological: reports: General weakness (doing more walking), Other (tremors). denies: Headache - Psychiatric Psychiatric: reports: Depression, Anxiety - Endocrine Endocrine: reports: Hypothyroidism - All Other Systems All Other Systems: reports: Reviewed and negative Physical Exam - Vital Signs Pulse Rate: 69 Respiratory Rate: 18 Blood Pressure: 117/70 - Physical Exam General Appearance: positive: No acute distress, Alert Eyes Bilateral: positive: Normal inspection, No scleral icterus Neck: positive: Trachea midline Cardiovascular: positive: Regular rate & rhythm Respiratory: positive: No respiratory distress, Breath sounds nml, Diminished in bases. negative: Wheezes Abdomen: positive: Non-tender, Soft Extremities: positive: No pedal edema Neurologic/Psychiatric: positive: Oriented x3, Mood/affect nml Palliative Care - POLST Patient has POLST: No POLST Status: Full Code Pain: Pain worsening, Location (abdominal and back pain; has not needed to take anything; will renew oxycodone if worsens) Tiredness/Fatigue: Moderate (4-6) Drowsiness/Sedation: None Nausea: Mild (1-3) Anorexia: None Dyspnea: None Depression: None Anxiety: Mild (1-3) Feelings of wellbeing/Perceived Quality of Life: Fair, Acceptable, Improved (until last few days) Sleep: Sleeps well, Sleep improved Constipation: Yes, Managed Performance Status: Patient reports off of her oral meds and Avastin, her functional status actually improved. With improvement of shortness of breath, her strength was better she was able to walk more, she was up to 1 mile four times a week. She is independent in her ADLs, does feel like moving will be stressful, but looking forward to that transition - Palliative Care Discussion: Patient feels like she is in a good space, particularly if everything goes through as far as moving to her new home. She feels this would decrease her stress significantly, and feels like it would also open up for her kids to come visit. Her son did buy her at ticket to come down at [facility] to visit, she is very much looking forward to that. She feels like she has taken her end-of-life planning as far she can given her current situation, and has a significant amount of peace about that. She feels like she is talked everyone, and has not left anything undone at this time. Results - Lab Results Lab results reviewed: Yes Impression and Recommendations - Palliative Care Impression: This is a amirah 66-year-old woman with high-grade serous adenocarcinoma currently in remission. She is transitioning to maintenance Avastin, unfortunately she has recurrent rectal bleeding the last 2448 hrs. and is feeling poorly. Her platelets have recovered enough to restart her Niraparib and is looking forward to continuing with her treatment. She does present with some increased abdominal and back pain, persistent GERD unfortunately has not picked up her Nexium, and persistent nausea currently controlled with her current regimen. Palliative care continues to provide support for pain and symptom management and coordination of care as well as anticipatory guidance Recommendations/Counseling Done: 1. Rectal bleeding. Patient's platelets of 101,000, reports acute bleed, now resolving. Patient aware if worsens to seek emergent help. Suspect it is attributed to her Avastin, did reach out to oncology team, does have an appointment next week. Report given. #2. GERD. Patient unable to afford co-pay for Nexium, was ineffective on Protonix, will [place] back to omeprazole [address] daily[address] She has been using Tums, she does have significant reflux symptoms. #3. Nausea. This remains persistent despite off the medications, she has been using ondansetron 1-2 times a day, and lorazepam at night if needed. #4. Anxiety. Patient is doing fairly well, is looking forward to transitioning to her own home. Though she does perceive there is will be a huge effort, she does feel like it will help her emotional and mental health. #5. Hypertension. Patient's blood pressures have floated down off Avastin, will discontinue the hydrochlorothiazide and continue losartan for now. Can restart if indicated. Patient is anxious to decrease her pill burden. #6. Ovarian cancer. Patient does understand her treatment is palliative in nature, is to restart her niraparib today. She is to meet with oncology next week, and can follow-up regarding Avastin. She is very much weighing benefits and burdens of treatment burden on her quality of life. #7. Advanced care planning. Patient feels like she is taken advanced care planning and conversations to the level that provide her less anxiety. We will continue to follow alongside and develop as goals change. Palliative care continue to build rapport and provide support in her journey. 45 minutes with review of chart, oncology notes, scans, labs, [id number] for symptom management and anticipatory guidance and counseling for support
== END 2021-05-01 12:59 | disposition home or self-care (01) ==
LOC: PC 12:58
PROVIDERS: ATTEND Nurse Practitioner Adult Health
DX: Z51.5 Encounter for palliative care (principal); K62.5 Hemorrhage of anus and rectum; K21.9 Gastro-esophageal reflux disease without esophagitis; R11.0 Nausea; F41.9 Anxiety disorder, unspecified; I10 Essential (primary) hypertension; Z85.43 Personal history of malignant neoplasm of ovary; Z85.44 Personal history of malignant neoplasm of other female genital organs; Z85.89 Personal history of malignant neoplasm of other organs and systems; Z79.899 Other long term (current) drug therapy
CPT/HCPCS: 99215

== ENCOUNTER 2021-07-11 09:55 | Outpatient (CLI) | payer MEDICARE, OTHER ==
--- NOTE | 2021-07-11 12:24 | CONSULTATION NOTE ---
Palliative Care Follow Up - Referral Referring Provider: Dr. Walt Howard Time of Visit: 0955 45 minutes Referral setting: [facility] [place] Referral Reason: Rectal bleeding/depression/Ovarian CA - Information Sources Records reviewed: Previous records reviewed History/Review of Systems obtained from: Patient Exam limitations: No limitations - History of Present Illness Update Brief HPI Update: This is a amirah 66-year-old woman with known high-grade serous adenocarcinoma involving peritoneum, bilateral ovaries, and bilateral fallopian tubes. 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 She did relapse in 07/2020As noted by rising CA-125 and PET scan, underwent second line treatment of carbo/gemcitabine/Avastin and did poorly, was able to complete third line Doxil/carbo/Avastin which she completed 01/2021. She has attempted to do niraparib, has had difficulty related to pancytopenia, was unable to tolerate maintenance Avastin, and recently resumed the niraparib at a dose of 100 mg daily due to thrombocytopenia and recurrent rectal bleed. Despite improved thrombocytopenia, patient continues with persistent bleeding, it is darker serosanguineous, soaking about 1 pad a day. She does have bright red bleeding at times, sometimes exacerbated by stool, other times just with james bleeding. She has been to general surgery, twice, with noted diffuse telangectasia in rectal mucusa with anal exam only. Has not had any further intervention regarding this, and is feeling somewhat distressed with the persistence of this. She did have a colonoscopy about a year ago, with the removal of a polyp, she would like a referral back to GI. She has had persistent nausea still with her reinitiation of her niraparib at 100 mg. She that she has been able to control this with ondansetron in the a.m., and lorazepam at bedtime. If she does have a more difficult day, she does take ondansetron in the middle of the day. She has had 2 episodes of vomiting. She reports her fatigue is really occurred now, but not as persistent or overwhelming as with previous dosing. Patient has had continued weight loss, she is at 173, down from 190, she has had some intentionality regarding this as far as diet changes, and is feeling better at a lower weight. Her depression remains well controlled, her anxiety is better and she feels emotionally overall improved since moving into their own place and no longer living with her [id number]. She reports her relationship with her is good, she just returned from [place] with a visit to her children. She is feeling like she is in a good place currently. She had called a couple weeks ago regarding a description of an perirectal abscess, had called general surgery unable to get until 07/13. This is since improved. On examination, there is no external abscess, but small area of dull pink and palpable 2 cm area that is slightly tender, she reports this is improved. At this point in time no signs of cellulitis or infection, instructed to continue to follow to watch if worsens may need to have a I&D. Past Medical History: Hypertension exacerbated by Avastin, CAD, history of pleural effusions, r esolution of headaches and tremors attributed to gemcitabine, peripheral neuropathy, hypothyroidism, history of valvular cancer adenocarcinoma s/p surgery and laser surgery, depression, anxiety, fatigue, original cancer diagnosis of high-grade serous adenocarcinoma 03/2019 with recurrence 07/2020 Social History - Living Situation Living arrangement: At home Living Situation: With spouse/s.o. Support System: Patient lives at home with her amirah Sukhwinder. She is feeling much better now they are living on their own. She very much enjoys her new home. 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 She is feeling better overall, recently visited 2 of her 4 sons. Medications/Allergies - Medications Home Medications: Ambulatory Orders Medication Instructions Recorded Confirmed Fluoxetine HCl 40 mg PO DAILY 08/21/18 07/11/21 Levothyroxine [Synthroid] 75 mcg PO QDAC 08/21/18 07/11/21 LORazepam [Ativan] 0.5 mg PO Q6H PRN #60 tablet 08/09/20 07/11/21 Cholecalciferol [Vitamin D3] 5,000 units PO DAILY 09/05/20 07/11/21 Prochlorperazine [Compazine] 5 mg PO Q8H PRN #10 10/04/20 07/11/21 oxyCODONE [Roxicodone] 5 - 10 mg PO Q4HR PRN 10/23/20 07/11/21 Losartan [Cozaar] 75 mg PO DAILY 11/04/20 07/11/21 polyethylene glycoL 3350 [Miralax] 17 gm PO .Q2DAYS 01/31/21 07/11/21 Docusate Sodium 100Mg Capsule 100 mg PO DAILY 02/14/21 07/11/21 [Colace 100Mg Capsule] Niraparib Tosylate [Zejula] 100 mg PO DAILY 03/09/21 07/11/21 Omeprazole 40 mg PO DAILY 05/01/21 07/11/21 Ondansetron HCl [Zofran] 4 mg PO Q6HR PRN #30 tab 06/19/21 07/11/21 - Allergies Allergies/Adverse Reactions: Allergies Allergy/AdvReac Type Severity Reaction Status Date / Time No Known Drug Allergies Allergy Verified 02/27/21 16:07 Review of Systems - Constitutional Constitutional: reports: Fatigue (recurrent back on niraparib but not as severe at lower dose), Weakness, Weight loss (173) - Eyes Eyes: reports: Vision loss (saw opthamologist this am; using sunglasses for photosensitivity), Corrective lenses - Ears, Nose & Throat Ears, Nose & Throat: denies: Mouth lesions - Cardiovascular Cardiovascular: reports: Decr. exercise tolerance - Respiratory Respiratory: reports: SOB with exertion (improved over last several weeks but takes about 40 feet to induce dyspnea; improved from 10 feet). denies: Cough, SOB at rest - Gastrointestinal Gastrointestinal: reports: Nausea (less; using antiemetics), Early satiety - Genitourinary Genitourinary: reports: Frequency. denies: Dysuria, Urgency, Hematuria - Musculoskeletal Musculoskeletal: reports: Stiffness, Muscle weakness - Integumentary Integumentary: reports: Dryness, Hair changes (hair is growing back) - Neurological Neurological: reports: General weakness (doing more walking), Other (tremors). denies: Headache - Psychiatric Psychiatric: reports: Depression, Anxiety - Endocrine Endocrine: reports: Hypothyroidism - All Other Systems All Other Systems: reports: Reviewed and negative Physical Exam - Vital Signs Temperature: 97.7 C Pulse Rate: 79 Respiratory Rate: 18 O2 Saturation: 99 Blood Pressure: 131/79 - Physical Exam General Appearance: positive: No acute distress, Alert Eyes Bilateral: positive: Normal inspection ENT: positive: No signs of dehydration Neck: positive: Trachea midline Cardiovascular: positive: Regular rate & rhythm Respiratory: positive: No respiratory distress, Breath sounds nml Abdomen: positive: Soft, Tenderness (lower area with deep palpation) Skin: positive: Dryness Extremities: positive: No pedal edema Neurologic/Psychiatric: positive: Oriented x3, Mood/affect nml Palliative Care - POLST Patient has POLST: No POLST Status: Full Code Pain: Location (lower abd; cramping in nature), Severity (2/10) Tiredness/Fatigue: Moderate (4-6) Drowsiness/Sedation: Mild (1-3) Nausea: Mild (1-3) Anorexia: None Dyspnea: Mild (1-3) Depression: Mild (1-3) Anxiety: Mild (1-3) Feelings of wellbeing/Perceived Quality of Life: Good, Acceptable, Improved (really enjoyed feeling well the three weeks off of therapy) Sleep: Sleeps well Constipation: No, Comment (intermittent bright red blood) Performance Status: Patient reports had been doing well off of therapy, had been walking very well for about 3 weeks. She is still walking some and trying to keep it up. She has declined physical therapy in the past, reports she is continuing to improve. - Palliative Care Discussion: Patient reports she is doing much better with less anxiety in her new setting at home. She and her are getting along well, reports he is even starting to talk about things, she feels like she has had good conversations with her kids. She is feeling less anxious about "bad news" in the future, is trying to be more intentional and stay present in the moment. She feels like she is making some progress and her anxiety is much better as well as her depression well controlled. Results - Lab Results Lab results reviewed: Yes Impression and Recommendations - Palliative Care Impression: This is a amirah 66-year-old woman with high-grade serous adenocarcinoma currently in remission. She is currently been restarted on her Niraparib, today her platelets are holding and improved. She does continue with lower abdominal cramping and tenderness, as well is concern for rectal bleeding despite improved thrombocytopenia. She would like to pursue GI referral, she has seen [facility] before. Palliative care continue provide support for pain and symptom management, and coordination of care as well as anticipatory guidance. Recommendations/Counseling Done: 1. Rectal bleeding. Patient's platelets 142,000, reports continuing to have bleeding over the last several weeks despite being off Avastin and niraparib. She does have soaked pads at least 1 a day, is finding this somewhat distressing as well as intermittent james bleeding. She would like a referral to GI, she has seen [facility] before. We will go ahead and facilitate this in coordination with oncology. She has been instructed to call if do not hear anything in 1 week. Patient on small ASA 81 mg daily, has been inconsistent in taking this. We will go ahead and discontinue for now. 2. Perirectal abscess. This appears to be improving, it is 1 to 2 cm to the left side of her anus. Patient has been instructed on signs and symptoms of worsening with tenderness, she has been doing hot packs and baths with resolution. 3. GERD. Patient went is a unable to afford co-pay for Nexium, Protonix was ineffective, she has been doing better on omeprazole [address] daily. 4. Nausea. This has continued to be intermittently persistent, she has been using ondansetron 1-2 times a day and lorazepam at night to this is controlled her underlying symptoms. 5. Hypertension. Patient's blood pressures had improved off Avastin, did discontinue hydrochlorothiazide and is continuing on losartan for now. We will continue though with her blood pressure still at 131/79. Patient is wants to decrease her pill burden but repeat ported that still continues to need this at this time. 6. Ovarian cancer. Patient does understand her treatment is palliative in nature, currently she is in remission. She is restarted her niraparib at 100 mg is tolerating this better. She continues to meet with oncology, has follow-up next week. She continues to weigh benefits and burdens of treatment burden on her quality of life. 7. Advanced care planning. Patient feels like she is done well with her advance care planning and with her conversations to level that have provided less anxiety. We will continue to follow patient has goals change and in accordance with disease trajectory. Palliative care continue to build rapport and provide support for patient. 45 minutes with review of chart, labs, oncology notes, coordination of care with oncology team, referral made.
== END 2021-07-11 09:56 | disposition home or self-care (01) ==
LOC: PC 09:55
PROVIDERS: ATTEND Nurse Practitioner Adult Health
DX: Z51.5 Encounter for palliative care (principal); K62.5 Hemorrhage of anus and rectum; I78.1 Nevus, non-neoplastic; F32.A Depression, unspecified; K21.9 Gastro-esophageal reflux disease without esophagitis; R53.83 Other fatigue; R11.0 Nausea; T45.1X5A Adverse effect of antineoplastic and immunosuppressive drugs, initial encounter; I10 Essential (primary) hypertension; K61.1 Rectal abscess; R63.4 Abnormal weight loss; R10.30 Lower abdominal pain, unspecified; C57.8 Malignant neoplasm of overlapping sites of female genital organs; Z79.899 Other long term (current) drug therapy
CPT/HCPCS: 99215

== ENCOUNTER 2021-10-09 10:40 | Outpatient (CLI) | payer MEDICARE, OTHER ==
--- NOTE | 2021-10-09 14:14 | CONSULTATION NOTE ---
Palliative Care Follow Up - Referral Referring Provider: Dr. Walt Howard Time of Visit: 1040 45 minutes Referral setting: [facility] [place] Referral Reason: Depression/Anxiety/Met Ovarian CA - Information Sources Records reviewed: Previous records reviewed History/Review of Systems obtained from: Patient Exam limitations: No limitations - History of Present Illness Update Brief HPI Update: This is a very amirah 66-year-old woman with known high-grade serous adenocarcinoma involving peritoneum, bilateral ovaries and bilateral fallopian tubes. She is currently on niraparib, and has had increasing CA 1 25. Her rectal bleeding which previously was noted in the fall, had resolved up to 2 weeks ago, then she had a large amount of bleeding in the toilet on time, no pain, and now it is sporadic but small amounts. She had been scheduled for colonoscopy and follow up with GI, we discussed most likely will need to reschedule this now. She reports she has had some increased pain bilaterally in the deep groin areas, not enough to need medication, but it is causing discomfort. She has had regular bowel movements, does have some bright red bleeding with this, has had some intermittent constipation. She continues with low-grade persistent nausea, using intermittent ondansetron or Compazine, she is having a lot of anxiety at night, and has been using lorazepam with resolution of this. She has not had any recurrent shortness of breath, she is feeling much more at peace with her diagnosis, and feels her quality of life is good and she is in a good spot right now.. Past Medical History: Original diagnosis with pleural effusion ascites with carcinomatosis, completed surgery and chemo 10/01. Had relapsed 07/31, underwent second line treatment of carbo, gemcitabine/[facility] [place], did poorly and went to third line Doxil/carbo/Avastin which completed 01/30. She had attempted to do niraparib, has had several stops and starts related to thrombocytopenia and rectal bleeding. Social History - Living Situation Living arrangement: At home Living Situation: With spouse/s.o. Support System: Patient lives in their new mobile home, with her amirah Sukhwinder. She very much enjoys her new home is looking forward to gardening. 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 She is expecting visiting from her grand kids over the spring break coming this October. She feels like she is doing well overall as well as her also Medications/Allergies - Medications Home Medications: Ambulatory Orders Medication Instructions Recorded Confirmed Fluoxetine HCl 40 mg PO DAILY 08/21/18 10/09/21 Levothyroxine [Synthroid] 75 mcg PO QDAC 08/21/18 10/09/21 LORazepam [Ativan] 0.5 mg PO Q6H PRN #60 tablet 08/09/20 10/09/21 Cholecalciferol [Vitamin D3] 5,000 units PO DAILY 09/05/20 10/09/21 oxyCODONE [Roxicodone] 5 - 10 mg PO Q4HR PRN 10/23/20 10/09/21 Losartan [Cozaar] 75 mg PO DAILY 11/04/20 10/09/21 Niraparib Tosylate [Zejula] 100 mg PO DAILY 03/09/21 10/09/21 Omeprazole 40 mg PO DAILY 05/01/21 10/09/21 ondansetron HCL [Zofran] 4 mg PO Q6HR PRN #30 tab 06/19/21 10/09/21 Prochlorperazine [Compazine] 5 mg PO Q6H 08/16/21 10/09/21 - Allergies Allergies/Adverse Reactions: Allergies Allergy/AdvReac Type Severity Reaction Status Date / Time No Known Drug Allergies Allergy Verified 09/11/21 11:43 Review of Systems - Constitutional Constitutional: reports: Fatigue (persistent but able to function), Weakness, Weight stable (80.6) - Eyes Eyes: reports: Vision loss (saw opthamologist this am; using sunglasses for photosensitivity), Corrective lenses - Ears, Nose & Throat Ears, Nose & Throat: denies: Mouth lesions - Cardiovascular Cardiovascular: reports: Decr. exercise tolerance - Respiratory Respiratory: reports: SOB with exertion (improved). denies: Cough, SOB at rest - Gastrointestinal Gastrointestinal: reports: Rectal bleeding (restarted about 2 weeks ago), Nausea (persistent; controlled with meds), Early satiety - Genitourinary Genitourinary: reports: Frequency. denies: Dysuria, Urgency, Hematuria - Musculoskeletal Musculoskeletal: reports: Stiffness, Muscle weakness - Integumentary Integumentary: reports: Dryness, Hair changes (hair is growing back) - Neurological Neurological: denies: Headache - Psychiatric Psychiatric: reports: Anxiety (improved). denies: Depression - Endocrine Endocrine: reports: Hypothyroidism - All Other Systems All Other Systems: reports: Reviewed and negative Physical Exam - Vital Signs Temperature: 36.5 C Pulse Rate: 73 Respiratory Rate: 16 O2 Saturation: 97 (ra @ rest) Blood Pressure: 126/77 - Physical Exam General Appearance: positive: No acute distress, Alert Eyes Bilateral: positive: Normal inspection ENT: positive: No signs of dehydration Neck: positive: Trachea midline Cardiovascular: positive: Regular rate & rhythm Respiratory: positive: No respiratory distress, Breath sounds nml Abdomen: positive: Soft, Tenderness (lower groin areas wtih palpation) Skin: positive: Pallor, Dryness Extremities: positive: No pedal edema Neurologic/Psychiatric: positive: Oriented x3, Mood/affect nml Palliative Care - POLST Patient has POLST: No POLST Status: Full Code Pain: Pain unchanged, Location (bilat groin discomfort) Tiredness/Fatigue: Mild (1-3) Drowsiness/Sedation: None Nausea: Mild (1-3) Anorexia: None Dyspnea: None Depression: None Anxiety: None Feelings of wellbeing/Perceived Quality of Life: Excellent Sleep: Variable sleep pattern (improved with lorazepam) Performance Status: Has not been walking as much secondary to weather, but does take the dogs out on a regular basis. Reports she is doing well overall with her functional status, continues to improve. Reports she feels settled in, well enough to work. - Palliative Care Discussion: Spoke at length with patient, she is feeling in a good space regarding her diagnosis. She does understand that all treatment is palliative nature, but she is not feeling like she "had to know" what is going to happen this round. She has been getting support through a ovarian support group, she is suspecting her CA125 is up and that will be a shift in plan of treatment. She feels like she is going to be able to take this into this stride, and is more willing to consider treatment in the future seeing this more as a chronic disease model. She is looking forward to a visit from her son and grandsons coming up, she is enjoying work, she feels like her and her in a good place. She feels like her depression and anxiety is well controlled. Results - Lab Results Lab results reviewed: Yes Impression and Recommendations - Palliative Care Impression: This is a amirah 66-year-old woman with high-grade serous adenocarcinoma, with increasing [id number]. She is currently on her niraparib, with most likely reassessment of her treatment plan. She had resolution of the rectal bleeding, so did not pursue GI referral, she will at this point after meeting with oncology. Patient is doing well psychologically, feels she has adequate support no matter what direction or the news. Palliative care continue provide support for pain and symptom management, coordination of care as well as anticipatory guidance. Recommendations/Counseling Done: 1. Recurrent rectal bleeding. Patient had had some resolution of this, was doing expectant waiting. She does have a pending referral at [facility]. She will follow-up with oncology whether to follow-up with this, most likely will be recommended at this point. She does understand this. 2. Nausea. This continues to be persistent, attributed to the niraparib, is currently controlled with medications available. She has not had any vomiting, reports continues to have intermittent stomach issues since diagnosis. She is taking lorazepam at night, and is having control of her underlying symptoms. 3. Anxiety. Patient presents with feeling well today, positive despite most likely worsening numbers. She feels at peace currently. Does not feel she needs any medication suggested. 4. Ovarian cancer. She does understand her treatment is palliative in nature, she has been on niraparib Mab at 100 mg, has tolerated this better. She was curious about immunotherapy, and next steps if her CA125 continues to increase, defer to oncology but did discuss how they all work together. She continues to weigh benefits and burdens of treatment burden on her quality of life, though is feeling much more accepting of moving forward with treatment changes. 5. Advanced care planning. Patient has done well with her advance care planning, does feel like she is meeting her current goals, and is doing well overall. Palliative care continue provide support intermittently every 6 to 8 weeks. 45 minutes review of chart, labs, [id number] with patient, reordered lorazepam and oxycodone, will continue to follow. Counseling provided regarding anticipatory guidance, symptom management, and coordination of care
== END 2021-10-09 10:41 | disposition home or self-care (01) ==
LOC: PC 10:40
PROVIDERS: ATTEND Nurse Practitioner Adult Health
DX: Z51.5 Encounter for palliative care (principal); K62.5 Hemorrhage of anus and rectum; R11.0 Nausea; F41.9 Anxiety disorder, unspecified; C56.3 Malignant neoplasm of bilateral ovaries; C48.2 Malignant neoplasm of peritoneum, unspecified; C57.02 Malignant neoplasm of left fallopian tube; C57.01 Malignant neoplasm of right fallopian tube
CPT/HCPCS: 99215

== ENCOUNTER 2021-11-27 10:40 | Outpatient (CLI) | payer MEDICARE, OTHER ==
--- NOTE | 2021-11-27 12:38 | XRAY Report ---
PROCEDURE: Chest 2 View X-Ray INDICATIONS: WORSENING DYSPNEA,COUGH,HX OF L PLEURAL EFFUSIUM TECHNIQUE: 2 view(s) of the chest. COMPARISON: CT chest 10/30/2021.. FINDINGS: Surgical changes and devices: Right chest wall Port-A-Cath. Cholecystectomy clips.. Lungs and pleura: No pneumothorax. Moderate-sized left-sided pleural effusion. Consolidation left lupe ng base which could represent compressive atelectasis, aspiration or pneumonia. Mediastinum: Mediastinal contours are normal. Heart size is normal. Bones and chest wall: No suspicious bony abnormalities. Soft tissues appear unremarkable. IMPRESSION: 1. [id number] pleural effusion. 2. Left basilar consolidation which could represent atelectasis, aspiration or pneumonia. Reviewed by: Isabela Yang MD, PhD on 11/27/2021 12:37 PM PDT Approved by: Isabela Yang MD, PhD on 11/27/2021 12:37 PM PDT Station ID: [id number]
== END 2021-11-27 10:41 | disposition home or self-care (01) ==
LOC: DI 10:40
PROVIDERS: ATTEND Nurse Practitioner Adult Health
DX: Z87.09 Personal history of other diseases of the respiratory system (principal); J90 Pleural effusion, not elsewhere classified; R91.8 Other nonspecific abnormal finding of lung field

== ENCOUNTER 2021-11-27 10:52 | Outpatient (CLI) | payer MEDICARE, OTHER ==
--- NOTE | 2021-11-27 11:10 | CONSULTATION NOTE ---
Palliative Care Follow Up - Referral Referring Provider: Dr. Walt Howard Time of Visit: 10:00 60 Referral setting: [facility] [place] Referral Reason: Dyspnea/N&V/Met Ovarian CA - Information Sources Records reviewed: Previous records reviewed History/Review of Systems obtained from: Patient, Family ( Glen present today) Exam limitations: No limitations - History of Present Illness Update Brief HPI Update: This is a amirah 66-year-old woman with known high-grade serous adenocarcinoma involving peritoneum, bilateral ovaries, bilateral fallopian tubes of concern patient contacted relative care secondary to having difficulty with nausea and vomiting. She had increased her niraparib from 100 mg to 200 mg and has had wo rsening nausea and vomiting as before. She has tried her ondansetron without any results using lorazepam with limited results as well. Last time we were able to improve her nausea and vomiting with dexamethasone, she still has a refill, she will take this 2 mg twice daily for few days and see if she can get on top of it. She did have some labs were no significant abnormalities. She herself decreased her dosing to 100 mg, she is concerned her numbers were going up "anyway". At this point she does not have any pending scans. On evaluation, patient presents with significantly worsening dyspnea. She reports this has been increasing over several days to couple weeks. Patient did actually have Covid on 11/28, did not have respiratory feelings symptoms at that time, more cold symptoms runny nose, and fatigue. She has been steadily improving from this. At this point in time she has dyspnea on exertion, feels more tight, she used some kind of inhaler she is unable to identify this morning with some relief. She reports her O2 sats were down to 88%, on arrival they were 93% and increased to 98% with rest.She does say she feels like she needs some oxygen, when she gets panicky, if she slows down and does some deep breathing this improves. Patient originally had presented with a malignant left pleural effusion, she is high anxiety regarding this, she does have decreased breath sounds in her left lower lobe, but no wheezing or crackles. She reports she has a sensation of not be able to get air in. We will go ahead and do a chest x-ray given her symptoms and objective findings. Her nausea and vomiting did improve over the weekend, she has not had any further symptoms, she is taking the nirabarib at 100 mg. I did inform oncology, Dr. Howard is fine with this. She does have an appointment in 2 weeks and no need to move up any imaging. Given her nausea and vomiting are improving, I did recommend she titrate back down off the dexamethasone. Awaiting outcome of chest x-ray to move forward on plan for management of dyspnea, did encourage if she got too panicky, could use half of lorazepam as she does get distressed with this. 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 Had relapsed 07/31 underwent second line treatment of carbo/gemcitabine/Avastin with poor tolerance then transition to third line Doxil/carbo/Avastin. Social History - Living Situation Living arrangement: At home Living Situation: With spouse/s.o. Support System: Patient lives with her Sukhwinder in a newer mobile home they have recently acquired. She very much enjoys her new home and has been up to the last couple weeks before she got Covid doing some gardening. 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 She is somewhat anxious regarding outcome of her recent elevation in her CA-125, as well as symptom burden. Medications/Allergies - Medications Home Medications: Ambulatory Orders Medication Instructions Recorded Confirmed Fluoxetine HCl 40 mg PO DAILY 08/21/18 11/13/21 Levothyroxine [Synthroid] 75 mcg PO QDAC 08/21/18 11/13/21 LORazepam [Ativan] 0.5 mg PO Q6H PRN #60 tablet 08/09/20 11/13/21 Cholecalciferol [Vitamin D3] 5,000 units PO DAILY 09/05/20 11/13/21 oxyCODONE [Roxicodone] 5 - 10 mg PO Q4HR PRN 10/23/20 11/13/21 Niraparib Tosylate [Zejula] 100 mg PO DAILY 03/09/21 11/13/21 Omeprazole 40 mg PO DAILY 05/01/21 11/13/21 ondansetron HCL [Zofran] 4 mg PO Q6HR PRN #30 tab 06/19/21 11/13/21 Prochlorperazine [Compazine] 5 mg PO Q6H 08/16/21 11/13/21 hydroCHLOROthiazide [Hydrodiuril] 12.5 mg PO DAILY 11/13/21 11/13/21 - Allergies Allergies/Adverse Reactions: Allergies Allergy/AdvReac Type Severity Reaction Status Date / Time No Known Drug Allergies Allergy Verified 09/11/21 11:43 Review of Systems - Constitutional Constitutional: reports: Fatigue (worsening with recent increase in dose of niraparib), Weakness, Weight stable (80.6) - Eyes Eyes: reports: Vision loss (saw opthamologist this am; using sunglasses for photosensitivity), Corrective lenses - Ears, Nose & Throat Ears, Nose & Throat: denies: Mouth lesions - Cardiovascular Cardiovascular: reports: Palpitations (with dyspnea), Exertional dyspnea, Decr. exercise tolerance - Respiratory Respiratory: reports: Cough (dry cough), SOB at rest, SOB with exertion (improved). denies: Hemoptysis - Gastrointestinal Gastrointestinal: reports: Constipation (recent with some recurrent rectal bleeding; now firm and bleeding resolved; unfortunately had to reschedule GI appointment as she had COVID, scheduled for early December), Rectal bleeding (restarted about 2 weeks ago), Nausea (persistent; controlled with meds), Early satiety - Genitourinary Genitourinary: reports: Frequency. denies: Dysuria, Urgency, Hematuria - Musculoskeletal Musculoskeletal: reports: Stiffness, Muscle weakness - Integumentary Integumentary: reports: Dryness - Neurological Neurological: reports: General weakness, Abnormal gait. denies: Headache - Psychiatric Psychiatric: reports: Anxiety (with increased CA 125 and dyspnea). denies: Depression - Endocrine Endocrine: reports: Hypothyroidism - All Other Systems All Other Systems: reports: Reviewed and negative Physical Exam - Vital Signs Pulse Rate: 85 Respiratory Rate: 20 (24 with effort) O2 Saturation: 98 (see HPI) Blood Pressure: 134/84 - Physical Exam General Appearance: positive: Alert, Mild distress (with dyspnea), Anxious Eyes Bilateral: positive: Normal inspection ENT: positive: No signs of dehydration Neck: positive: Trachea midline Cardiovascular: positive: Regular rate & rhythm Respiratory: positive: No respiratory distress, Other (min air movement LLL up to 1/3; diminished throughout). negative: Wheezes Abdomen: positive: Soft, Tenderness (lower groin areas wtih palpation) Skin: positive: Pallor, Dryness Extremities: positive: No pedal edema Neurologic/Psychiatric: positive: Oriented x3, Mood/affect nml Palliative Care - POLST Patient has POLST: No POLST Status: Full Code Pain: Pain unchanged, Location (mild lower abdominal pain and tenderness with palpation/worsens with constipation) Tiredness/Fatigue: Moderate (4-6) (worsening; exacerbation with COVID) Nausea: None (improved with dex and decreased dosing) Anorexia: Mild (1-3) Dyspnea: Severe (7-10) (worsening) Depression: Mild (1-3) Anxiety: Moderate (4-6) (with changes in health) Feelings of wellbeing/Perceived Quality of Life: Fair, Worsening Sleep: Variable sleep pattern Constipation: Yes, Intermittent constipation Performance Status: Patient's functional status had continued to improve, prior to decline with increasing dyspnea and increased dosing of her nirapinib. She can only ambulate short distances without needing to rest, is pacing herself but has had notable functional decline related to this. - Palliative Care Discussion: Patient is notably anxious, appropriately so. She originally had presented with a left pleural effusion and worsening dyspnea, she is feeling this a bit of a dj vu. She is concerned about her worsening numbers, poor toleration of her current treatment, and actually is quite open to returning to her previous treatments. She has come to an understanding that this is going to be her course, and much more accepting of this. Her was able to join her this time, as COVID restrictions have lifted. Was opportunity to do a check-in with both of them. Results - Lab Results Lab results reviewed: Yes Lab and Imaging Results: 12.5 WBC most likely attributed to initation of dex Impression and Recommendations - Palliative Care Impression: This is a amirah 66-year-old woman with high-grade serous adenocarcinoma, currently on niraparib, with increasing side effects of nausea and fatigue. Patient presents with symptoms of left pleural effusion, will send for chest x- ray. Unfortunately she was not able to have follow-up on her rectal bleeding, has had tested COVID-positive and had to reschedule. Palliative care continue provide support and coordination of care for symptom management psychosocial support and anticipatory guidance Recommendations/Counseling Done: 1. Dyspnea. Patient presents with symptoms of left pleuralEffusion, will send for chest x-ray. Patient also hypoxic with activity, if not pleural effusion, will evaluate for oxygen therapy. Patient is satting okay at rest, instructed to pace activities and will intervene based on outcome of chest x-ray. 2. Rectal bleeding. She did have an exacerbation with constipation, and some residual hemorrhoid pain. Has not been able to follow through yet on her "light" colonoscopy, but does have that rescheduled for early December. Counseling provided regarding continuing to focus on bowel program keeping it soft and mov ing. 3. Nausea. This most likely can be attributed to her niraparib, with decreased dose and initiation of dexamethasone 2 mg twice daily for 3 days, did resolve. Instructed to continue to titrate down, to 2 mg for a few days, then 1 mg and then discontinue. Patient verbalized understanding. 4. Anxiety. This is multifactorial, patient with worsening CEA 125, awaiting further evaluation, concern regarding needing to adjust treatment plan. Patient feeling like she is in a better place to be able to accept ongoing treatment as part of her journey. We will continue to monitor and provide support for side effects. 5. High-grade serous ovarian adenocarcinoma recurrent,. Patient presents with concerning symptoms of recurrent and worsening disease with elevated Ca1 25, most likely recurrent pleural effusion. 6. Advance care planning. Patient aware of the seriousness of her illness, has done most of her documents, can revisit POLST in future if indicated, at this point patient goals are to continue treatment, focus on quality of life and quantity of life. 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 Addendum. Patient does present with left lower lobe pleural effusion, with worsening symptoms. Consult with oncologist Dr. Howard will arrange for thoracentesis urgently secondary to high symptom burden, patient has been instructed if acute distress to proceed to the emergency room. Will make arrangements for cytology, goal will be to evaluate based on outcome of this test for next steps. This was shared with patient, verbalized understanding. 60 minutes with review of chart, labs, consultation with Oncology, arrangements for urgent testing, follow-up and orders regarding this. [id number] counseling for symptom management, psychosocial support and anticipatory guidance
== END 2021-11-27 10:53 | disposition home or self-care (01) ==
LOC: PC 10:52
PROVIDERS: ATTEND Nurse Practitioner Adult Health
DX: Z51.5 Encounter for palliative care (principal); R06.09 Other forms of dyspnea; F41.9 Anxiety disorder, unspecified; U07.1 COVID-19; K62.5 Hemorrhage of anus and rectum; K59.00 Constipation, unspecified; R11.0 Nausea; J90 Pleural effusion, not elsewhere classified; C56.3 Malignant neoplasm of bilateral ovaries; C78.6 Secondary malignant neoplasm of retroperitoneum and peritoneum; Z79.899 Other long term (current) drug therapy
CPT/HCPCS: 99215

== ENCOUNTER 2021-12-11 08:00 | Outpatient (CLI) | payer MEDICARE, OTHER ==
[2021-12-11 10:17] LABS: CHOLESTEROL 161 mg/dL; HDL CHOLESTEROL 53 mg/dL; LDL CHOLESTEROL,CALCULATED 76 mg/dL; LDL/HDL RATIO 1.4 (<4.4); TRIGLYCERIDES 162 mg/dL; VLDL CHOLESTEROL 32 mg/dL
[2021-12-11 10:27] LABS: THYROID STIMULATING HORMONE 3.59 uIU/mL (0.34-5.60)
[2021-12-11 11:43] LABS: ESTIMATED AVERAGE GLUCOSE 128 mg/dL (70-100); HEMOGLOBIN A1c% 6.1 % (4.27-6.07)
== END 2021-12-11 23:59 | disposition home or self-care (01) ==
LOC: LAB 08:00
PROVIDERS: ATTEND Internal Medicine
DX: E78.2 Mixed hyperlipidemia (principal); E55.9 Vitamin D deficiency, unspecified; R73.03 Prediabetes; E03.9 Hypothyroidism, unspecified
CPT/HCPCS: 36415; 80061; 82306; 83036; 83721; 84443

== ENCOUNTER 2021-12-22 13:10 | Outpatient (CLI) | payer MEDICARE, OTHER ==
--- NOTE | 2021-12-22 21:19 | CONSULTATION NOTE ---
Palliative Care Follow Up - Referral Referring Provider: Dr. Howard Time of Visit: 1330 45 minutes Referral setting: [facility] [place] Referral Reason: Relapse of ovarian CA/anxiety/Goals of care - Information Sources Records reviewed: Previous records reviewed History/Review of Systems obtained from: Patient Exam limitations: No limitations - History of Present Illness Update Brief HPI Update: This is a amirah 66-year-old woman whom I saw 11/27, presenting with increased shortness of breath, and suspicion for recurrent pleural effusion on the left. Confirmed on xray. She did receive a thoracentesis, and indeed came back as malignant. She has been restarted this last week on Doxil/carbo, with CA125 rising, and is expecting new baseline CT body scan. She is appropriately responding emotionally, describing it as a roller coaster, with anxiety, depression is currently controlled. She is feeling confident that she moves into this, so far just has some lightheadedness, but has tolerated this week with mild nausea and no vomiting. 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 She does have a pending MRI for her pelvic, but her understanding was that GI doc was to reach out with Dr. St, to see if they should delay chemotherapy secondary to this finding. She does not know what this happened, nor did she say anything. Patient is breathing better, she has some residual fluid left in her left lower lung, but no increased shortness of breath. She did have a difficult time with the thoracentesis, found it quite painful and was having spasms, sounds like it may have hit a nerve. Past Medical History: Original diagnosis was with pleural effusion/ascites with carcinomatosis, completed surgery and chemo 10/01. Had relapsed 07/31 underwent second line treatment of carbo gemcitabine and Avastin with poor tolerance then transition to third line Doxil/carbo/Avastin. Social History - Living Situation Living arrangement: At home Living Situation: With spouse/s.o. Support System: Lives in her new [place] home [place], she has very excited. She enjoys her new home and has been doing gardening. 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 Her works locally, and has had a shift in his hours so he is home with her in the evenings.They do understand the seriousness of the illness, and have been having good conversations regarding this. Patient has senna, then she encouraged to have 3 children together they have adopted, which they had fostered. She is planning to visit everyone prior to further decline. Medications/Allergies - Medications Home Medications: Ambulatory Orders Medication Instructions Recorded Confirmed Fluoxetine HCl 40 mg PO DAILY 08/21/18 12/22/21 Levothyroxine [Synthroid] 75 mcg PO QDAC 08/21/18 12/22/21 LORazepam [Ativan] 0.5 mg PO Q6H PRN #60 tablet 08/09/20 12/22/21 Cholecalciferol [Vitamin D3] 5,000 units PO DAILY 09/05/20 12/22/21 oxyCODONE [Roxicodone] 5 - 10 mg PO Q4HR PRN 10/23/20 12/22/21 Omeprazole 40 mg PO DAILY 05/01/21 12/22/21 ondansetron HCL [Zofran] 4 mg PO Q6HR PRN #30 tab 06/19/21 12/22/21 Prochlorperazine [Compazine] 5 mg PO Q6H 08/16/21 12/22/21 ondansetron HCL [Ondansetron HCl] 8 mg PO TID PRN 12/22/21 12/22/21 - Allergies Allergies/Adverse Reactions: Allergies Allergy/AdvReac Type Severity Reaction Status Date / Time No Known Drug Allergies Allergy Verified 09/11/21 11:43 Review of Systems - Constitutional Constitutional: reports: Fatigue, Weight stable (80.6) - Eyes Eyes: reports: Vision loss (saw opthamologist this am; using sunglasses for photosensitivity), Corrective lenses - Ears, Nose & Throat Ears, Nose & Throat: denies: Mouth lesions - Cardiovascular Cardiovascular: reports: Palpitations, Exertional dyspnea, Decr. exercise tolerance - Respiratory Respiratory: reports: SOB with exertion. denies: SOB at rest (resolved with thoracentisis) - Gastrointestinal Gastrointestinal: reports: Rectal bleeding (none for two weeks), Nausea (remains persistent; hoping after this week improved; originally was the zeujula), Early satiety - Genitourinary Genitourinary: reports: Frequency. denies: Dysuria, Urgency, Hematuria - Musculoskeletal Musculoskeletal: reports: Stiffness, Muscle weakness - Integumentary Integumentary: reports: Dryness - Neurological Neurological: reports: General weakness, Abnormal gait - Psychiatric Psychiatric: reports: Anxiety. denies: Depression - Endocrine Endocrine: reports: Hypothyroidism - All Other Systems All Other Systems: reports: Reviewed and negative Physical Exam - Vital Signs Pulse Rate: 85 Respiratory Rate: 18 Blood Pressure: 118/70 - Physical Exam General Appearance: positive: Alert Eyes Bilateral: positive: No scleral icterus ENT: positive: No signs of dehydration Neck: positive: Trachea midline Cardiovascular: positive: Regular rate & rhythm Respiratory: positive: No respiratory distress, Other (diminished LLL). negative: Wheezes Abdomen: positive: Soft, Tenderness Skin: positive: Pallor, Dryness Extremities: positive: No pedal edema Neurologic/Psychiatric: positive: Oriented x3, Mood/affect nml Palliative Care - POLST Patient has POLST: No Pain: No pain Tiredness/Fatigue: Moderate (4-6) Drowsiness/Sedation: Moderate (4-6) Nausea: Moderate (4-6) Anorexia: None Dyspnea: Mild (1-3) Depression: None Anxiety: Moderate (4-6), Comment (using lorazepam with good effect 1-2 x day) Feelings of wellbeing/Perceived Quality of Life: Good, Acceptable Sleep: Sleep improved Constipation: No Performance Status: Patient independent in ADLs, 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 Is able to ambulate short distances, fluctuating activity tolerance. Much improved with thoracentesis. - Palliative Care Discussion: Discussion and counseling regarding emotional roller coaster, patient experience with relapse of disease and seriousness of her illness. She does understand if no treatment she has less than 6 months. She wants her end-of-life to be full of good months, is awaiting to see how she tolerates the chemotherapy. If is impacting quality of life such that not acceptable, she would plan to transition to hospice. 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 Patient also interested in end-of-life Mary referral, gave information regarding DWD and process. Results - Lab Results Lab results reviewed: Yes Impression and Recommendations - Palliative Care Impression: This is a amirah 66-year-old woman with high-grade serous adenocarcinoma with relapse attributed to malignant pleural effusion. She has started top Doxil/carboplatinum with the goal for disease management and palliative intent. She recently also had her GI appointment, with noted rectal abscess/fistula, awaiting results of MRI of pelvis. Patient continues with anxiety, weighing benefits and burdens of continue with treatment. Palliative care continue provide support and coordination of care for symptom management, psychosocial support, and anticipatory guidance. Recommendations/Counseling Done: 1. Relapse of high-grade serous ovarian adenocarcinoma. Patient started Doxil/carboplatinum, reports some persistent nausea and lightheadedness otherwise is tolerating fine. Patient will continue to weigh benefits of burdens of treatment moving forward, does recognize it is in palliative intent. Addressed questions regarding symptom management and side effects of chemo, as well as support given regarding clarifying patient's goals. 2. Anxiety. This is multifactorial, patient appropriately anxious in the context of relapse of disease, and impending decline. Patient uses lorazepam intermittently for both for nausea and anxiety, reviewed appropriate use, patient feels anxiety versus depression, and weighing benefits and burdens of increasing Prozac. Rx provided. 3. Nausea. Patient is hopeful after this week, nausea will resolve. As it had been attributed to her niraparib. Refill on ondansetron 8 mg 3 times daily provided. 4. Dyspnea. Patient's left pleural effusion, has residual only in base. She does report some breathlessness but is much improved. She did have a negative experience with a thoracentesis, and if The repeat would like premedication for pain. Will address if needs to order. Patient is pacing activities, able to increase secondary to her activity tolerance and dyspnea improvement. 5. Rectal bleeding. Patient did get her "light colonoscopy, unfortunately shows fistula/abscess. Did send email to both Dr. Howard and Ashley Goncalves PA-C as she is unclear who she is seeing. Reviewed signs and symptoms of infection, unfortunately unclear if there have been communication between GI and oncology, regarding patient did receive treatment and is at high risk for infection. This was reviewed with patient, she will review it again with her oncology appointment on Saturday. 6. Advanced care planning. Patient aware of the seriousness of her illness, and palliative intent of her treatment. She has done most of her documents, her plan will be if unable to tolerate side effects, transition to hospice. She is hopeful to be able to visit her children 1 more time, she has a trip planned in March to see the 3 boys, and her daughter in January. She does have another son in [place] which she is trying to coordinate with. She reports she and her are congruent and her goals, patient counseled on the continuum of care, including addressing her questions regarding DWD. 7. Hypertension. Discontinued the last of her blood pressure medications, given patient's propensity for lightheadedness and blood pressure within normal range. Tension had been induced by Avastin, patient was not hypertensive prior to her treatment. 45 minutes with review of chart, oncology notes, labs, scans, [id number] for counseling for pain and symptom management and anticipatory guidance.
== END 2021-12-22 13:11 | disposition home or self-care (01) ==
LOC: PC 13:10
PROVIDERS: ATTEND Nurse Practitioner Adult Health
DX: Z51.5 Encounter for palliative care (principal); J91.0 Malignant pleural effusion; C56.9 Malignant neoplasm of unspecified ovary; F41.9 Anxiety disorder, unspecified; R11.0 Nausea; R42 Dizziness and giddiness; T45.1X5A Adverse effect of antineoplastic and immunosuppressive drugs, initial encounter; K62.5 Hemorrhage of anus and rectum; K92.89 Other specified diseases of the digestive system; Z79.899 Other long term (current) drug therapy
CPT/HCPCS: 99215

== ENCOUNTER 2022-06-04 10:16 | Outpatient (CLI) | payer MEDICARE, OTHER ==
--- NOTE | 2022-06-04 10:33 | XRAY Report ---
PROCEDURE: Chest 2 View X-Ray INDICATIONS: DYSPNEA TECHNIQUE: 2 views of the chest were obtained. COMPARISON: CT chest 12/13/2021 FINDINGS: Cardiac silhouette is mildly enlarged. No effusions, consolidations or pneumothorax. Osseous and soft tissue structures are unremarkable. Right Port-A-Cath and cholecystectomy clips are present. IMPRESSION: No acute pulmonary process. Reviewed by: Yeny Tsang MD on 06/04/2022 10:32 AM PDT Approved by: Yeny Tsang MD on 06/04/2022 10:32 AM PDT Station ID: [id number]
== END 2022-06-04 10:17 | disposition home or self-care (01) ==
LOC: DI 10:16
PROVIDERS: ATTEND Nurse Practitioner Adult Health
DX: R05.9 Cough, unspecified (principal); R06.00 Dyspnea, unspecified; Z79.899 Other long term (current) drug therapy; R05.3 Chronic cough

== ENCOUNTER 2022-08-02 10:21 | Emergency (ER) | payer MEDICARE, OTHER ==
[2022-08-02 11:00] LABS: BASOPHILS % (AUTO) 0.2 %; EOSINOPHILS % (AUTO) 0.2 %; HCT - HEMATOCRIT 43.1 % (37.0-47.0); HGB - HEMOGLOBIN 13.6 g/dL (12.0-16.0); LYMPHOCYTES # (AUTO) 1.6 10^3/uL (1.5-3.5); LYMPHOCYTES % (AUTO) 12.9 %; MEAN CORPUSCULAR HEMOGLOBIN 31.8 pg (27.0-31.0); MEAN CORPUSCULAR HGB CONC 31.6 g/dL (32.0-36.0); MEAN CORPUSCULAR VOLUME 100.7 fL (81.0-99.0); MEAN PLATELET VOLUME 9.5 fL (7.9-10.8); MONOCYTES # (AUTO) 1.3 10^3/uL (0.0-1.0); NEUTROPHILS # (AUTO) 9.6 10^3/uL (1.5-6.6); NEUTROPHILS % (AUTO) 75.7 %; PLT - PLATELET COUNT 110 10^3/uL (130-450); RED BLOOD COUNT 4.28 10^6/uL (4.20-5.40); WHITE BLOOD COUNT 12.6 x10^3/uL (4.8-10.8)
[2022-08-02] MEDS ORDERED: ONDANSETRON 4 MG/2 ML VIAL IVP STA (11:02)
[2022-08-02] MEDS ORDERED: SODIUM CHLORIDE 0.9% 1,000 ML IV STA (11:02)
[2022-08-02] MEDS ORDERED: MORPHINE 2 MG/ML CARPUJECT IVP STA (11:02)
[2022-08-02 11:19] LABS: ALBUMIN 3.6 g/dL (3.2-5.5); ALBUMIN/GLOBULIN RATIO 0.9 (1.0-2.2); BILIRUBIN,TOTAL 0.9 mg/dL (0.2-1.0); CALCIUM 8.8 mg/dL (8.5-10.3); POTASSIUM 3.8 mmol/L (3.5-5.0); TOTAL PROTEIN 7.6 g/dL (6.7-8.2)
[2022-08-02] MEDS ORDERED: iohexoL-300 100 ML VIAL ONE (11:24)
--- NOTE | 2022-08-02 12:53 | CT Report ---
PROCEDURE: ABDOMEN/PELVIS W INDICATIONS: ovarian cancer/worsening pain CONTRAST: 100ml Omnipaque 300 TECHNIQUE: After the administration of IV contrast, 5 mm thick sections acquired from the diaphragms to the symp hysis. 5 mm thick coronal and sagittal reformats were acquired. For radiation dose reduction, the f ollowing was used: automated exposure control, adjustment of mA and/or kV according to patient size. COMPARISON: CT of chest, abdomen and pelvis dated 12/13/2021. FINDINGS: Image quality: Excellent. ABDOMEN: Lung bases: Moderate left pleural effusion is seen with adjacent left basilar atelectasis. Mild right basilar atelectasis is also seen. 5 mm nodule is again seen in posterior medial right lower lobe ser ies 4 image 3 unchanged from prior study. Solid organs: Liver is normal in size. Interval development of oval hypodense area involving anterola teral right hepatic dome and measures up to 8.1 x 2.7 x 1.6 cm in size and measures 20 Hounsfield uni t in density. Spleen is normal in size and enhancement. Gallbladder is surgically absent. Biliary sy stem is non dilated. Pancreas enhances normally. No adrenal nodules. Kidneys demonstrate normal si ze and enhancement, without hydronephrosis. Small bilateral renal cysts are seen. Peritoneum and bowel: There is no bowel obstruction. No gross gastric or small bowel wall thickening. There is questionable descending colon and sigmoid colon wall thickening which may be due to underdi stention. Low-grade colitis cannot be excluded. No abscess collection. No free fluid of free air. Nodes and vessels: Mildly enlarged lymph nodes are seen in the paraesophageal space measures up to 9 mm in size series 3 image 11. Mildly enlarged lymph nodes in periaortic space is also seen measures u p to 1.1 cm in size series 3 image 24 and series 6 image 31. No other enlarged mesenteric or retroper itoneal lymphadenopathy is seen. Aorta and inferior vena cava are normal in size. Moderate atheroscl erotic calcifications throughout abdominal aorta is seen. Miscellaneous: No ventral hernias. PELVIS: Genitourinary: Bladder wall thickness is normal. Miscellaneous: No inguinal hernias or adenopathy. Bones: No suspicious bony lesions. No vertebral body compression fractures. IMPRESSION: 1. Persistent moderate left-sided pleural effusion with adjacent left basilar infiltrate/atelectasis unchanged over slightly increased compared to prior study. Mild right basilar atelectasis. Stable 5 m m right lower lobe nodule unchanged from prior studies. 2. Interval development of oval hypodense area involving right anterolateral hepatic dome measures 8. 1 x 2.7 x 1.6 cm in size and measures 20 Hounsfield unit in density. Finding may represent a subcapsu lar hepatic fluid collection of indeterminant etiology. No other hepatic lesion is noted. 3. Mildly enlarged lymph nodes seen in periesophageal space and adjacent to upper abdominal aorta as above not definitely seen on prior study and is concerning for metastatic lymphadenopathy. 4. Mild descending colon and sigmoid colon wall thickening concerning for low-grade colitis versus un ivan distention. Bowel obstruction. No abscess collection. No free fluid. Reviewed by: Dave Villeda MD on 08/02/2022 12:52 PM PST Approved by: Dave Villeda MD on 08/02/2022 12:52 PM PST Station ID: [id number]
[2022-08-02 13:23] VITALS: BP 115/78
[2022-08-02] MEDS ORDERED: iohexoL-300 100 ML VIAL IVP ONE (13:27)
--- NOTE | 2022-08-02 13:40 | ED Physician Documentation ---
PD HPI ABD PAIN - Stated complaint Stated Complaint: ABD PX/NAUSEA - Chief complaint Chief Complaint: Abd Pain - History obtained from History obtained from: Patient - Additional information Additional information: Patient is a 67-year-old with a history of metastatic ovarian cancer that she is currently undergoing chemotherapy for presenting for evaluation of nausea and vomiting and worsening abdominal pain. She started a new chemo treatment on Saturday and since that time has been having nausea and vomiting that is uncontrolled by Zofran or Decadron that she takes at home. She is also been hav ing trouble keeping down her pain medication and reports her abdominal pain seems worse.She denies fever, cough, chest pain or difficulty breathing. Review of Systems Constitutional: denies: Fever Nose: denies: Congestion Cardiac: denies: Chest pain / pressure Respiratory: denies: Dyspnea GI: reports: Abdominal Pain, Nausea, Vomiting. 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: Ovarian cancer : Other HEENT: Other Psych: Depression, Anxiety Musculoskeletal: Fatigue Derm: Other - Past Surgical History Past Surgical History: Yes General: Cholecystectomy /CADDYMASTER: section, Hysterectomy, Oophrectomy Cardiovascular: Cardiac catheterization - Present Medications Home Medications: Ambulatory Orders Medication Instructions Recorded Confirmed Fluoxetine HCl 20 mg PO DAILY 08/21/18 07/30/22 Levothyroxine [Synthroid] 75 mcg PO QDAC 08/21/18 07/30/22 LORazepam [Ativan] 0.5 mg PO Q6H PRN #60 tablet 08/09/20 07/30/22 Cholecalciferol [Vitamin D3] 4,000 units PO DAILY 09/05/20 07/30/22 oxyCODONE [Roxicodone] 5 - 10 mg PO Q4HR PRN 10/23/20 07/30/22 Omeprazole 40 mg PO DAILY 05/01/21 07/30/22 ondansetron HCL [Zofran] 4 mg PO Q6HR PRN #30 tab 06/19/21 07/30/22 Prochlorperazine [Compazine] 5 mg PO Q6H 08/16/21 07/30/22 ondansetron HCL [Ondansetron HCl] 8 mg PO TID PRN 12/22/21 07/30/22 Ondansetron Odt [Zofran Odt] 4 mg TL Q6H PRN #10 tablet 08/02/22 - Allergies Allergies/Adverse Reactions: Allergies Allergy/AdvReac Type Severity Reaction Status Date / Time No Known Drug Allergies Allergy Verified 08/02/22 10:41 - Social History Does the pt smoke?: Yes Smoking Status: Former smoker Does the pt drink ETOH?: Yes Does the pt have substance abuse?: No - POLST Patient has POLST: No PD ED PE NORMAL - General General: Alert and oriented X 3, No acute distress, Well developed/nourished - HEENT HEENT: Atraumatic - Neck Neck: Supple, no meningeal sign - Cardiac Cardiac: RRR, No murmur, Other (Port to chest wall which is nontender and no overlying erythema) - Respiratory Respiratory: No respiratory distress, Clear bilaterally - Abdomen Abdomen: Normal bowel sounds, Soft, Non distended, Other (Mild generalized abdominal tenderness, no rebound, no guarding) - Back Back: No CVA TTP - Derm Derm: Warm and dry - Extremities Extremities: No calf tenderness / cord - Neuro Neuro: Normal speech Results - Vitals Vitals: Vital Signs - 24 hr 08/02/22 08/02/22 10:37 13:22 Temperature 36.6 C Heart Rate 110 H 98 Respiratory 16 16 Rate Blood Pressure 114/69 115/78 O2 Saturation 95 99 Oxygen O2 Source Room air - Labs Labs: Laboratory Tests 08/02/22 08/02/22 10:55 10:55 WBC 12.6 H RBC 4.28 Hgb 13.6 Hct 43.1 MCV 100.7 H MCH 31.8 H MCHC 31.6 L RDW 14.0 Plt Count 110 L MPV 9.5 Neut # (Auto) 9.6 H Lymph # (Auto) 1.6 [place] # (Auto) 1.3 H Eos # (Auto) 0.0 Baso # (Auto) 0.0 Absolute Nucleated RBC 0.00 Nucleated RBC % 0.0 Sodium 131 L Potassium 3.8 Chloride 95 L Carbon Dioxide 25 Anion Gap 11.0 BUN 28 H Creatinine 1.0 Estimated GFR (MDRD) 55 L Glucose 163 H Calcium 8.8 Total Bilirubin 0.9 AST 56 H ALT 30 Alkaline Phosphatase 141 H Total Protein 7.6 Albumin 3.6 Globulin 4.0 Albumin/Globulin Ratio 0.9 L Lipase 33 PD Medical Decision Making - ED course Complexity details: reviewed results, re-evaluated patient, d/w patient, d/w family, d/w application support consultant Departure - Departure Disposition: 01 Home, Self Care Clinical Impression: Abdominal pain, Nausea & vomiting, Abnormal CT of the abdomen Condition: Stable Instructions: Nausea Vomit Control Prescriptions: Ondansetron Odt [Zofran Odt] 4 mg TL Q6H PRN #10 tablet PRN Reason: Nausea / Vomiting Comments: You were evaluated for nausea and vomiting and worsening of your abdominal pain. The CT scan of your abdomen did have some abnormalities including a fluid collection around your liver. The radiologist is recommending an MRI of your liver. Please contact your oncologist or primary care doctor to order this. I also did speak with one of our surgeons and this not does not need to be done on an emergent basis but should be done In the near future. There is also some abnormality seen with enlarged lymph nodes which is concerning for metastatic disease of your known cancer. Please again follow-up with your oncologist regarding these results. I have sent a prescription for Zofran to [facility] in [place] for the type that dissolves under your tongue which may be more helpful for you. If it anytime you have any new or worsening symptoms please return to the emergency department. IMPRESSION: 1. Persistent moderate left-sided pleural effusion with adjacent left basilar infiltrate/atelectasis unchanged over slightly increased compared to prior study. Mild right basilar atelectasis. Stable 5 mm right lower lobe nodule unchanged from prior studies. 2. Interval development of oval hypodense area involving right anterolateral hepatic dome measures 8.1 x 2.7 x 1.6 cm in size and measures 20 Hounsfield unit in density. Finding may represent a subcapsular hepatic fluid collection of indeterminant etiology. No other hepatic lesion is noted. 3. Mildly enlarged lymph nodes seen in periesophageal space and adjacent to upper abdominal aorta as above not definitely seen on prior study and is concerning for metastatic lymphadenopathy. 4. Mild descending colon and sigmoid colon wall thickening concerning for low- grade colitis versus under distention. Bowel obstruction. No abscess collection. No free fluid. Discharge Date/Time: 08/02/22 14:10
== END 2022-08-02 14:10 | disposition home or self-care (01) ==
LOC: ED 10:21
DX: R11.2 Nausea with vomiting, unspecified (principal); R10.9 Unspecified abdominal pain; R93.5 Abnormal findings on diagnostic imaging of other abdominal regions, including retroperitoneum; R59.0 Localized enlarged lymph nodes; C56.9 Malignant neoplasm of unspecified ovary; Z79.899 Other long term (current) drug therapy; Z87.891 Personal history of nicotine dependence
CPT/HCPCS: 36415; 74177; 80053; 83690; 85025; 96361; 96374; 96375; 99284; Q9967

== ENCOUNTER 2022-08-17 18:05 | Emergency (ER) | payer MEDICARE, OTHER ==
[2022-08-17] MEDS ORDERED: iohexoL-300 100 ML VIAL ONE (18:45)
[2022-08-17] MEDS ORDERED: IPRATROPIUM/ALBUTEROL 3 ML NEB INH STA (18:45)
[2022-08-17] MEDS ORDERED: methylPREDNISolone SUCCINATE 125 MG/2 ML VIAL IVP STA (18:45)
--- NOTE | 2022-08-17 18:46 | ED Physician Documentation ---
PD HPI CHEST PAIN - Stated complaint Stated Complaint: SOA - Chief complaint Chief Complaint: Resp - History obtained from History obtained from: Patient, Family - Additional information Additional information: 67-year-old woman with history of COPD, not on oxygen or home therapy and stage IV ovarian cancer presents at the request of the palliative care nurse practitioner for evaluation for pulmonary embolism. She has had a cough for 2 weeks which was worse today and she feels kind of weak and dizzy today. She was seen in the clinic and noted to have pulse oximetry of 89% and sent here for ky luation of for PE. She denies new leg pain or swelling but she does have neuropathy in her legs from chemo. She is here with her . She had a CT of the chest earlier in the day with contrast without acute findings, I discussed it with the radiologist and it was diagnostic for central but not peripheral PE. She does have severe COPD on the scan to my eye. Review of Systems Constitutional: reports: Chills. 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 : Other HEENT: Other Psych: Depression, Anxiety Musculoskeletal: Fatigue Derm: Other - Past Surgical History Past Surgical History: Yes General: Cholecystectomy /HABILITATION TRAINING SPECIALIST: section, Hysterectomy, Oophrectomy Cardiovascular: Cardiac catheterization - Present Medications Home Medications: Ambulatory Orders Medication Instructions Recorded Confirmed Fluoxetine HCl 20 mg PO DAILY 08/21/18 07/30/22 Levothyroxine [Synthroid] 75 mcg PO QDAC 08/21/18 07/30/22 LORazepam [Ativan] 0.5 mg PO Q6H PRN #60 tablet 08/09/20 07/30/22 Cholecalciferol [Vitamin D3] 4,000 units PO DAILY 09/05/20 07/30/22 oxyCODONE [Roxicodone] 5 - 10 mg PO Q4HR PRN 10/23/20 07/30/22 Omeprazole 40 mg PO DAILY 05/01/21 07/30/22 ondansetron HCL [Zofran] 4 mg PO Q6HR PRN #30 tab 06/19/21 07/30/22 Prochlorperazine [Compazine] 5 mg PO Q6H 08/16/21 07/30/22 ondansetron HCL [Ondansetron HCl] 8 mg PO TID PRN 12/22/21 07/30/22 Ondansetron Odt [Zofran Odt] 4 mg TL Q6H PRN #10 tablet 08/02/22 Doxycycline [Vibramycin] 100 mg PO BID #14 tablet 08/17/22 predniSONE [Deltasone] 20 mg PO [id number] #21 tab 08/17/22 - Allergies Allergies/Adverse Reactions: Allergies Allergy/AdvReac Type Severity Reaction Status Date / Time No Known Drug Allergies Allergy Verified 08/02/22 10:41 - Social History Does the pt smoke?: Yes Smoking Status: Former smoker Does the pt drink ETOH?: Yes Does the pt have substance abuse?: No - POLST Patient has POLST: No PD ED PE NORMAL - Vitals Vital signs reviewed: Yes - General General: Alert and oriented X 3, No acute distress - Cardiac Cardiac: RRR, No murmur - Respiratory Respiratory: No respiratory distress, Other (Nonlabored breathing, diminished throughout) - Abdomen Abdomen: Non tender - Extremities Extremities: No edema, No calf tenderness / cord - Neuro Neuro: Alert and oriented X 3, Normal speech Results - Vitals Vitals: Vital Signs - 24 hr 08/17/22 18:08 Temperature 36.8 C Heart Rate 97 Respiratory 14 Rate Blood Pressure 129/63 O2 Saturation 89 L Oxygen O2 Source Room air - Labs Labs: Laboratory Tests 08/17/22 08/17/22 19:00 19:00 WBC 4.8 RBC 3.13 L Hgb 9.9 L Hct 31.5 L MCV 100.6 H MCH 31.6 H MCHC 31.4 L RDW 14.6 Plt Count 80 L MPV 10.6 Neut # (Auto) 3.0 Lymph # (Auto) 1.2 L [place] # (Auto) 0.5 Eos # (Auto) 0.0 Baso # (Auto) 0.0 Absolute Nucleated RBC 0.00 Nucleated RBC % 0.0 Sodium 133 L Potassium 3.6 Chloride 100 L Carbon Dioxide 25 Anion Gap 8.0 BUN 11 Creatinine 0.7 Estimated GFR (MDRD) 84 L Glucose 100 Calcium 8.2 L PD Medical Decision Making - ED course ED course: 67-year-old woman with stage IV ovarian cancer and COPD presents with nonproductive cough and shortness of breath. Referred from clinic for rule out or pulmonary embolism. CT pulmonary angiogram was done and interpreted independently by me and also the final report was reviewed from Dr. Saeed Mooney showing emphysema but no pulmonary embolism. She has oxygen at home, just delivered today. We will treat for COPD flare given lack of other findings. Departure - Departure Disposition: Home, Self Care Clinical Impression: Asthma exacerbation in COPD Condition: Stable Record reviewed to determine appropriate education?: Yes Instructions: Emphysema Dc Prescriptions: predniSONE [Deltasone] 20 mg PO [id number] #21 tab Doxycycline [Vibramycin] 100 mg PO BID #14 tablet Comments: You were seen today for shortness of breath and cough with mildly low oxygen saturations. Thankfully you have oxygen at home. There is no evidence of blood clot in the lungs based on the CT. The steroids and antibiotic should be helpful. Return if worse.
[2022-08-17 19:07] LABS: BASOPHILS % (AUTO) 0.4 %; EOSINOPHILS % (AUTO) 0.4 %; HCT - HEMATOCRIT 31.5 % (37.0-47.0); HGB - HEMOGLOBIN 9.9 g/dL (12.0-16.0); LYMPHOCYTES # (AUTO) 1.2 10^3/uL (1.5-3.5); LYMPHOCYTES % (AUTO) 25.5 %; MEAN CORPUSCULAR HEMOGLOBIN 31.6 pg (27.0-31.0); MEAN CORPUSCULAR HGB CONC 31.4 g/dL (32.0-36.0); MEAN CORPUSCULAR VOLUME 100.6 fL (81.0-99.0); MEAN PLATELET VOLUME 10.6 fL (7.9-10.8); MONOCYTES # (AUTO) 0.5 10^3/uL (0.0-1.0); NEUTROPHILS % (AUTO) 63.5 %; PLT - PLATELET COUNT 80 10^3/uL (130-450); RED BLOOD COUNT 3.13 10^6/uL (4.20-5.40); RED CELL DISTRIBUTION WIDTH 14.6 % (12.0-15.0); WHITE BLOOD COUNT 4.8 x10^3/uL (4.8-10.8)
[2022-08-17 19:18] LABS: CALCIUM 8.2 mg/dL (8.5-10.3); CREATININE 0.7 mg/dL (0.4-1.0); POTASSIUM 3.6 mmol/L (3.5-5.0)
[2022-08-17] MEDS ORDERED: iohexoL-300 100 ML VIAL IVP ONE (19:23)
--- NOTE | 2022-08-17 19:37 | CT Report ---
PROCEDURE: ANGIO CHEST W/WO INDICATIONS: PE protocol for hypoxemia CONTRAST: 80 omni 300 TECHNIQUE: After the administration of intravenous contrast, 2 mm axial images were acquired from the pulmonary apices to the posterior costophrenic angles during the arterial phase. In addition, 1 mm lung kernel and 5 mm soft tissue kernel reconstructions were performed. 3-dimensional coronal oblique maximum int ensity projection (MIP) reformats, 8 mm axial MIP, and 5 mm coronal and sagittal MPR reformats were t hen performed through the thorax. For radiation dose reduction, the following was used: automated exp osure control, adjustment of mA and/or kV according to patient size. COMPARISON: Same-day CT chest FINDINGS: Image quality: Excellent. Pulmonary arteries: Pulmonary arteries are normal in size, and demonstrate no intraluminal filling d efects to suggest central pulmonary embolism. Lungs and pleura: Moderate emphysema. Small left pleural effusion with overlying atelectasis. Mediastinum: Heart size is normal, without pericardial effusion. No mediastinal or hilar adenopathy . Thoracic aorta is normal in caliber and enhancement. Esophagus is normal in caliber, without hiat al hernia. Bones and chest wall: No suspicious bony lesions. Ribs and thoracic spine appear intact throughout. No axillary or supraclavicular adenopathy. The thyroid is normal in size and there are no incident al findings. Abdomen: Visualized upper abdominal solid organs appear normal in the early arterial phase of enhanc ement. IMPRESSION: No pulmonary embolism. Moderate emphysema. Reviewed by: Saeed Mooney MD on 08/17/2022 7:35 PM PST Approved by: Saeed Mooney MD on 08/17/2022 7:35 PM PST Station ID: [id number]
[2022-08-17] MEDS ORDERED: DOXYCYCLINE 100 MG TABLET PO STA (19:45)
[2022-08-17 20:03] VITALS: BP 120/70
== END 2022-08-17 20:10 | disposition home or self-care (01) ==
LOC: ED 18:05
DX: J44.1 Chronic obstructive pulmonary disease with (acute) exacerbation (principal); C56.9 Malignant neoplasm of unspecified ovary; Z87.891 Personal history of nicotine dependence
CPT/HCPCS: 36415; 71275; 80048; 85025; 94640; 94664; 96374; 99284; A9270; Q9967

== ENCOUNTER 2022-11-12 12:19 | Outpatient (CLI) | payer MEDICARE, OTHER ==
--- NOTE | 2022-11-12 13:51 | XRAY Report ---
PROCEDURE: Chest 2 View X-Ray INDICATIONS: HYPOXIA/PNEUMONITIS/CHRONIC OBSTRUCTIVE LUNG DISEA TECHNIQUE: 2 views of the chest were acquired. COMPARISON: CT chest 08/17/2022 FINDINGS: Surgical changes and devices: None. Lungs and pleura: No pleural effusions or pneumothorax. Lungs are clear. Mediastinum: Mediastinal contours appear normal. Heart size is minimally prominent. Bones and chest wall: No suspicious bony lesions. Overlying soft tissues appear unremarkable. IMPRESSION: No acute pulmonary process. Reviewed by: Yeny Tsang MD on 11/12/2022 1:49 PM PDT Approved by: Yeny Tsang MD on 11/12/2022 1:49 PM PDT Station ID: [id number]
== END 2022-11-12 12:20 | disposition home or self-care (01) ==
LOC: DI 12:19
PROVIDERS: ATTEND Nurse Practitioner Adult Health
DX: R09.02 Hypoxemia (principal); J18.9 Pneumonia, unspecified organism; J44.9 Chronic obstructive pulmonary disease, unspecified

== ENCOUNTER 2022-11-25 10:16 | Emergency (ER) | payer MEDICARE, OTHER ==
[2022-11-25] MEDS ORDERED: IPRATROPIUM/ALBUTEROL 3 ML NEB INH STA (11:19)
[2022-11-25 12:29] LABS: BASOPHILS % (AUTO) 0.2 %; HCT - HEMATOCRIT 39.6 % (37.0-47.0); HGB - HEMOGLOBIN 12.4 g/dL (12.0-16.0); LYMPHOCYTES % (AUTO) 8.8 %; MEAN CORPUSCULAR HEMOGLOBIN 30.9 pg (27.0-31.0); MEAN CORPUSCULAR HGB CONC 31.3 g/dL (32.0-36.0); MEAN CORPUSCULAR VOLUME 98.8 fL (81.0-99.0); MEAN PLATELET VOLUME 10.5 fL (7.9-10.8); MONOCYTES # (AUTO) 0.8 10^3/uL (0.0-1.0); MONOCYTES % (AUTO) 6.9 %; NEUTROPHILS # (AUTO) 9.6 10^3/uL (1.5-6.6); NEUTROPHILS % (AUTO) 83.6 %; PLT - PLATELET COUNT 93 10^3/uL (130-450); RED BLOOD COUNT 4.01 10^6/uL (4.20-5.40); RED CELL DISTRIBUTION WIDTH 14.4 % (12.0-15.0); WHITE BLOOD COUNT 11.4 x10^3/uL (4.8-10.8)
[2022-11-25 12:41] LABS: ALBUMIN 3.5 g/dL (3.2-5.5); BILIRUBIN,TOTAL 0.7 mg/dL (0.2-1.0); CALCIUM 9.1 mg/dL (8.5-10.3); CREATININE 0.7 mg/dL (0.4-1.0); POTASSIUM 3.7 mmol/L (3.5-5.0)
--- NOTE | 2022-11-25 12:48 | XRAY Report ---
PROCEDURE: Chest 1 View X-Ray INDICATIONS: dyspnea TECHNIQUE: One view of the chest was acquired. COMPARISON: None. FINDINGS: Surgical changes and devices: Right chest wall port appears well-positioned. Lungs and pleura: Increased perihilar airspace opacities are seen. No focal consolidation. There is opacity over the lateral left chest, probably a layering pleural effusion but this is not well visual ized on one view. Mediastinum: Heart size is enlarged. The aorta is calcified. Bones and chest wall: No suspicious bony lesions. Overlying soft tissues appear unremarkable. IMPRESSION: 1. Probable left pleural effusion. 2. Cardiomegaly and perihilar infiltrates likely congestive heart failure. A diffuse infectious proce ss could also cause this appearance. Reviewed by: Bahman Eckert on 11/25/2022 12:47 PM PDT Approved by: Bahman Eckert on 11/25/2022 12:47 PM PDT Station ID: [id number]
[2022-11-25] MEDS ORDERED: iohexoL-300 100 ML VIAL ONE (13:21)
[2022-11-25] MEDS ORDERED: iohexoL-300 100 ML VIAL IVP ONE (13:56)
--- NOTE | 2022-11-25 14:13 | CT Report ---
PROCEDURE: ANGIO CHEST W/WO INDICATIONS: dyspnea, cancer pt/chemo CONTRAST: 80ml omni 300 TECHNIQUE: After the administration of intravenous contrast, 2 mm axial images were acquired from the pulmonary apices to the posterior costophrenic angles during the arterial phase. In addition, 1 mm lung kernel and 5 mm soft tissue kernel reconstructions were performed. 3-dimensional coronal oblique maximum int ensity projection (MIP) reformats, 8 mm axial MIP, and 5 mm coronal and sagittal MPR reformats were t hen performed through the thorax. For radiation dose reduction, the following was used: automated exp osure control, adjustment of mA and/or kV according to patient size. COMPARISON: 08/17/2022. FINDINGS: Image quality: Excellent. Large vessels: No filling defects within the opacified pulmonary arteries, accounting for motion and contrast timing. No evidence of acute aortic syndrome or aortic aneurysm. Lungs and pleura: No pleural effusions. No pneumothorax. The lungs have centrilobular and paraseptal emphysematous changes. There is consolidation and collapse of the left lower lobe with adjacent mode rate to large pleural effusion. Mediastinum: Heart size is normal. No pericardial effusions. No mediastinal adenopathy by size criter ia. Chest wall and lower neck: Thyroid is unremarkable. No axillary or supraclavicular adenopathy by size . Bones: No aggressive osseous abnormality. Upper Abdomen: Unremarkable. IMPRESSION: 1. No pulmonary embolism. 2. Centrilobular and paraseptal emphysema. 3. Consolidation and atelectatic collapse [place] of the left lower lobe with a surrounding moderate to large sized pleural effusion. 4. Patchy areas of airspace opacity in the right lung could be due to pulmonary edema or a diffuse in fectious process. Reviewed by: Bahman Eckert on 11/25/2022 2:11 PM PDT Approved by: Bahman Eckert on 11/25/2022 2:11 PM PDT Station ID: [id number]
[2022-11-25] MEDS ORDERED: lidocaine 1% 20 ML MDV SUBQ ONE (15:32)
[2022-11-25] MEDS ORDERED: HYDROmorphone 1 MG/ML CARPUJECT IVP STA (16:04)
[2022-11-25] MEDS ORDERED: HYDROmorphone 0.5 MG/0.5 ML SYRINGE IVP STA (16:57)
--- NOTE | 2022-11-25 18:01 | XRAY Report ---
PROCEDURE: Chest 1 View X-Ray INDICATIONS: post-procedural eval TECHNIQUE: One view of the chest was acquired. COMPARISON: Earlier in the day on 11/25/2022. FINDINGS: Surgical changes and devices: None. Lungs and pleura: No left-sided pneumothorax is seen. There is a small left-sided pleural effusion, which is clearly improved in size compared to the prior. Generalized interstitial prominence can be s een. Mediastinum: Mediastinal contours appear normal. Heart size is mildly enlarged. Bones and chest wall: No suspicious bony lesions. Age-appropriate degenerative changes are seen. O verlying soft tissues appear unremarkable. IMPRESSION: Negative for post thoracentesis pneumothorax. Decreased size of the left-sided pleural effusion. Cardiomegaly and interstitial prominence. CHF is suspected. Reviewed by: Garrett Cuellar MD on 11/25/2022 4:59 PM [place] Approved by: Garrett Cuellar MD on 11/25/2022 4:59 PM [place] Station ID: [id number]
--- NOTE | 2022-11-25 18:27 | ED Physician Documentation ---
History of Present Illness - Stated complaint Stated Complaint: SOA - Chief complaint Chief Complaint: Resp - History obtained from History obtained from: Patient - Additonal information Additional information: The patient comes to the emergency department chief complaint of shortness of breath. She is currently receiving chemotherapy for stage IV metastatic ovarian cancer and just had a chemotherapy treatment about 1 week ago. She states that every time she gets chemo, she has some days of shortness of breath afterward. However, she states this time the shortness of breath has not been resolving and she feels it is getting worse. The patient has had a couple of pleural effusions before, once about 4 years ago and once about 2 years ago, both of which have been drained. She does not have any mets to her lungs that she knows of, but does note that the effusion was found to be malignant with cancer cells in it and this is actually how she was diagnosed with ovarian cancer. The patient states she feels okay sitting in the bed, but as soon as she tries to exert herself at all, she gets extremely winded. She is on oxygen at home normally, at around 2 L, but has had to go up to 3 to 3.5 L since her last chemo treatment. She denies any fevers, chills, or new cough. No other complaints at this time. She does not have any cardiac issues that she knows of. PD PAST MEDICAL HISTORY - Past Medical History Cardiovascular: Hypertension, Coronary artery disease Respiratory: Shortness of breath, Other Neuro: Headaches, Peripheral neuropathy, Tremors Endocrine/Autoimmune: HyPOthyroidism GI: None MUSEUM GUIDE: Ovarian cancer : Other HEENT: Other Psych: Depression, Anxiety Musculoskeletal: Fatigue Derm: Other Other Past Medical History: ovarian cancer w/mets to lungs - Past Surgical History Past Surgical History: Yes General: Cholecystectomy /MUSEUM GUIDE: section, Hysterectomy, Oophrectomy Cardiovascular: Cardiac catheterization - Present Medications Home Medications: Ambulatory Orders Medication Instructions Recorded Confirmed Fluoxetine HCl 20 mg PO DAILY 08/21/18 11/19/22 Levothyroxine [Synthroid] 75 mcg PO QDAC 08/21/18 11/19/22 LORazepam [Ativan] 0.5 mg PO Q6H PRN #60 tablet 08/09/20 11/19/22 Cholecalciferol [Vitamin D3] 4,000 units PO DAILY 09/05/20 11/19/22 oxyCODONE [Roxicodone] 5 - 10 mg PO Q4HR PRN 10/23/20 11/19/22 Prochlorperazine [Compazine] 5 mg PO Q6H 08/16/21 11/19/22 Doxycycline [Vibramycin] 100 mg PO BID #14 tablet 08/17/22 11/19/22 Ondansetron Odt [Zofran Odt] 4 mg TL Q6H PRN #30 tablet 08/20/22 11/19/22 Magnesium Oxide 400 mg PO BID 60 Days #120 tablet 09/17/22 11/19/22 Esomeprazole Magnesium [Nexium] 40 mg PO DAILY 09/24/22 11/19/22 Magnesium Oxide 400 mg pe PO BID 09/24/22 11/19/22 predniSONE [Deltasone] 40 mg PO DAILY 09/24/22 11/19/22 fentaNYL [Fentanyl 25mcg patch] 1 each TD UD 10/08/22 11/19/22 - Allergies Allergies/Adverse Reactions: Allergies Allergy/AdvReac Type Severity Reaction Status Date / Time No Known Drug Allergies Allergy Verified 08/02/22 10:41 - Social History Does the pt smoke?: Yes Smoking Status: Current every day smoker Does the pt drink ETOH?: Yes Does the pt have substance abuse?: No - POLST Patient has POLST: No PD ED PE NORMAL - Vitals Vital signs reviewed: Yes - General General: Alert and oriented X 3, No acute distress, Well developed/nourished - HEENT HEENT: Atraumatic, PERRL, EOMI - Neck Neck: Supple, no meningeal sign - Cardiac Cardiac: RRR, No murmur, Strong equal pulses - Respiratory Respiratory: No respiratory distress, Clear bilaterally, Other (Diminished breath sounds in the lower half of the left lung field.) - Abdomen Abdomen: Soft, Non tender, Non distended - Derm Derm: Normal color, Warm and dry, No rash - Extremities Extremities: No deformity, No edema - Neuro Neuro: Alert and oriented X 3, Other (Grossly intact) - Psych Psych: Normal mood, Normal affect Results - Vitals Vitals: Vital Signs - 24 hr 11/25/22 11/25/22 11/25/22 10:53 11:19 12:57 Temperature 36.7 C Heart Rate 89 84 88 Respiratory 18 20 21 Rate Blood Pressure 105/64 149/88 H O2 Saturation 91 L 95 If not protocol 3 3 : Oxygen Flow, liters/minute 11/25/22 11/25/22 11/25/22 14:00 16:00 18:38 Temperature Heart Rate 92 91 91 Respiratory 20 22 17 Rate Blood Pressure 130/71 127/70 105/70 O2 Saturation 96 92 92 If not protocol 3 3 : Oxygen Flow, liters/minute Oxygen O2 Source Nasal cannula Oxygen Flow Rate 3 - Labs Labs: Laboratory Tests 11/25/22 11/25/22 11/25/22 12:17 12:17 12:17 WBC 11.4 H RBC 4.01 L Hgb 12.4 Hct 39.6 MCV 98.8 MCH 30.9 MCHC 31.3 L RDW 14.4 Plt Count 93 L MPV 10.5 Neut # (Auto) 9.6 H Lymph # (Auto) 1.0 L [place] # (Auto) 0.8 Eos # (Auto) 0.0 Baso # (Auto) 0.0 Absolute Nucleated RBC 0.00 Nucleated RBC % 0.0 D-Dimer 931.5 H Sodium 139 Potassium 3.7 Chloride 100 L Carbon Dioxide 29 Anion Gap 10.0 BUN 16 Creatinine 0.7 Estimated GFR (MDRD) 84 L Glucose 159 H Calcium 9.1 Total Bilirubin 0.7 AST 45 H ALT 24 Alkaline Phosphatase 60 B-Natriuretic Peptide Total Protein 7.0 Albumin 3.5 Globulin 3.5 Albumin/Globulin Ratio 1.0 Lipase 48 11/25/22 12:17 WBC RBC Hgb Hct MCV MCH MCHC RDW Plt Count MPV Neut # (Auto) Lymph # (Auto) [place] # (Auto) Eos # (Auto) Baso # (Auto) Absolute Nucleated RBC Nucleated RBC % D-Dimer Sodium Potassium Chloride Carbon Dioxide Anion Gap BUN Creatinine Estimated GFR (MDRD) Glucose Calcium Total Bilirubin AST ALT Alkaline Phosphatase B-Natriuretic Peptide 83 Total Protein Albumin Globulin Albumin/Globulin Ratio Lipase - Rads (name of study) Chest x-ray Relevant Findings:: Final report received, See rad report (Probable left pleural effusion, cannot rule out infectious process) CTA chest Relevant Findings:: Final report received, See rad report (No PE; Large left pleural effusion with compressive atelectasis of left lower lobe.) Repeat chest x-ray Relevant Findings:: Final report received, See rad report (No pneumothorax; decreased size of left-sided pleural effusion) Procedures - Thoracentesis - Major Preparation: Consent obtained, Sterile prep and drape, Sitting Technique: Catheter over needle, Intercostal space - enter (8), Left, Midscapular line Fluid: Clear (With mild blood tingeing), Other (900 cc of fluid removed with marked improvement in patient's respiratory status.) Aftercare: CXR obtained, No pneumo, No complications, Patient tolerated well, Dressing applied PD Medical Decision Making - ED course Complexity details: reviewed results, re-evaluated patient, considered di fferential, d/w patient, d/w family ED course: The patient remained fairly stable in the emergency department, with oxygen saturations around 93 to 94% on 3.5 L of oxygen per nasal cannula. However, she was noted to get quite short of breath even when just ambulating to the bathroom. Patient was worked up extensively with various possible etiologies for his symptoms in mind. Work-up included a chest x-ray, which showed a likely pleural effusion, and a CT angiogram of the chest out of concern for possible PE, which showed no PE, but a large left pleural effusion. Labs, including ER abdominal panel, BNP, and CBC were ordered and interpreted by me. D-dimer was elevated which was not surprising, given the patient's cancer. No significant abnormalities were found. I discussed with the patient that she ought to have a thoracentesis, as she is quite symptomatic and most likely would feel quite a bit better if we drain some fluid off. The patient was agreeable to this plan and did consent for the procedure in the presence of her significant other. She was treated symptomatically with Dilaudid, as she was concerned about the pain level she had had on previous procedures. The patient tolerated the procedure well and were able to take off about 900 cc of fluid, stopping when the patient began to cough and the fluid flow began sputtering. The patient reported feeling much better and breathing much more easily afterward, and repeat chest x-ray showed significant improvement in the patient's effusion without pneumothorax. I discussed with the patient that she can follow-up with her oncologist to set up a CT or ultrasound-guided thoracentesis in the future to fine-tune the fluid removal and possibly remove more. At this point, patient is stable for discharge home. Departure - Departure Disposition: 01 Home, Self Care Clinical Impression: Pleural effusion Dyspnea Qualifiers: Dyspnea type: unspecified Qualified Code(s): R06.00 - Dyspnea, unspecified Condition: Stable Instructions: ED Effusion Pleural Comments: We took nearly a liter of fluid out of your chest today. Please follow-up with your oncologist to discuss further treatment, it should your pleural effusion become rapidly recurrent. Your repeat chest x-ray looks great, with no evidence of any complications from the drainage. Discharge Date/Time: 11/25/22 18:38
[2022-11-25 18:39] VITALS: BP 105/70
== END 2022-11-25 18:38 | disposition home or self-care (01) ==
LOC: ED 10:16
DX: J90 Pleural effusion, not elsewhere classified (principal); C56.9 Malignant neoplasm of unspecified ovary; Z79.899 Other long term (current) drug therapy; Z99.81 Dependence on supplemental oxygen; F17.200 Nicotine dependence, unspecified, uncomplicated
CPT/HCPCS: 32554; 36415; 71045; 71275; 80053; 83690; 83880; 85025; 85379; 93005; 94640; 96374; 96376; 99285; J1170; Q9967

== ENCOUNTER 2022-12-17 11:18 | Outpatient (CLI) | payer MEDICARE, OTHER ==
--- NOTE | 2022-12-17 11:42 | XRAY Report ---
PROCEDURE: Chest 2 View X-Ray INDICATIONS: PLEURAL EFFUSION TECHNIQUE: 2 views of the chest were acquired. COMPARISON: Chest x-ray 11/25/2022 FINDINGS: Surgical changes and devices: Right Port-A-Cath is unchanged. Lungs and pleura: There is been interval enlargement of left pleural effusion now moderate in size. Interstitial prominence is present consistent with edema, although improved compared to prior exam. Mediastinum: Mediastinal contours appear normal. Heart size is normal. Bones and chest wall: No suspicious bony lesions. Overlying soft tissues appear unremarkable. IMPRESSION: Enlarging left pleural effusion. Underlying areas of pneumonia, atelectasis or potentially mass lesio n cannot be excluded. Reviewed by: Yeny Tsang MD on 12/17/2022 11:41 AM PDT Approved by: Yeny Tsang MD on 12/17/2022 11:41 AM PDT Station ID: [id number]
== END 2022-12-17 11:19 | disposition home or self-care (01) ==
LOC: DI 11:18
PROVIDERS: ATTEND Family Medicine
DX: J91.8 Pleural effusion in other conditions classified elsewhere (principal); J70.2 Acute drug-induced interstitial lung disorders

== ENCOUNTER 2022-12-18 12:27 | Outpatient (CLI) | payer MEDICARE, OTHER ==
[2022-12-18 12:47] LABS: INR 1.1 (0.8-1.2); PT - PROTHROMBIN TIME 12.5 secs (9.9-12.6)
[2022-12-18 12:54] LABS: PARTIAL THROMBOPLASTIN TIME 25.9 secs (24.9-33.3)
[2022-12-18] MEDS ORDERED: LIDOCAINE-MPF 1% 5 ML VIAL ONE ×2 (14:33→15:01)
--- NOTE | 2022-12-18 15:26 | XRAY Report ---
PROCEDURE: Post Thoracentesis 1V CXR INDICATIONS: POST THORACENTESIS TECHNIQUE: One view of the chest was acquired. COMPARISON: 12/17/2022 FINDINGS: Surgical changes and devices: Right portacatheter terminates in the lower SVC. Lungs and pleura: Mild to moderate pleural effusion persists, with by basilar opacities, probably ai rspace disease and atelectasis. No pneumothorax. Mediastinum: Heart size is within normal limits. Bones and chest wall: No suspicious bony lesions. Overlying soft tissues appear unremarkable. IMPRESSION: Mild to moderate left pleural effusion persists, following thoracentesis. Bibasilar lung opacities an d atelectasis also present. Reviewed by: Wilmer Ayala MD on 12/18/2022 3:25 PM PDT Approved by: Wilmer Ayala MD on 12/18/2022 3:25 PM PDT Station ID: [id number]
[2022-12-18] MEDS ORDERED: LIDOCAINE-MPF 1% 5 ML VIAL TD ONE (16:03)
--- NOTE | 2022-12-18 16:55 | Ultrasound Report ---
PROCEDURE: Thoracentesis Puncture INDICATIONS: LEFT PLEURAL EFFUSION TECHNIQUE: The indications, alternatives, benefits, risks, and complications of the procedure were explained to the patient. Written informed consent was obtained and placed in the chart. The chest was examined sonographically, and an appropriate site was chosen for thoracentesis. The skin was prepared and kunal ped in the usual sterile fashion, and 1% lidocaine was infiltrated from the skin down through the ple ural surface. A 19-gauge catheter-covered needle was then introduced into the pleural space, the cat heter was advanced and the needle was withdrawn, and thereafter pleural fluid was aspirated. The cat heter was then removed and a dressing was applied. COMPARISON: 12/17/2022 chest radiograph FINDINGS: Access site: Left hemithorax. Needle: One-Step centesis catheter with introducer needle. Fluid volume and description: Dark serous, 600 cc Fluid sent for diagnostic testing: No Medications: 1% lidocaine for local anaesthesia. Complications: None; post-procedural chest radiograph is pending to assess for pneumothorax. IMPRESSION: Successful ultrasound-guided thoracentesis. Reviewed by: Wilmer Ayala MD on 12/18/2022 4:54 PM PDT Approved by: Wilmer Ayala MD on 12/18/2022 4:54 PM PDT Station ID: [id number]
== END 2022-12-18 12:28 | disposition home or self-care (01) ==
LOC: LAB 12:27
PROVIDERS: ATTEND Family Medicine
DX: C56.9 Malignant neoplasm of unspecified ovary (principal); J91.0 Malignant pleural effusion; J98.11 Atelectasis; R91.8 Other nonspecific abnormal finding of lung field
CPT/HCPCS: 32555; 36415; 85049; 85610; 85730

== ENCOUNTER 2022-12-22 12:09 | Outpatient (CLI) | payer MEDICARE, OTHER | END 2022-12-22 12:10 | disposition left against medical advice (07) | LOC: EMS 12:09 | DX: R06.03 Acute respiratory distress (principal) ==